=== PATIENT | female | born 1955 | race Caucasian/White ===

== ENCOUNTER 2020-12-05 08:47 | Inpatient (IN) | payer BC ==
[2020-12-05] MEDS: Cefepime 2 GM Vial IVPUSH SCH ×2 (14:58→21:43)
[2020-12-05] MEDS ORDERED: Pantoprazole 40 MG Tab.CR PO ONE (15:54)
[2020-12-05] MEDS ORDERED: Sucralfate 1 GM Tab PO ONE (16:30)
[2020-12-05] MEDS: Metoprolol Tartrate 50 MG Tab PO SCH (18:04)
[2020-12-05] MEDS: Acetaminophen/HYDROcodone 325-10 MG Tab PO PRN ×2 (18:07→21:42)
[2020-12-05] MEDS: Rivaroxaban 15 MG Tab PO SCH (18:09)
--- NOTE | 2020-12-05 20:01 | HP ---
This is a swing bed admission. HISTORY OF PRESENT ILLNESS: This is a 65-year-old female who was transferred here for swing bed care from [facility] in [place]. I received the report yesterday provider to provider from Marilyn De La O, who is a certified nurse practitioner at [place]. Essentially, the patient had a laminectomy for an L1 fracture on November 03, 2020. This was following a compression fracture with kyphoplasty. She did fairly well initially, but started having significant increase in her back pain that was eventually very severe and nonradiating. The pain was mostly in the lower back where she has had the surgery. She was advised to be admitted and have surgical debridement. This was performed. In surgery, they noticed that there was an opening that was tracking deep inside and the bone was exposed. The patient ended up instrumented from L4 to T10. She did develop a Pseudomonas infection. She is immunocompromised as she is on prednisone 10 mg daily for "blood vessel inflammation" which could be vasculitis. She has poor healing. She initially had a wound VAC; however, this has been discontinued. The patient has been anemic with a hemoglobin of 8.9. She developed a left DVT and was prescribed Xarelto starting at a 15 mg dose increasing to 20 mg. She is on IV cefepime. She follows up with Infectious Disease in one week. She also follows up with Dr. Nolasco on December 18. She needs to have lab work drawn on November 18, which will include a CBC, CMP, CRP and sedimentation rate as well as a creatinine. SPECIAL INSTRUCTIONS: On discharge included the patient is a full code. She does need physical and occupational therapy to treat and evaluate. She is on a regular diet. She is to have knee-high SHASHANK hose. She may have a cold pack to the operative site. She does have a PICC line for antibiotic administration. Aquacel is to be changed on December 08 to dry gauze and then change daily. She is to be up with an [place] brace. The patient does have a history of hypertension and myocardial infarction. She has tizanidine as well as baclofen for muscle spasms. She has been prescribed metoprolol, lisinopril as well as hydrochlorothiazide for her hypertension. She developed a DVT postop and is taking Xarelto. She does have some neuropathic pain and is taking Lyrica. She has a blood vessel inflammation which seems to be possibly a vasculitis and is taking Lyrica. For her postop infection, she is receiving cefepime. She does have gastroesophageal reflux disease and a history of kidney stones as well as endometriosis. She does have restless legs syndrome as well as headaches. PAST SURGICAL HISTORY: Includes tonsillectomy, appendectomy, cholecystectomy, kidney stone extraction, a total abdominal hysterectomy with BSO and an ovarian cyst removal. Left ankle fracture with left ankle stabilization and spinal surgery most recently. SOCIAL HISTORY: She does use caffeine on a daily basis. She does not use alcohol. She does not use tobacco. The patient is from [facility]. REVIEW OF SYSTEMS: Negative except for what is done in the HPI. PHYSICAL EXAMINATION: Physical exam will be dictated as an addendum. IMPRESSION/PLAN: 1. Deconditioning. She is here for physical therapy as well as occupational therapy. 2. Status post compression fracture with kyphoplasty as well as a laminectomy leading to L4-T10 instrumentation with postop infection. This did grow Pseudomonas and she is on IV cefepime. 3. Blood vessel inflammation, on prednisone. 4. Hypertension, stable on three antihypertensive agents. 5. Coronary artery disease with previous CA, stable. 6. Anemia and most recent hemoglobin was 8.9. 7. She has sustained a left DVT and is currently taking Xarelto. She does have a followup with Infectious Disease on December 18. She sees Dr. Nolasco on December 18 at 1:30 p.m. She will have labs drawn prior to that appointment. I did receive most of my information from her records which were faxed from [facility] as well as from her direct care provider at [place], Marilyn De La O. /[id number]/MODL
[2020-12-05] MEDS: tiZANidine 4 MG Tab PO PRN (20:19)
[2020-12-05] MEDS ORDERED: [UNRECOGNIZED DRUG - OTHER] PO SCH (21:00)
[2020-12-05] MEDS: Pregabalin 100 MG Cap PO SCH (21:42)
[2020-12-05] MEDS: Pramipexole 0.125 MG Tab PO SCH (21:43)
[2020-12-06] MEDS: ALPRAZolam 0.25 MG Tab PO PRN (02:33)
[2020-12-06] MEDS: Cefepime 2 GM Vial IVPUSH SCH ×3 (05:46→21:44)
[2020-12-06] MEDS: Acetaminophen/HYDROcodone 325-10 MG Tab PO PRN ×3 (07:20→17:00)
[2020-12-06] MEDS: Pantoprazole 40 MG Tab.CR PO SCH (07:20)
[2020-12-06] MEDS ORDERED: UBIDECARENONE 100 MG PO SCH (09:00)
[2020-12-06] MEDS ORDERED: [UNRECOGNIZED DRUG - OTHER] PO SCH (09:00)
[2020-12-06] MEDS ORDERED: BORAGE PO SCH (09:00)
[2020-12-06] MEDS ORDERED: FISH OIL PO SCH (09:00)
[2020-12-06] MEDS ORDERED: FLAX PO SCH (09:00)
[2020-12-06] MEDS: Oxybutynin 5 MG Tab.ER PO SCH (09:16)
[2020-12-06] MEDS: Cholecalciferol (Vitamin D3) 25 MCG Tab PO SCH (09:18)
[2020-12-06] MEDS: DULoxetine 30 MG Cap PO SCH (09:18)
[2020-12-06] MEDS: predniSONE 10 MG Tab PO SCH (09:18)
[2020-12-06] MEDS: Folic Acid 1 MG Tab PO SCH (09:19)
[2020-12-06] MEDS: Multivitamins with Minerals/Iron/Folic Acid/Lycopene Tab PO SCH (09:19)
[2020-12-06] MEDS: Metoprolol Tartrate 50 MG Tab PO SCH ×2 (09:19→18:07)
[2020-12-06] MEDS: Hydrochlorothiazide 25 MG Tab PO SCH (09:19)
[2020-12-06] MEDS: Lisinopril 20 MG Tab PO SCH (09:20)
[2020-12-06] MEDS: Rivaroxaban 15 MG Tab PO SCH ×2 (09:20→18:07)
[2020-12-06] MEDS: Isosorbide Mononitrate 30 MG Tab.ER PO SCH (09:20)
--- NOTE | 2020-12-06 09:33 | HP ---
ADDENDUM: PHYSICAL EXAMINATION: VITAL SIGNS: Temperature is 96.7, pulse 75, respirations 20, blood pressure 154/81, and oxygen saturation is 95% on room air. SKIN: Warm, pale, dry to touch. She does have a 12 inch incision on the posterior aspect of her torso in the lumbar spine area. There are several emily intact. There is no erythema, edema, or drainage from the incision. CARDIAC: Reveals S1, S2 to be normal. Rate and rhythm are regular. She does have a 2/6 murmur over the precordium. She has been told she has a murmur in the past. She is status post coronary artery stenting. LUNGS: Clear without rales, wheezes, or rhonchi. ABDOMEN: Soft, obese, and nontender. EXTREMITIES: She does have pedal edema, which is pitting 2+ about correction up her lower extremities. /[id number]/MODL
[2020-12-06] MEDS: Pregabalin 100 MG Cap PO SCH ×2 (09:37→21:44)
[2020-12-06] MEDS: tiZANidine 4 MG Tab PO PRN ×2 (14:45→22:02)
[2020-12-06] MEDS: Baclofen 10 MG Tab PO PRN (18:10)
[2020-12-06] MEDS: Pramipexole 0.125 MG Tab PO SCH (21:44)
[2020-12-07] MEDS: Acetaminophen/HYDROcodone 325-10 MG Tab PO PRN ×3 (04:22→18:27)
[2020-12-07] MEDS: Cefepime 2 GM Vial IVPUSH SCH ×3 (05:56→21:58)
[2020-12-07] MEDS: Pantoprazole 40 MG Tab.CR PO SCH (08:01)
[2020-12-07] MEDS: Rivaroxaban 15 MG Tab PO SCH ×2 (08:01→18:27)
[2020-12-07] MEDS: predniSONE 10 MG Tab PO SCH (08:01)
[2020-12-07] MEDS: Cholecalciferol (Vitamin D3) 25 MCG Tab PO SCH (08:53)
[2020-12-07] MEDS: Folic Acid 1 MG Tab PO SCH (08:53)
[2020-12-07] MEDS: Pregabalin 100 MG Cap PO SCH ×2 (08:53→21:55)
[2020-12-07] MEDS: Multivitamins with Minerals/Iron/Folic Acid/Lycopene Tab PO SCH (08:53)
[2020-12-07] MEDS: DULoxetine 30 MG Cap PO SCH (08:53)
[2020-12-07] MEDS: Oxybutynin 5 MG Tab.ER PO SCH (08:54)
[2020-12-07] MEDS: Lisinopril 20 MG Tab PO SCH (08:54)
[2020-12-07] MEDS: Metoprolol Tartrate 50 MG Tab PO SCH ×2 (08:54→18:28)
[2020-12-07] MEDS: Isosorbide Mononitrate 30 MG Tab.ER PO SCH (08:54)
[2020-12-07] MEDS: Hydrochlorothiazide 25 MG Tab PO SCH (08:55)
[2020-12-07] MEDS: tiZANidine 4 MG Tab PO PRN ×2 (10:53→20:07)
[2020-12-07] MEDS: Pramipexole 0.125 MG Tab PO SCH (21:55)
[2020-12-08] MEDS: Acetaminophen/HYDROcodone 325-10 MG Tab PO PRN ×5 (00:23→19:19)
[2020-12-08] MEDS: Cefepime 2 GM Vial IVPUSH SCH ×3 (06:05→21:41)
[2020-12-08] MEDS: Pantoprazole 40 MG Tab.CR PO SCH (07:45)
[2020-12-08 08:04] LABS: ANION GAP 12.4 mmol/L (5-15); CHLORIDE,CL 101 mmol/L (98-107); SODIUM,NA 142 mmol/L (136-145)
[2020-12-08] MEDS: predniSONE 10 MG Tab PO SCH (08:08)
[2020-12-08] MEDS: Metoprolol Tartrate 50 MG Tab PO SCH ×2 (08:08→18:03)
[2020-12-08] MEDS: Rivaroxaban 15 MG Tab PO SCH ×2 (08:09→18:04)
[2020-12-08] MEDS: Multivitamins with Minerals/Iron/Folic Acid/Lycopene Tab PO SCH (08:10)
[2020-12-08] MEDS: Folic Acid 1 MG Tab PO SCH (08:10)
[2020-12-08] MEDS: Lisinopril 20 MG Tab PO SCH (08:10)
[2020-12-08] MEDS: Oxybutynin 5 MG Tab.ER PO SCH (08:10)
[2020-12-08] MEDS: DULoxetine 30 MG Cap PO SCH (08:10)
[2020-12-08] MEDS: Cholecalciferol (Vitamin D3) 25 MCG Tab PO SCH (08:11)
[2020-12-08] MEDS: Isosorbide Mononitrate 30 MG Tab.ER PO SCH (08:11)
[2020-12-08] MEDS: Hydrochlorothiazide 25 MG Tab PO SCH (08:11)
[2020-12-08] MEDS: Pregabalin 100 MG Cap PO SCH ×2 (08:20→20:30)
[2020-12-08] MEDS: tiZANidine 4 MG Tab PO PRN ×2 (09:45→20:30)
[2020-12-08] MEDS: ALPRAZolam 0.25 MG Tab PO PRN (12:51)
[2020-12-08] MEDS: Pramipexole 0.125 MG Tab PO SCH (20:30)
[2020-12-09] MEDS: Cefepime 2 GM Vial IVPUSH SCH ×3 (05:57→20:59)
[2020-12-09] MEDS: tiZANidine 4 MG Tab PO PRN ×2 (05:57→15:05)
[2020-12-09] MEDS: Pantoprazole 40 MG Tab.CR PO SCH ×2 (05:58→06:36)
[2020-12-09] MEDS: Metoprolol Tartrate 50 MG Tab PO SCH ×2 (08:16→17:58)
[2020-12-09] MEDS: Multivitamins with Minerals/Iron/Folic Acid/Lycopene Tab PO SCH (08:16)
[2020-12-09] MEDS: Lisinopril 20 MG Tab PO SCH (08:17)
[2020-12-09] MEDS: predniSONE 10 MG Tab PO SCH (08:18)
[2020-12-09] MEDS: Cholecalciferol (Vitamin D3) 25 MCG Tab PO SCH (08:19)
[2020-12-09] MEDS: Rivaroxaban 15 MG Tab PO SCH ×2 (08:19→17:58)
[2020-12-09] MEDS: Isosorbide Mononitrate 30 MG Tab.ER PO SCH (08:19)
[2020-12-09] MEDS: DULoxetine 30 MG Cap PO SCH (08:20)
[2020-12-09] MEDS: Hydrochlorothiazide 25 MG Tab PO SCH (08:20)
[2020-12-09] MEDS: Folic Acid 1 MG Tab PO SCH (08:24)
[2020-12-09] MEDS: Oxybutynin 5 MG Tab.ER PO SCH (08:24)
[2020-12-09] MEDS: Pregabalin 100 MG Cap PO SCH ×2 (08:27→20:59)
[2020-12-09] MEDS: Acetaminophen/HYDROcodone 325-10 MG Tab PO PRN ×2 (08:27→13:23)
[2020-12-09] MEDS ORDERED: Potassium Chloride 20 MEQ Tab.ER PO ONE ×2 (09:26→13:30)
--- NOTE | 2020-12-09 14:43 | PCM.PN ---
- General Info Date of Service: 12/09/20 Admission Dx/Problem (Free Text): Post-op infection, weakness. - Review of Systems Systems Review Comment:: Fallon is [facility] [place]. She was admitted on 12/04/2020 to [facility]. She is frustrated currently as she had an appointment with ID today and had to go to [place] for this and riding in a car is painful for her. She states when she got there it was actually a telehealth visit and she thought she would be seeing someone in person. She had a laminectomy for a L1 fracture on 11/03 and developed a post-op pseudomonas infection and is currently being treated with cefepime 2 grams q 8 hours via mid-line access. She states ID told her she needed an additional 6 weeks of antibiotics and she was questioning how she would be able to do this at home as she does not have help and cannot access the line herself. She is fever free. She states her pain is well controlled with hydrocodone and muscle relaxers "when I don't overdo it". She developed a post-op DVT while at [place] and is currently on Xarelto 15 mg PO BID for a total of 21 days then decreasing to 20 mg PO daily. She has had 2 days of some blood in her stools and notes she is not current on her colonoscopy but feels this is related to the Xarelto. She has chronic anemia. She was also noted to be hypokalemia in labs from 12/08 and she was given KCl 40 mEq PO x 1 dose today (12/09) with recheck tomorrow. She does not take potassium supplements as an outpatient. - Patient Data Vitals - Most Recent: Last Vital Signs Temp 98.8 F 12/09/20 06:27 Pulse 77 12/09/20 08:16 Resp 18 12/09/20 06:27 BP 100/59 L 12/09/20 08:19 Pulse Ox 93 L 12/09/20 06:27 Weight - Most Recent: 216 lb I&O - Last 24 Hours: Intake & Output 12/08/20 12/09/20 12/09/20 22:59 06:59 14:59 Intake Total 500 50 240 Balance 500 50 240 Lab Results Last 24 Hours: Laboratory Results - last 24 hr 12/08/20 Range/Units 07:15 ESR 34 H (0-30) mm/hr Med Orders - Current: Current Medications Hydrocodone Bitart/Acetaminophen (Acetaminophen/Hydrocodone 325-10 Mg Tab) 1 tab PO Q4H PRN PRN Reason: Pain Last Admin: 12/09/20 13:23 Dose: 1 tab Documented by: Alprazolam (Alprazolam 0.25 Mg Tab) 1 mg PO BID PRN PRN Reason: Anxiety Last Admin: 12/08/20 12:51 Dose: 1 mg Documented by: Baclofen (Baclofen 10 Mg Tab) 10 mg PO TID PRN PRN Reason: Muscle Spasm - Painful Last Admin: 12/06/20 18:10 Dose: 10 mg Documented by: Cefepime HCl (Cefepime 2 Gm Vial) 2 gm IVPUSH Q8H [facility] Last Admin: 12/09/20 13:24 Dose: 2 gm Documented by: Cholecalciferol (Cholecalciferol (Vitamin D3) 25 Mcg Tab) 25 mcg PO DAILY [facility] Last Admin: 12/09/20 08:19 Dose: 25 mcg Documented by: Duloxetine HCl (Duloxetine 30 Mg Cap) 30 mg PO DAILY [facility] Last Admin: 12/09/20 08:20 Dose: 30 mg Documented by: Folic Acid (Folic Acid 1 Mg Tab) 2 mg PO DAILY [facility] Last Admin: 12/09/20 08:24 Dose: 2 mg Documented by: Hydrochlorothiazide (Hydrochlorothiazide 25 Mg Tab) 25 mg PO DAILY [facility] Last Admin: 12/09/20 08:20 Dose: 25 mg Documented by: Isosorbide Mononitrate (Isosorbide Mononitrate 30 Mg Tab.Er) 30 mg PO DAILY [facility] Last Admin: 12/09/20 08:19 Dose: 30 mg Documented by: Lisinopril (Lisinopril 20 Mg Tab) 20 mg PO DAILY [facility] Last Admin: 12/09/20 08:17 Dose: 20 mg Documented by: Metoprolol Tartrate (Metoprolol Tartrate 50 Mg Tab) 50 mg PO BIDMEALS [facility] Last Admin: 12/09/20 08:16 Dose: 50 mg Documented by: Multivitamins/Minerals (Multivitamins With Minerals/Iron/Folic Acid/Lycopene Tab) 1 tab PO DAILY [facility] Last Admin: 12/09/20 08:16 Dose: 1 tab Documented by: Non-Formulary Medication (Rivaroxaban [Xarelto]) 20 mg PO DAILY [facility] Oxybutynin Chloride (Oxybutynin 5 Mg Tab.Er) 10 mg PO DAILY [facility] Last Admin: 12/09/20 08:24 Dose: 10 mg Documented by: Pantoprazole Sodium (Pantoprazole 40 Mg Tab.Cr) 40 mg PO ACBREAKFAST [facility] Last Admin: 12/09/20 06:36 Dose: Not Given Documented by: Pramipexole Dihydrochloride (Pramipexole 0.125 Mg Tab) 0.125 mg PO BEDTIME [facility] Last Admin: 12/08/20 20:30 Dose: 0.125 mg Documented by: Prednisone (Prednisone 10 Mg Tab) 10 mg PO WITHBREAKFAST [facility] Last Admin: 12/09/20 08:18 Dose: 10 mg Documented by: Pregabalin (Pregabalin 100 Mg Cap) 100 mg PO BID [facility] Last Admin: 12/09/20 08:27 Dose: 100 mg Documented by: Rivaroxaban (Rivaroxaban 15 Mg Tab) 15 mg PO BIDMEALS [facility] Stop: 12/23/20 18:05 Last Admin: 12/09/20 08:19 Dose: 15 mg Documented by: Tizanidine HCl (Tizanidine 4 Mg Tab) 4 mg PO TID PRN PRN Reason: MUSCLE SPASMS Last Admin: 12/09/20 05:57 Dose: 4 mg Documented by: Discontinued Medications Pantoprazole Sodium (Pantoprazole 40 Mg Tab.Cr) 40 mg PO ONETIME ONE Stop: 12/05/20 15:55 Last Admin: 12/05/20 16:14 Dose: 40 mg Documented by: Potassium Chloride (Potassium Chloride 20 Meq Tab.Er) 40 meq PO ONETIME ONE Stop: 12/09/20 09:27 Last Admin: 12/09/20 13:22 Dose: 40 meq Documented by: Potassium Chloride (Potassium Chloride 20 Meq Tab.Er) 40 meq PO ONETIME ONE Stop: 12/09/20 13:31 Last Admin: 12/09/20 13:24 Dose: Not Given Documented by: Sucralfate (Sucralfate 1 Gm Tab) 1 gm PO ONETIME ONE Stop: 12/05/20 16:31 Last Admin: 12/05/20 16:43 Dose: 1 gm Documented by: - Exam General: Alert, Oriented, Cooperative, No Acute Distress Lungs: Clear to Auscultation, Normal Respiratory Effort Cardiovascular: Regular Rate, Regular Rhythm, No Murmurs - Patient Data Lab Results Last 24 hrs: Laboratory Results - last 24 hr 12/08/20 Range/Units 07:15 ESR 34 H (0-30) mm/hr Result Diagrams: 12/08/20 07:15 12/08/20 07:15 Sepsis Event Note - Evaluation Sepsis Screening Result: No Definite Risk - Focused Exam Vital Signs: Vital Signs Temp Pulse Pulse Resp BP BP Pulse Ox 12/09/20 08:19 100/59 L 12/09/20 08:17 100/59 L 12/09/20 08:16 77 100/59 L 12/09/20 06:27 98.8 F 84 18 151/70 H 93 L - Problem List Review Problem List Initiated/Reviewed/Updated: Yes - My Orders Last 24 Hours: My Active Orders 12/10/20 05:11 HEMOGLOBIN/HEMATOCRIT,HH [HEME] AM POTASSIUM,K [CHEM] AM - Assessment Assessment:: Acute hospital Problems: Post-op pseudomonas infection. - Cefepime 2 grams IV q 8 hours x 6 more weeks Weakness - PT and OT eval and treat Hypokalemia 12/08 - KCl 40 mEq PO x 1 dose 12/09 - Recheck K+ on 12/10 BRBPR with chronic anemia - Likely secondary to Xarelto - Check periodic hemoglobin - Colonoscopy as an outpatient Post-up and chronic pain - Hydrocodone/APAP 10/325 mg tabs, 1 tab PO q 4 hours PRN pain. Post-op DVT - Xarelto 15 mg PO BID x 21 days, then 20 mg PO daily - May need to decrease dose if continues with BRBPR Secondary Diagnoses: Fibromyalgia - Lyrica 100 mg PO BID Anxiety - Alprazolam 1 tab PO BID PRN Muscle Spasm - Baclofen 10 mg PO TID PRN - Tizanidine 4 mg PO TID PRN Depression - Duloxetine 30 mg PO daily Behcet Syndrome - Prednisone daily HTN - HCTZ 25 mg PO daily - Lisinopril 20 mg PO daily - Metoprolol 50 mg PO BID CAD - Imdur 30 mg PO daily OAB - Oxybutynin 10 mg PO daily RLS - Pramipexole 0.125 mg PO qhs CODE STATUS: Full Code
[2020-12-09] MEDS: Pramipexole 0.125 MG Tab PO SCH (20:59)
[2020-12-10] MEDS: Pantoprazole 40 MG Tab.CR PO SCH ×3 (05:39→18:02)
[2020-12-10] MEDS: Cefepime 2 GM Vial IVPUSH SCH ×3 (05:39→22:21)
[2020-12-10] MEDS: Acetaminophen/HYDROcodone 325-10 MG Tab PO PRN ×5 (05:43→20:37)
[2020-12-10] MEDS: Oxybutynin 5 MG Tab.ER PO SCH (08:06)
[2020-12-10] MEDS: Cholecalciferol (Vitamin D3) 25 MCG Tab PO SCH (08:07)
[2020-12-10] MEDS: Multivitamins with Minerals/Iron/Folic Acid/Lycopene Tab PO SCH (08:07)
[2020-12-10] MEDS: DULoxetine 30 MG Cap PO SCH (08:08)
[2020-12-10] MEDS: Metoprolol Tartrate 50 MG Tab PO SCH ×2 (08:08→18:01)
[2020-12-10] MEDS: Hydrochlorothiazide 25 MG Tab PO SCH (08:08)
[2020-12-10] MEDS: Pregabalin 100 MG Cap PO SCH ×2 (08:08→20:37)
[2020-12-10] MEDS: predniSONE 10 MG Tab PO SCH (08:08)
[2020-12-10] MEDS: Folic Acid 1 MG Tab PO SCH (08:08)
[2020-12-10] MEDS: Lisinopril 20 MG Tab PO SCH (08:09)
[2020-12-10] MEDS: Rivaroxaban 15 MG Tab PO SCH (08:09)
[2020-12-10] MEDS: Isosorbide Mononitrate 30 MG Tab.ER PO SCH (08:09)
[2020-12-10 10:21] LABS: ANION GAP 12.5 mmol/L (5-15); CHLORIDE,CL 100 mmol/L (98-107); SODIUM,NA 139 mmol/L (136-145)
--- NOTE | 2020-12-10 10:58 | PCM.SN.2 ---
- Free Text/Narrative Note: Fallon continues with blood in her stools with a hemoglobin drop from 9 to 7 in 24 hours. She is not hypotensive or lightheaded. Alk Phos slightly elevated with low protein. Consulted with pharmacy who recommends switching from Xarelto (contraindicated in any kind of hepatic impairment) to Eliquis 5 mg PO BID. Wi ll tranfuse 1 unit PRBC today with repeat hemoglobin in AM. If bleeding persists may need to decrease dose of Eliquis to 2.5 mg PO BID. She is on due to post-op DVT. Patient informed of this and agrees to blood transfusion.
[2020-12-10] MEDS ORDERED: Sodium Chloride 0.9% 250 ML IV SCH (11:15)
[2020-12-10] MEDS: Pramipexole 0.125 MG Tab PO SCH (20:37)
[2020-12-10] MEDS: tiZANidine 4 MG Tab PO PRN (20:37)
[2020-12-10] MEDS ORDERED: diphenhydrAMINE 25 MG Cap PO PRN (22:11)
[2020-12-11] MEDS: Cefepime 2 GM Vial IVPUSH SCH ×3 (05:48→21:31)
[2020-12-11] MEDS: Pantoprazole 40 MG Tab.CR PO SCH ×3 (05:48→17:25)
[2020-12-11] MEDS: Acetaminophen/HYDROcodone 325-10 MG Tab PO PRN ×4 (05:56→22:42)
[2020-12-11] MEDS: DULoxetine 30 MG Cap PO SCH (08:08)
[2020-12-11] MEDS: Oxybutynin 5 MG Tab.ER PO SCH (08:08)
[2020-12-11] MEDS: Hydrochlorothiazide 25 MG Tab PO SCH (08:08)
[2020-12-11] MEDS: Metoprolol Tartrate 50 MG Tab PO SCH ×2 (08:08→17:27)
[2020-12-11] MEDS: Lisinopril 20 MG Tab PO SCH (08:08)
[2020-12-11] MEDS: Apixaban 5 MG Tab PO SCH ×2 (08:08→21:28)
[2020-12-11] MEDS: Isosorbide Mononitrate 30 MG Tab.ER PO SCH (08:08)
[2020-12-11] MEDS: Cholecalciferol (Vitamin D3) 25 MCG Tab PO SCH (08:09)
[2020-12-11] MEDS: Pregabalin 100 MG Cap PO SCH ×2 (08:09→21:28)
[2020-12-11] MEDS: predniSONE 10 MG Tab PO SCH (08:09)
[2020-12-11] MEDS: Folic Acid 1 MG Tab PO SCH (08:09)
[2020-12-11] MEDS: Multivitamins with Minerals/Iron/Folic Acid/Lycopene Tab PO SCH (08:09)
[2020-12-11] MEDS ORDERED: Rivaroxaban 10 MG Tab PO SCH (09:00)
[2020-12-11] MEDS: tiZANidine 4 MG Tab PO PRN ×2 (09:26→21:43)
[2020-12-11] MEDS ORDERED: Aluminum Hydroxide/Magnesium Hydroxide/Simethicone Susp 30 ML Cup PO PRN (10:30)
--- NOTE | 2020-12-11 10:47 | PCM.SN.2 ---
- Free Text/Narrative Note: I was asked to see Jenise in Dr. Larson's absence today as she has developed a rash to her groin and also under her breasts. She states in the past she typically takes probiotic of some sort anytime she has been on antibiotic therapy to peña off yeast infections. She has developed mild pruritic type rash under the breasts and in the groin. Visualization under the breasts shows a irritation mildly pruritic to touch slightly erythematous and lacy consistent with the development of a fungal infection/yeast. I will order ketoconazole cream twice daily to the affected areas and also implement probiotic into her regimen twice daily. She states that she will be finding out later today how many more days of IV antibiotic is required.
[2020-12-11] MEDS: Ketoconazole 15 GM TUBE TOP SCH ×2 (11:16→21:29)
[2020-12-11] MEDS: Lactobacillus Rhamnosus GG (Probiotic) Cap PO SCH ×2 (11:16→21:28)
[2020-12-11] MEDS: Pramipexole 0.125 MG Tab PO SCH (21:28)
[2020-12-12] MEDS: Acetaminophen/HYDROcodone 325-10 MG Tab PO PRN ×4 (02:46→19:57)
[2020-12-12] MEDS: Pantoprazole 40 MG Tab.CR PO SCH ×3 (06:16→17:35)
[2020-12-12] MEDS: Cefepime 2 GM Vial IVPUSH SCH ×3 (06:16→22:00)
[2020-12-12] MEDS: Sodium Chloride 0.9% 10 ML Syringe FLUSH PRN ×4 (06:16→22:03)
[2020-12-12] MEDS: predniSONE 10 MG Tab PO SCH (08:03)
[2020-12-12] MEDS: Metoprolol Tartrate 50 MG Tab PO SCH ×2 (08:03→17:35)
[2020-12-12] MEDS: Cholecalciferol (Vitamin D3) 25 MCG Tab PO SCH (09:01)
[2020-12-12] MEDS: Lactobacillus Rhamnosus GG (Probiotic) Cap PO SCH ×2 (09:01→21:29)
[2020-12-12] MEDS: Multivitamins with Minerals/Iron/Folic Acid/Lycopene Tab PO SCH (09:01)
[2020-12-12] MEDS: Pregabalin 100 MG Cap PO SCH ×2 (09:01→21:29)
[2020-12-12] MEDS: Oxybutynin 5 MG Tab.ER PO SCH (09:02)
[2020-12-12] MEDS: Apixaban 5 MG Tab PO SCH ×2 (09:02→21:29)
[2020-12-12] MEDS: Folic Acid 1 MG Tab PO SCH (09:02)
[2020-12-12] MEDS: Lisinopril 20 MG Tab PO SCH (09:02)
[2020-12-12] MEDS: DULoxetine 30 MG Cap PO SCH (09:02)
[2020-12-12] MEDS: Isosorbide Mononitrate 30 MG Tab.ER PO SCH (09:02)
[2020-12-12] MEDS: Hydrochlorothiazide 25 MG Tab PO SCH (09:03)
[2020-12-12] MEDS: tiZANidine 4 MG Tab PO PRN ×2 (09:08→22:38)
[2020-12-12] MEDS: Ketoconazole 15 GM TUBE TOP SCH ×2 (09:12→21:35)
[2020-12-12] MEDS: Baclofen 10 MG Tab PO PRN (14:32)
[2020-12-12] MEDS: Pramipexole 0.125 MG Tab PO SCH (21:29)
[2020-12-13] MEDS: Cefepime 2 GM Vial IVPUSH SCH ×3 (06:27→22:21)
[2020-12-13] MEDS: Sodium Chloride 0.9% 10 ML Syringe FLUSH PRN ×2 (06:29→06:30)
[2020-12-13] MEDS: Pantoprazole 40 MG Tab.CR PO SCH ×2 (06:31→17:27)
[2020-12-13] MEDS: predniSONE 10 MG Tab PO SCH (07:48)
[2020-12-13] MEDS: Metoprolol Tartrate 50 MG Tab PO SCH ×2 (07:48→17:27)
[2020-12-13] MEDS: Pregabalin 100 MG Cap PO SCH ×2 (08:56→20:08)
[2020-12-13] MEDS: Cholecalciferol (Vitamin D3) 25 MCG Tab PO SCH (08:56)
[2020-12-13] MEDS: Multivitamins with Minerals/Iron/Folic Acid/Lycopene Tab PO SCH (08:57)
[2020-12-13] MEDS: Lactobacillus Rhamnosus GG (Probiotic) Cap PO SCH ×2 (08:57→20:08)
[2020-12-13] MEDS: Lisinopril 20 MG Tab PO SCH (08:57)
[2020-12-13] MEDS: Oxybutynin 5 MG Tab.ER PO SCH (08:57)
[2020-12-13] MEDS: Isosorbide Mononitrate 30 MG Tab.ER PO SCH (08:57)
[2020-12-13] MEDS: Folic Acid 1 MG Tab PO SCH (08:58)
[2020-12-13] MEDS: Apixaban 5 MG Tab PO SCH ×2 (08:58→20:08)
[2020-12-13] MEDS: Ketoconazole 15 GM TUBE TOP SCH ×2 (08:58→20:09)
[2020-12-13] MEDS: Hydrochlorothiazide 25 MG Tab PO SCH (08:58)
[2020-12-13] MEDS: DULoxetine 30 MG Cap PO SCH (08:58)
[2020-12-13] MEDS: Acetaminophen/HYDROcodone 325-10 MG Tab PO PRN ×3 (09:06→20:08)
[2020-12-13] MEDS: tiZANidine 4 MG Tab PO PRN (10:55)
[2020-12-13] MEDS: Pramipexole 0.125 MG Tab PO SCH (20:08)
[2020-12-14] MEDS: Pantoprazole 40 MG Tab.CR PO SCH ×3 (06:11→17:40)
[2020-12-14] MEDS: Acetaminophen/HYDROcodone 325-10 MG Tab PO PRN ×4 (06:11→21:08)
[2020-12-14] MEDS: Sodium Chloride 0.9% 10 ML Syringe FLUSH PRN ×3 (06:11→21:16)
[2020-12-14] MEDS: Cefepime 2 GM Vial IVPUSH SCH ×3 (06:14→21:09)
[2020-12-14] MEDS: Cholecalciferol (Vitamin D3) 25 MCG Tab PO SCH (08:12)
[2020-12-14] MEDS: Pregabalin 100 MG Cap PO SCH ×2 (08:13→21:08)
[2020-12-14] MEDS: Multivitamins with Minerals/Iron/Folic Acid/Lycopene Tab PO SCH (08:13)
[2020-12-14] MEDS: Oxybutynin 5 MG Tab.ER PO SCH (08:13)
[2020-12-14] MEDS: Folic Acid 1 MG Tab PO SCH (08:16)
[2020-12-14] MEDS: Metoprolol Tartrate 50 MG Tab PO SCH ×2 (08:16→17:39)
[2020-12-14] MEDS: predniSONE 10 MG Tab PO SCH (08:16)
[2020-12-14] MEDS: Hydrochlorothiazide 25 MG Tab PO SCH (08:17)
[2020-12-14] MEDS: Apixaban 5 MG Tab PO SCH ×2 (08:17→21:08)
[2020-12-14] MEDS: Lisinopril 20 MG Tab PO SCH (08:17)
[2020-12-14] MEDS: Isosorbide Mononitrate 30 MG Tab.ER PO SCH (08:18)
[2020-12-14] MEDS: DULoxetine 30 MG Cap PO SCH (08:18)
[2020-12-14] MEDS: Lactobacillus Rhamnosus GG (Probiotic) Cap PO SCH ×2 (08:18→21:08)
[2020-12-14] MEDS: Ketoconazole 15 GM TUBE TOP SCH ×2 (09:04→21:09)
[2020-12-14] MEDS: Pramipexole 0.125 MG Tab PO SCH (21:08)
[2020-12-15] MEDS: Acetaminophen/HYDROcodone 325-10 MG Tab PO PRN ×3 (03:40→21:15)
[2020-12-15] MEDS: Cefepime 2 GM Vial IVPUSH SCH ×3 (05:12→21:11)
[2020-12-15] MEDS: Sodium Chloride 0.9% 10 ML Syringe FLUSH PRN ×2 (05:12→05:21)
[2020-12-15] MEDS: tiZANidine 4 MG Tab PO PRN ×2 (05:12→13:35)
[2020-12-15] MEDS: Pantoprazole 40 MG Tab.CR PO SCH ×2 (07:45→18:10)
[2020-12-15] MEDS: Ketoconazole 15 GM TUBE TOP SCH ×2 (08:10→21:17)
[2020-12-15] MEDS: Apixaban 5 MG Tab PO SCH ×2 (08:11→21:11)
[2020-12-15] MEDS: Oxybutynin 5 MG Tab.ER PO SCH (08:11)
[2020-12-15] MEDS: Lisinopril 20 MG Tab PO SCH (08:11)
[2020-12-15] MEDS: predniSONE 10 MG Tab PO SCH (08:11)
[2020-12-15] MEDS: Cholecalciferol (Vitamin D3) 25 MCG Tab PO SCH (08:11)
[2020-12-15] MEDS: Metoprolol Tartrate 50 MG Tab PO SCH ×2 (08:12→18:09)
[2020-12-15] MEDS: Hydrochlorothiazide 25 MG Tab PO SCH (08:12)
[2020-12-15] MEDS: Folic Acid 1 MG Tab PO SCH (08:12)
[2020-12-15] MEDS: DULoxetine 30 MG Cap PO SCH (08:12)
[2020-12-15] MEDS: Isosorbide Mononitrate 30 MG Tab.ER PO SCH (08:12)
[2020-12-15] MEDS: Pregabalin 100 MG Cap PO SCH ×2 (08:12→21:11)
[2020-12-15 08:13] LABS: ANION GAP 10.1 mmol/L (5-15); CHLORIDE,CL 103 mmol/L (98-107); SODIUM,NA 141 mmol/L (136-145)
[2020-12-15] MEDS: Lactobacillus Rhamnosus GG (Probiotic) Cap PO SCH ×2 (08:13→21:11)
[2020-12-15] MEDS: Multivitamins with Minerals/Iron/Folic Acid/Lycopene Tab PO SCH (08:13)
[2020-12-15] MEDS: Pramipexole 0.125 MG Tab PO SCH (21:11)
[2020-12-16] MEDS: Cefepime 2 GM Vial IVPUSH SCH ×3 (05:42→22:46)
[2020-12-16] MEDS: Pantoprazole 40 MG Tab.CR PO SCH ×2 (07:14→16:36)
[2020-12-16] MEDS: Sodium Chloride 0.9% 10 ML Syringe FLUSH PRN ×2 (07:21→16:49)
[2020-12-16] MEDS: Hydrochlorothiazide 25 MG Tab PO SCH (08:13)
[2020-12-16] MEDS: Folic Acid 1 MG Tab PO SCH (08:13)
[2020-12-16] MEDS: Isosorbide Mononitrate 30 MG Tab.ER PO SCH (08:13)
[2020-12-16] MEDS: Apixaban 5 MG Tab PO SCH ×2 (08:13→20:56)
[2020-12-16] MEDS: DULoxetine 30 MG Cap PO SCH (08:13)
[2020-12-16] MEDS: Multivitamins with Minerals/Iron/Folic Acid/Lycopene Tab PO SCH (08:13)
[2020-12-16] MEDS: Pregabalin 100 MG Cap PO SCH ×2 (08:14→20:56)
[2020-12-16] MEDS: Cholecalciferol (Vitamin D3) 25 MCG Tab PO SCH (08:14)
[2020-12-16] MEDS: Lisinopril 20 MG Tab PO SCH (08:14)
[2020-12-16] MEDS: Lactobacillus Rhamnosus GG (Probiotic) Cap PO SCH ×2 (08:14→20:56)
[2020-12-16] MEDS: Oxybutynin 5 MG Tab.ER PO SCH (08:14)
[2020-12-16] MEDS: Acetaminophen/HYDROcodone 325-10 MG Tab PO PRN ×3 (08:14→20:56)
[2020-12-16] MEDS: predniSONE 10 MG Tab PO SCH (08:22)
[2020-12-16] MEDS: Ketoconazole 15 GM TUBE TOP SCH ×2 (08:22→20:57)
[2020-12-16] MEDS: Metoprolol Tartrate 50 MG Tab PO SCH ×2 (08:22→17:35)
[2020-12-16] MEDS: tiZANidine 4 MG Tab PO PRN (19:42)
[2020-12-16] MEDS: Pramipexole 0.125 MG Tab PO SCH (20:56)
[2020-12-17] MEDS: Cefepime 2 GM Vial IVPUSH SCH ×3 (06:02→20:34)
[2020-12-17] MEDS: Acetaminophen/HYDROcodone 325-10 MG Tab PO PRN ×4 (06:02→19:39)
[2020-12-17] MEDS: Pantoprazole 40 MG Tab.CR PO SCH ×3 (06:03→17:09)
[2020-12-17] MEDS: Isosorbide Mononitrate 30 MG Tab.ER PO SCH (08:33)
[2020-12-17] MEDS: Pregabalin 100 MG Cap PO SCH ×2 (08:33→20:34)
[2020-12-17] MEDS: predniSONE 10 MG Tab PO SCH (08:33)
[2020-12-17] MEDS: Multivitamins with Minerals/Iron/Folic Acid/Lycopene Tab PO SCH (08:33)
[2020-12-17] MEDS: Hydrochlorothiazide 25 MG Tab PO SCH (08:34)
[2020-12-17] MEDS: DULoxetine 30 MG Cap PO SCH (08:34)
[2020-12-17] MEDS: Oxybutynin 5 MG Tab.ER PO SCH (08:34)
[2020-12-17] MEDS: Folic Acid 1 MG Tab PO SCH (08:34)
[2020-12-17] MEDS: Apixaban 5 MG Tab PO SCH ×2 (08:34→20:34)
[2020-12-17] MEDS: Metoprolol Tartrate 50 MG Tab PO SCH ×2 (08:35→17:09)
[2020-12-17] MEDS: Lisinopril 20 MG Tab PO SCH (08:35)
[2020-12-17] MEDS: Lactobacillus Rhamnosus GG (Probiotic) Cap PO SCH ×2 (08:35→20:34)
[2020-12-17] MEDS: Ketoconazole 15 GM TUBE TOP SCH (08:36)
[2020-12-17] MEDS: Cholecalciferol (Vitamin D3) 25 MCG Tab PO SCH (08:37)
--- NOTE | 2020-12-17 09:57 | PCM.DCSUM1 ---
Discharge Summary - Hospital Course Free Text/Narrative:: Admission Date: 12/04/2020 Discharge Date: 12/17/2020 Disposition: Home with home health care. Admission Diagnoses: Post-op pseudomonas infection. - Cefepime 2 grams IV q 8 hours x 5 more weeks, stop date to be determined to Infectious Disease Weakness - PT and OT eval and treat in the home Hypokalemia 12/08, resolved - KCl 40 mEq PO x 1 dose 12/09 BRBPR with chronic anemia, BRBPR resolved - Likely secondary to Xarelto - Switched to Eliquis 5 mg PO BID - s/p transfusion of 1 unit PRBC's Post-up and chronic pain - Hydrocodone/APAP 10/325 mg tabs, 1 tab PO q 6 hours PRN pain Post-op DVT - Eliquis 5 mg PO BID Essence Intertrigo - Ketoconazole cream topically BID until resolved Secondary Diagnoses: Fibromyalgia - Lyrica 100 mg PO BID Anxiety - Alprazolam 1 tab PO BID PRN Muscle Spasm - Baclofen 10 mg PO TID PRN - Tizanidine 4 mg PO TID PRN Depression - Duloxetine 30 mg PO daily Behcet Syndrome - Prednisone daily HTN - HCTZ 25 mg PO daily - Lisinopril 20 mg PO daily - Metoprolol 50 mg PO BID CAD - Imdur 30 mg PO daily OAB - Oxybutynin 10 mg PO daily RLS - Pramipexole 0.125 mg PO qhs New Medications at Discharge: - Hydrocodone/APAP 10/325 mg tabs 1 tab PO q 6 hours PRN Pain, #112 to [facility] through outpatient chart - Alprazolam 1 mg PO BID PRN #56 to [facility] through outpatient chart - Pantoprazole 40 mg PO BID - Eliquis 5 mg PO BID - Ketoconazole cream, apply topically to affected areas BID - Probiotic 1 capsule PO BID Of note, she needed additional HCTZ and so this was sent through to her pharmacy as well but this is not a new medication for her. CODE STATUS: Full Code Fallon is seen today on [facility] rounds. She was admitted on 12/04/2020 to [facility]. She had a laminectomy for a L1 fracture on 11/03 and developed a post- op pseudomonas infection and is currently being treated with cefepime 2 grams q 8 hours via mid-line access. She is discharged to home on 12/17 for home in [place]. She developed a post-op DVT while at [facility] and was on Xarelto 15 mg PO BID for a total of 21 days then decreasing to 20 mg PO daily. She had bloody stool and had worsening anemia, requiring tranfusion of 1 unit PRBS's. She has chronic anemia. After consultation with pharmacy we changed her to Eliquis 5 mg PO BID and she has had no further blood in her stool with stable hemoglobin. She was also noted to be hypokalemia in labs from 12/08 and she was given KCl 40 mEq PO x 1 dose 12/09 with recheck that was normal after one dose. She did well with PT and OT. She was in [place] for a follow-up appointment on 12/16 and her emily removed and steri-strips were placed. She will be discharged home with hydrocodone for pain control. This serves as the order and face to face encounter for home health services to include: 1. alf 2. Physical Therapy 3. Occupational Therapy She is home bound due to recent lumbar surgery and inability to drive. She needs long term for home IV antibiotic infusions. She needs PT and OT evaluation and treatment to assess for home safety and for strengthening as she is a fall risk after her surgery and deconditioning. It will also be useful for nursing to evaluate her back incision to ensure there is no further sign of infection. Fallon will be followed by Dr. Travis Bolden in the community setting and he will sign home health orders. Diagnosis: Stroke: No Modified Diggs Scale: Slight Disable;Unable to Carry Out Prev Act.Able to Look After Affairs Modified Uyen Scale Score: 2 - Discharge Data Discharge Date: 12/17/20 Discharge Disposition: Home, W Home Health Agency 06 Condition: Good - Referral to Home Health Date of Face to Face Encounter: 12/17/20 Reason for Homebound Status: Inability to drive after lumbar surgery with post op infection. Primary Care Physician: Travis Mena MD Skilled Need: Nursing, PT, OT - Patient Summary/Data Consults: Consultations 12/05/20 13:29 Consult to Occupational Therapy [OT Evaluation and Treatment] [CONS] Routine Consult to Physical Therapy [PT Evaluation and Treatment] [CONS] Routine - Patient Instructions Diet: Regular Diet as Tolerated Activity: No Strenuous Activities Driving: Do Not Drive Wound/Incision Care: Keep Operative Site/Wound Site Clean and Dry - Discharge Plan *PRESCRIPTION DRUG MONITORING PROGRAM REVIEWED*: No *COPY OF PRESCRIPTION DRUG MONITORING REPORT IN PATIENT FLORA: No Prescriptions/Med Rec: Lactobacillus Rhamnosus GG [Culturelle] 1 cap PO BID #56 cap Apixaban [Eliquis] 5 mg PO BID #56 tablet hydroCHLOROthiazide [Hydrochlorothiazide] 25 mg PO DAILY #28 Ketoconazole [Nizoral 2% Crm] 0 gm TOP BID #15 tube Pantoprazole [ProTONIX] 40 mg PO BIDAC #56 tab.cr Home Medications: Home Meds ALPRAZolam [Alprazolam] 1 mg PO BID PRN 12/05/20 [History] Baclofen 10 mg PO TID PRN 12/05/20 [History] Cefepime [Maxipime] 2 gm IV Q8H 12/05/20 [History] Cholecalciferol (Vitamin D3) [Vitamin D3] 1,000 unit PO DAILY 12/05/20 [History] DULoxetine HCl [Duloxetine HCl] 30 mg PO DAILY 12/05/20 [History] Kristin [place]/Linoleic/Gamoleni [Evening [place] 1,000 mg Sftg] 1,000 mg PO BEDTIME 12/05/20 [History] Evolocumab [Repatha Sureclick] 140 mg SQ Q14D 12/05/20 [History] Fish Oil/Borage/Flax/Om3,6,9 1 [Triple [place] Complex 3-6-9] 1 cap PO DAILY 12/05/20 [History] Folic Acid 2 mg PO DAILY 12/05/20 [History] Hydrocodone/Acetaminophen [Hydrocodone-Acetamin 10-325 mg] 1 - 2 tab PO Q4HR PRN 12/05/20 [History] Isosorbide Mononitrate [Imdur] 30 mg PO DAILY 12/05/20 [History] Metoprolol Tartrate 50 mg PO BIDMEALS 12/05/20 [History] Multivitamin [Multivitamins] 1 tab PO DAILY 12/05/20 [History] Oxybutynin Chloride [Ditropan Xl] 10 mg PO DAILY 12/05/20 [History] Pramipexole [Mirapex] 0.125 mg PO BEDTIME 12/05/20 [History] Pregabalin 100 mg PO BID 12/05/20 [History] Ubidecarenone [Coenzyme Q10] 100 mg PO DAILY 12/05/20 [History] lisinopriL [Lisinopril] 20 mg PO DAILY 12/05/20 [History] predniSONE 10 mg PO DAILY 12/05/20 [History] tiZANidine [Zanaflex] 4 mg PO TID PRN 12/05/20 [History] Apixaban [Eliquis] 5 mg PO BID #56 tablet 12/17/20 [Rx] Ketoconazole [Nizoral 2% Crm] 0 gm TOP BID #15 tube 12/17/20 [Rx] Lactobacillus Rhamnosus GG [Culturelle] 1 cap PO BID #56 cap 12/17/20 [Rx] Pantoprazole [ProTONIX] 40 mg PO BIDAC #56 tab.cr 12/17/20 [Rx] diphenhydrAMINE [Benadryl] 25 mg PO Q8H PRN cap 12/17/20 [Rx] hydroCHLOROthiazide [Hydrochlorothiazide] 25 mg PO DAILY #28 12/17/20 [Rx] Referrals: [facility] [Outside] - Discharge Summary/Plan Comment DC Time >30 min.: Yes (45 minutes spent on discharge) - General Info Date of Service: 12/17/20 Admission Dx/Problem (Free Text: Post-op infection, weakness. - Patient Data Vitals - Most Recent: Last Vital Signs Temp 98.8 F 12/17/20 08:00 Pulse 81 12/17/20 08:35 Resp 14 12/17/20 08:00 BP 154/74 H 12/17/20 08:35 Pulse Ox 96 12/17/20 08:00 Weight - Most Recent: 200 lb 8 oz I&O - Last 24 hours: Intake & Output 12/16/20 12/17/20 12/17/20 22:59 06:59 14:59 Intake Total 250 50 Balance 250 50 Med Orders - Current: Current Medications Hydrocodone Bitart/Acetaminophen (Acetaminophen/Hydrocodone 325-10 Mg Tab) 1 tab PO Q4H PRN PRN Reason: Pain Last Admin: 12/17/20 06:02 Dose: 1 tab Documented by: Al Hydroxide/Mg Hydroxide (Aluminum Hydroxide/Magnesium Hydroxide/Simethicone Susp 30 Ml Cup) 30 ml PO Q4H PRN PRN Reason: Indigestion Last Admin: 12/11/20 11:15 Dose: 30 ml Documented by: Alprazolam (Alprazolam 0.25 Mg Tab) 1 mg PO BID PRN PRN Reason: Anxiety Last Admin: 12/08/20 12:51 Dose: 1 mg Documented by: Apixaban (Apixaban 5 Mg Tab) 5 mg PO BID [facility] Last Admin: 12/17/20 08:34 Dose: 5 mg Documented by: Baclofen (Baclofen 10 Mg Tab) 10 mg PO TID PRN PRN Reason: Muscle Spasm - Painful Last Admin: 12/12/20 14:32 Dose: 10 mg Documented by: Cefepime HCl (Cefepime 2 Gm Vial) 2 gm IVPUSH Q8H [facility] Last Admin: 12/17/20 06:02 Dose: 2 gm Documented by: Cholecalciferol (Cholecalciferol (Vitamin D3) 25 Mcg Tab) 25 mcg PO DAILY [facility] Last Admin: 12/17/20 08:37 Dose: 25 mcg Documented by: Diphenhydramine HCl (Diphenhydramine 25 Mg Cap) 25 mg PO Q8H PRN PRN Reason: Allergies Last Admin: 12/10/20 22:21 Dose: 25 mg Documented by: Duloxetine HCl (Duloxetine 30 Mg Cap) 30 mg PO DAILY [facility] Last Admin: 12/17/20 08:34 Dose: 30 mg Documented by: Folic Acid (Folic Acid 1 Mg Tab) 2 mg PO DAILY [facility] Last Admin: 12/17/20 08:34 Dose: 2 mg Documented by: Hydrochlorothiazide (Hydrochlorothiazide 25 Mg Tab) 25 mg PO DAILY [facility] Last Admin: 12/17/20 08:34 Dose: 25 mg Documented by: Isosorbide Mononitrate (Isosorbide Mononitrate 30 Mg Tab.Er) 30 mg PO DAILY [facility] Last Admin: 12/17/20 08:33 Dose: 30 mg Documented by: Ketoconazole (Ketoconazole 15 Gm Tube) 0 gm TOP BID [facility] Last Admin: 12/17/20 08:36 Dose: 1 applic Documented by: Lactobacillus Rhamnosus (Lactobacillus Rhamnosus Gg (Probiotic) Cap) 1 cap PO BID [facility] Last Admin: 12/17/20 08:35 Dose: 1 cap Documented by: Lisinopril (Lisinopril 20 Mg Tab) 20 mg PO DAILY [facility] Last Admin: 12/17/20 08:35 Dose: 20 mg Documented by: Metoprolol Tartrate (Metoprolol Tartrate 50 Mg Tab) 50 mg PO BIDMEALS [facility] Last Admin: 12/17/20 08:35 Dose: 50 mg Documented by: Multivitamins/Minerals (Multivitamins With Minerals/Iron/Folic Acid/Lycopene Tab) 1 tab PO DAILY [facility] Last Admin: 12/17/20 08:33 Dose: 1 tab Documented by: Oxybutynin Chloride (Oxybutynin 5 Mg Tab.Er) 10 mg PO DAILY [facility] Last Admin: 12/17/20 08:34 Dose: 10 mg Documented by: Pantoprazole Sodium (Pantoprazole 40 Mg Tab.Cr) 40 mg PO BIDAC [facility] Last Admin: 12/17/20 06:29 Dose: Not Given Documented by: Pramipexole Dihydrochloride (Pramipexole 0.125 Mg Tab) 0.125 mg PO BEDTIME [facility] Last Admin: 12/16/20 20:56 Dose: 0.125 mg Documented by: Prednisone (Prednisone 10 Mg Tab) 10 mg PO WITHBREAKFAST [facility] Last Admin: 12/17/20 08:33 Dose: 10 mg Documented by: Pregabalin (Pregabalin 100 Mg Cap) 100 mg PO BID [facility] Last Admin: 12/17/20 08:33 Dose: 100 mg Documented by: Sodium Chloride (Sodium Chloride 0.9% 10 Ml Syringe) 10 ml FLUSH ASDIRECTED PRN PRN Reason: IV Use Last Admin: 12/16/20 16:49 Dose: 10 ml Documented by: Tizanidine HCl (Tizanidine 4 Mg Tab) 4 mg PO TID PRN PRN Reason: MUSCLE SPASMS Last Admin: 12/16/20 19:42 Dose: 4 mg Documented by: Discontinued Medications Sodium Chloride (Normal Saline) 250 mls @ 100 mls/hr IV ASDIRECTED [facility] Stop: 12/15/20 00:59 Last Admin: 12/10/20 11:46 Dose: 100 mls/hr Documented by: Non-Formulary Medication (Rivaroxaban [Xarelto]) 20 mg PO DAILY [facility] Pantoprazole Sodium (Pantoprazole 40 Mg Tab.Cr) 40 mg PO ACBREAKFAST [facility] Last Admin: 12/10/20 06:29 Dose: Not Given Documented by: Pantoprazole Sodium (Pantoprazole 40 Mg Tab.Cr) 40 mg PO ONETIME ONE Stop: 12/05/20 15:55 Last Admin: 12/05/20 16:14 Dose: 40 mg Documented by: Potassium Chloride (Potassium Chloride 20 Meq Tab.Er) 40 meq PO ONETIME ONE Stop: 12/09/20 09:27 Last Admin: 12/09/20 13:22 Dose: 40 meq Documented by: Potassium Chloride (Potassium Chloride 20 Meq Tab.Er) 40 meq PO ONETIME ONE Stop: 12/09/20 13:31 Last Admin: 12/09/20 13:24 Dose: Not Given Documented by: Rivaroxaban (Rivaroxaban 15 Mg Tab) 15 mg PO BIDMEALS [facility] Stop: 12/23/20 18:05 Last Admin: 12/10/20 08:09 Dose: 15 mg Documented by: Rivaroxaban (Rivaroxaban 10 Mg Tab) 20 mg PO DAILY [facility] Sucralfate (Sucralfate 1 Gm Tab) 1 gm PO ONETIME ONE Stop: 12/05/20 16:31 Last Admin: 12/05/20 16:43 Dose: 1 gm Documented by: - Exam General: Reports: Alert, Oriented, Cooperative, No Acute Distress Lungs: Reports: Clear to Auscultation, Normal Respiratory Effort Cardiovascular: Reports: Regular Rate, Regular Rhythm, Murmurs (2/6 systolic murmur) Wound/Incisions: Reports: Healing Well, No Drainage
[2020-12-17] MEDS: tiZANidine 4 MG Tab PO PRN (16:23)
[2020-12-17 17:11] VITALS: BP 166/77; PULSE 70
[2020-12-17] MEDS: Pramipexole 0.125 MG Tab PO SCH (20:34)
[2020-12-24] MEDS ORDERED: Non-Formulary Medication 1 Each (Rivaroxaban [Xarelto] 20 MG Tablet) PO SCH (09:00)
== END 2020-12-17 20:55 | disposition home health service (06) | DRG 862 ==
LOC: KA.MS 11:45
PROVIDERS: ATTEND Internal Medicine
PROC: 30233N1 Transfusion of Nonautologous Red Blood Cells into Peripheral Vein, Percutaneous Approach (ICD-10-PCS; principal; 2020-12-05)
DX: T81.40XD Infection following a procedure, unspecified, subsequent encounter (principal); R53.1 Weakness; B96.5 Pseudomonas (aeruginosa) (mallei) (pseudomallei) as the cause of diseases classified elsewhere; D64.9 Anemia, unspecified; E87.6 Hypokalemia; I10 Essential (primary) hypertension; D84.9 Immunodeficiency, unspecified; K21.9 Gastro-esophageal reflux disease without esophagitis; G25.81 Restless legs syndrome; I25.10 Atherosclerotic heart disease of native coronary artery without angina pectoris; R21 Rash and other nonspecific skin eruption; G89.29 Other chronic pain; M79.7 Fibromyalgia; F41.9 Anxiety disorder, unspecified; M62.838 Other muscle spasm; F32.9 Major depressive disorder, single episode, unspecified; Z86.718 Personal history of other venous thrombosis and embolism; Z79.01 Long term (current) use of anticoagulants; Z79.899 Other long term (current) drug therapy; Z79.52 Long term (current) use of systemic steroids; I25.2 Old myocardial infarction; Z87.442 Personal history of urinary calculi; Z90.49 Acquired absence of other specified parts of digestive tract; Z90.89 Acquired absence of other organs; B37.2 Candidiasis of skin and nail
CPT/HCPCS: 36415; 36430; 80048; 80053; 84132; 85014; 85018; 85025; 85652; 86140; 86850; 86900; 86901; 86920; 86922; 97110-GP; 97161-GP; 97530-GO; A9270-GY; J0692; J7050; J7512; P9016; U0002

== ENCOUNTER 2020-12-22 18:25 | Emergency (ER) | payer BC ==
--- NOTE | 2020-12-22 18:40 | EDM.PDOC ---
ED HPI GENERAL MEDICAL PROBLEM - General Chief Complaint: Back Pain or Injury Stated Complaint: PAIN Time Seen by Provider: 12/22/20 18:40 Source of Information: Reports: Patient, Family - History of Present Illness INITIAL COMMENTS - FREE TEXT/NARRATIVE: Fallon, 65-year-old female, presents by private vehicle accompanied by her dariana for worsening back pain. She was discharged from the facility here 17 December in the later afternoon. She states that she had some discomfort increasing that night and by 18 December had worsening pain increasing to a 9 on a scale of 10 today. She denies any injuries, falls, or other factors. Her states she has been slightly more forgetful the past couple days than what she had been but attributed to the extended stay in the hospital for her rehabilitation phase. Denies fever chills or other exposures. Denies any deficits other than restricted by her discomfort. Has been compliant with antibiotic regimen but unfortunately has not been taking her Eliquis as she was unable to get that from the pharmacy after her discharge. It is noted that there was no communication back to the facility here regarding her medication or elevation of her pain. Onset: Gradual Onset Date: 12/18/20 Onset Time: 01:00 Duration: Day(s):, Getting Worse Location: Reports: Back Quality: Reports: Ache, Burning, Sharp Severity: Severe Improves with: Reports: None Worsens with: Reports: Movement Lower Back Pain Score (Numeric/FACES): 9 - Related Data Allergies Allergy/AdvReac Type Severity Reaction Status Date / Time atorvastatin Allergy Unknown Cannot Verified 12/22/20 19:23 Remember oseltamivir Allergy Unknown Cannot Verified 12/22/20 19:23 Remember Penicillins Allergy Unknown Cannot Verified 12/22/20 19:23 Remember rosuvastatin Allergy Unknown Cannot Verified 12/22/20 19:23 Remember Home Meds: Home Meds ALPRAZolam [Alprazolam] 1 mg PO BID PRN 12/05/20 [History] Baclofen 10 mg PO TID PRN 12/05/20 [History] Cefepime [Maxipime] 2 gm IV Q8H 12/05/20 [History] Cholecalciferol (Vitamin D3) [Vitamin D3] 1,000 unit PO DAILY 12/05/20 [History] DULoxetine HCl [Duloxetine HCl] 30 mg PO DAILY 12/05/20 [History] Kristin Free Soil/Linoleic/Gamoleni [Evening Free Soil 1,000 mg Sftg] 1,000 mg PO BEDTIME 12/05/20 [History] Evolocumab [Repatha Sureclick] 140 mg SQ Q14D 12/05/20 [History] Fish Oil/Borage/Flax/Om3,6,9 1 [Triple Topock Complex 3-6-9] 1 cap PO DAILY 12/05/20 [History] Folic Acid 2 mg PO DAILY 12/05/20 [History] Hydrocodone/Acetaminophen [Hydrocodone-Acetamin 10-325 mg] 1 - 2 tab PO Q4HR PRN 12/05/20 [History] Isosorbide Mononitrate [Imdur] 30 mg PO DAILY 12/05/20 [History] Metoprolol Tartrate 50 mg PO BIDMEALS 12/05/20 [History] Multivitamin [Multivitamins] 1 tab PO DAILY 12/05/20 [History] Oxybutynin Chloride [Ditropan Xl] 10 mg PO DAILY 12/05/20 [History] Pramipexole [Mirapex] 0.125 mg PO BEDTIME 12/05/20 [History] Pregabalin 100 mg PO BID 12/05/20 [History] Ubidecarenone [Coenzyme Q10] 100 mg PO DAILY 12/05/20 [History] lisinopriL [Lisinopril] 20 mg PO DAILY 12/05/20 [History] predniSONE 10 mg PO DAILY 12/05/20 [History] tiZANidine [Zanaflex] 4 mg PO TID PRN 12/05/20 [History] Apixaban [Eliquis] 5 mg PO BID #56 tablet 12/17/20 [Rx] Ketoconazole [Nizoral 2% Crm] 0 gm TOP BID #15 tube 12/17/20 [Rx] Lactobacillus Rhamnosus GG [Culturelle] 1 cap PO BID #56 cap 12/17/20 [Rx] Pantoprazole [ProTONIX] 40 mg PO BIDAC #56 tab.cr 12/17/20 [Rx] diphenhydrAMINE [Benadryl] 25 mg PO Q8H PRN cap 12/17/20 [Rx] hydroCHLOROthiazide [Hydrochlorothiazide] 25 mg PO DAILY #28 12/17/20 [Rx] Apixaban [Eliquis] 5 mg PO BID 28 Days #56 tablet 12/22/20 [Rx] Past Medical History HEENT History: Reports: Impaired Vision Other HEENT History: glasses Cardiovascular History: Reports: MT Gastrointestinal History: Reports: None Genitourinary History: Reports: UTI, Recurrent, Other (See Below) Other Genitourinary History: kidney stones and HX of urinary tract infections 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: Endometrial Ablation, Musculoskeletal History: Reports: Back Pain, Chronic, Osteoporosis Psychiatric History: Reports: None Hematologic History: Reports: Anemia, Folic Acid - Infectious Disease History Infectious Disease History: Reports: Chicken Pox, Influenza, Measles - Past Surgical History HEENT Surgical History: Reports: Tonsillectomy Cardiovascular Surgical History: Reports: Other (See Below) Other Cardiovascular Surgeries/Procedures: stents placed during MT Female Surgical History: Reports: D&C, Endometrial Ablation, Hysterectomy, Kidney stone extraction Musculoskeletal Surgical History: Reports: Other (See Below) Other Musculoskeletal Surgeries/Procedures:: back surgery October 2020 Social & Family History - Family History Family Medical History: No Pertinent Family History - Caffeine Use Caffeine Use: Reports: Coffee ED ROS GENERAL - Review of Systems Review Of Systems: Comprehensive ROS is negative, except as noted in HPI. ED EXAM, GENERAL - Physical Exam Exam: See Below Free Text/Narrative:: Alert, oriented in moderate to severe back discomfort upon her arrival. She was wheeled in via wheelchair and had difficult time getting up onto the bed for assessment. HEENT is negative discharge or deformity she converses freely there is no asymmetry to the facial features. PERRLA no icterus no injection Neck is soft supple I do not appreciate JVD no carotid bruit. Thorax mildly diminished secondary of positioning and effort but no wheezes nor crackles are noted. Cardiac is somewhat distant S1 is 2 I do not appreciate murmur. Abdomen is soft bowel sounds are present there is mild tenderness in the lower thoracic lumbar region limiting her physician for further assessment. Skin is warm and dry with distal pulses present there is no significant tenderness to the legs with her motion or palpation. Return to the room when nurses stated she was unable to answer some questions appropriately as her had been stating she had become more forgetful in the past 2 days. At this time neuro was reassessed with no change in facial symmetry or speech she did not know the day or date. Nursing score of a 2 in the NIH. 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 Plantar flexion dorsiflexion of the lower extremities is symmetrical with no appreciated stroke deficit on my examination. Secondary of her change in mentation a CT of the head was ordered without contrast to rule out CVA. It returned showing chronic small vessel ischemic pattern which could have been made more prominent having been on anticoagulation therapy then abruptly stopped for what ever reason pharmacy did not provide Eliquis last . When I returned to the room to discuss the full process of laboratory analysis as well as testing she is way more appropriate and conversive when I discussed with her the aspects that the insurance did not pay for her to stay any longer in the her 's comments that physical therapy have not eluded to any deficits when they have been doing home therapy plan. She states she is feeling much better at this time and will go home and follow- up with her surgical department with contacting not them tomorrow morning. Course - Vital Signs Last Recorded V/S: Last Vital Signs Temp 98.9 F 12/22/20 21:12 Pulse 105 H 12/22/20 21:46 Resp 19 12/22/20 21:46 BP 155/86 H 12/22/20 21:46 Pulse Ox 98 12/22/20 21:46 - Orders/Labs/Meds Orders: Active Orders 24 hr Category Date Time Status EKG Documentation Completion [RC] ASDIRECTED Care 12/22/20 20:35 Active Insert Arroyo Catheter [Insert Urinary Catheter] [OM.PC] Care 12/22/20 20:15 Ordered Q24H Urinary Catheter Assessment [RC] ASDIRECTED Care 12/22/20 20:10 Active Head wo Cont [CT] Stat Exams 12/22/20 19:37 Ordered CULTURE BLOOD [BC] Stat Lab 12/22/20 19:22 Received CULTURE BLOOD [BC] Stat Lab 12/22/20 19:45 Received Sodium Chloride 0.9% [Normal Saline] 1,000 ml Med 12/22/20 19:00 Active IV ASDIRECTED Blood Culture x2 Reflex Set [OM.PC] Stat Oth 12/22/20 18:48 Ordered EKG 12 Lead [EK] Urgent Ther 12/22/20 20:35 Ordered Medication Orders Sodium Chloride (Normal Saline) 1,000 mls @ 150 mls/hr IV ASDIRECTED NNAMDI Last Admin: 12/22/20 18:59 Dose: 150 mls/hr Documented by: KAI Labs: Laboratory Tests 12/22/20 12/22/20 12/22/20 Range/Units 19:22 19:22 19:22 WBC 8.96 (5.00-10.00) 10^3/uL RBC 3.63 L (3.80-5.50) 10^6/uL Hgb 10.2 L (12.0-16.0) g/dL Hct 33.8 L (37.0-47.0) % MCV 93.1 H D (82.0-92.0) fL MCH 28.1 (27.0-31.0) pg MCHC 30.2 L (32.0-36.0) g/dL RDW 15.1 H (11.5-14.5) % Plt Count 406 H (150-400) 10^3/uL MPV 10.1 (7.4-10.4) fL Immature Gran % (Auto) 0.3 (0.0-5.0) % Neut % (Auto) 67.6 (50.0-70.0) % Lymph % (Auto) 16.6 L (20.0-40.0) % Gaines % (Auto) 13.2 H (2.0-8.0) % Eos % (Auto) 1.5 (1.0-3.0) % Baso % (Auto) 0.8 (0.0-1.0) % Neut # (Auto) 6.06 (2.50-7.00) 10^3/uL Lymph # (Auto) 1.49 (1.00-4.00) 10^3/uL Gaines # (Auto) 1.18 H (0.10-0.80) 10^3/uL Eos # (Auto) 0.13 (0.10-0.30) 10^3/uL Baso # (Auto) 0.07 (0.00-0.10) 10^3/uL Immature Gran # (Auto) 0.03 (0.00-0.50) 10^3/uL APTT (22.8-31.4) SEC Sodium 142 (136-145) mmol/L Potassium 3.4 L D (3.5-5.1) mmol/L Chloride 102 (98-107) mmol/L Carbon Dioxide 28.0 (21.0-32.0) mmol/L Anion Gap 15.4 H (5-15) mmol/L BUN 12 (7-18) mg/dL Creatinine 0.49 L (0.51-1.17) mg/dL Est Cr Clr Drug Dosing 112.79 mL/min Estimated GFR (MDRD) > 60 mL/min Glucose 90 (70-140) mg/dL Lactic Acid 1.5 (0.4-2.0) mmol/L Calcium 9.0 (8.7-10.3) mg/dL Total Bilirubin 0.4 (0.2-1.0) mg/dL AST 22 (15-37) U/L ALT 23 (14-63) U/L Alkaline Phosphatase 153 H (46-116) U/L Total Protein 7.2 (6.4-8.2) g/dL Albumin 3.02 L (3.40-5.00) g/dL Specimen Type Urine Color (YELLOW) Urine Appearance (CLEAR) Urine pH (5.0-9.0) Ur Specific [place] (1.005-1.030) Urine Protein (NEGATIVE) mg/dL Urine Glucose (UA) (NEGATIVE) mg/dL Urine Ketones (NEGATIVE) mg/dL Urine Occult Blood (NEGATIVE) Urine Nitrite (NEGATIVE) Urine Bilirubin (NEGATIVE) Urine Urobilinogen (0.2-1.0) E.U./dL Ur Leukocyte Esterase (NEGATIVE) U Hyaline Cast (Auto) Urine RBC (0-5) /HPF Urine WBC (0-5) /HPF Ur Epithelial Cells /LPF Urine Bacteria (NONE TO FEW) /HPF SARS CoV-2 RNA Rapid GEORGINA (NEGATIVE) 12/22/20 12/22/20 12/22/20 Range/Units 19:22 20:00 20:50 WBC (5.00-10.00) 10^3/uL RBC (3.80-5.50) 10^6/uL Hgb (12.0-16.0) g/dL Hct (37.0-47.0) % MCV (82.0-92.0) fL MCH (27.0-31.0) pg MCHC (32.0-36.0) g/dL RDW (11.5-14.5) % Plt Count (150-400) 10^3/uL MPV (7.4-10.4) fL Immature Gran % (Auto) (0.0-5.0) % Neut % (Auto) (50.0-70.0) % Lymph % (Auto) (20.0-40.0) % Gaines % (Auto) (2.0-8.0) % Eos % (Auto) (1.0-3.0) % Baso % (Auto) (0.0-1.0) % Neut # (Auto) (2.50-7.00) 10^3/uL Lymph # (Auto) (1.00-4.00) 10^3/uL Gaines # (Auto) (0.10-0.80) 10^3/uL Eos # (Auto) (0.10-0.30) 10^3/uL Baso # (Auto) (0.00-0.10) 10^3/uL Immature Gran # (Auto) (0.00-0.50) 10^3/uL APTT 28.1 (22.8-31.4) SEC Sodium (136-145) mmol/L Potassium (3.5-5.1) mmol/L Chloride (98-107) mmol/L Carbon Dioxide (21.0-32.0) mmol/L Anion Gap (5-15) mmol/L BUN (7-18) mg/dL Creatinine (0.51-1.17) mg/dL Est Cr Clr Drug Dosing mL/min Estimated GFR (MDRD) mL/min Glucose (70-140) mg/dL Lactic Acid (0.4-2.0) mmol/L Calcium (8.7-10.3) mg/dL Total Bilirubin (0.2-1.0) mg/dL AST (15-37) U/L ALT (14-63) U/L Alkaline Phosphatase (46-116) U/L Total Protein (6.4-8.2) g/dL Albumin (3.40-5.00) g/dL Specimen Type Urincath Urine Color Yellow (YELLOW) Urine Appearance Clear (CLEAR) Urine pH 5.5 (5.0-9.0) Ur Specific [place] 1.025 (1.005-1.030) Urine Protein 100 H (NEGATIVE) mg/dL Urine Glucose (UA) Negative (NEGATIVE) mg/dL Urine Ketones 40 H (NEGATIVE) mg/dL Urine Occult Blood Trace-intact H (NEGATIVE) Urine Nitrite Negative (NEGATIVE) Urine Bilirubin Negative (NEGATIVE) Urine Urobilinogen 0.2 (0.2-1.0) E.U./dL Ur Leukocyte Esterase Negative (NEGATIVE) U Hyaline Cast (Auto) Few Urine RBC 0-5 (0-5) /HPF Urine WBC 0-5 (0-5) /HPF Ur Epithelial Cells Few /LPF Urine Bacteria Few (NONE TO FEW) /HPF SARS CoV-2 RNA Rapid GEORGINA Negative (NEGATIVE) Meds: Medications Generic Name Dose Route Start Last Admin Trade Name Freq PRN Reason Stop Dose Admin Sodium Chloride 1,000 mls @ 150 mls/hr 12/22/20 19:00 12/22/20 18:59 Normal Saline IV 150 mls/hr ASDIRECTED NNAMDI Administration Discontinued Medications Generic Name Dose Route Start Last Admin Trade Name Freq PRN Reason Stop Dose Admin Apixaban 10 mg 12/22/20 21:35 12/22/20 21:45 Apixaban 5 Mg Tab PO 12/22/20 21:36 10 mg ONETIME ONE Administration Hydromorphone HCl 1 mg 12/22/20 18:47 12/22/20 19:02 Hydromorphone 1 Mg/Ml Syringe IVPUSH 12/22/20 18:48 1 mg ONETIME ONE Administration Ondansetron HCl 8 mg 12/22/20 18:47 12/22/20 19:01 Ondansetron 4 Mg/2 Ml Sdv IVPUSH 12/22/20 18:48 8 mg ONETIME ONE Administration Departure - Departure Time of Disposition: 21:47 Disposition: Home, Self-Care 01 Condition: Good Clinical Impression: Inadequate anticoagulation Back pain Qualifiers: Back pain location: low back pain Chronicity: chronic - Discharge Information *PRESCRIPTION DRUG MONITORING PROGRAM REVIEWED*: Not Applicable *COPY OF PRESCRIPTION DRUG MONITORING REPORT IN PATIENT FLORA: Not Applicable Prescriptions: Apixaban [Eliquis] 5 mg PO BID 28 Days #56 tablet Referrals: Radha Bonilla MD [Primary Care Provider] - Forms: ED Department Discharge Additional Instructions: Your CT scan shows no acute changes, chronic small vessel disease. Your lab work is all within acceptable findings with no changes being made. You need to be taking your Eliquis for the duration of the 28 days to make sure the resolution of the blood clot is complete and that you do not provoke other clotting issues. We have given you a dose for tonight and for tomorrow with a prescription resent to your pharmacy in [place]. Make sure to void in the next 6 hours as we had placed the catheter here short term in ED for testing. You need to follow-up with your surgical service in [place] for any continuation or worsening of your back pain. Take your antibiotic "bulb" tonight when you get home to catch up and then go back to the schedule you had previously been on. Continue all your medications as directed. You need to follow-up with your clinic as needed for further adjustments in medication, and if your insurance issues with the Eliquis call the clinic as well. The confusion/forgetfulness that has been noted the past couple days could be from any factors including age. There is no evidence to find any reason for this on the tests we did this evening. Follow-up with the clinic as needed, contact your back surgery office for checking with them on your recent increase in pain, and follow-up with other providers as needed for your overall health. Sepsis Event Note (ED) - Focused Exam Vital Signs: Vital Signs Temp Pulse Resp BP Pulse Ox 12/22/20 21:46 105 H 19 155/86 H 98 12/22/20 21:12 98.9 F 103 H 19 186/89 H 98 12/22/20 21:00 105 H 19 179/86 H 93 L 12/22/20 19:28 97.5 F 95 20 200/97 H 95 - Problem List & Annotations (1) Back pain SNOMED Code(s): 712626084 Code(s): M54.9 - DORSALGIA, UNSPECIFIED Status: Acute Current Visit: Yes Qualifiers: Back pain location: low back pain Chronicity: chronic (2) Inadequate anticoagulation SNOMED Code(s): 70837938 Code(s): Z51.81 - ENCOUNTER FOR THERAPEUTIC DRUG LEVEL MONITORING; Z79.01 - [facility] (CURRENT) USE OF ANTICOAGULANTS Status: Acute Current Visit: Yes (3) On antibiotic therapy SNOMED Code(s): 271279920 Code(s): YRQ8992 - Status: Acute Current Visit: No - Problem List Review Problem List Initiated/Reviewed/Updated: Yes - My Orders Last 24 Hours: My Active Orders 12/22/20 18:48 Blood Culture x2 Reflex Set [OM.PC] Stat 12/22/20 19:00 Sodium Chloride 0.9% [Normal Saline] 1,000 ml IV ASDIRECTED 12/22/20 19:22 CULTURE BLOOD [BC] Stat 12/22/20 19:37 Head wo Cont [CT] Stat 12/22/20 19:45 CULTURE BLOOD [BC] Stat 12/22/20 20:10 Urinary Catheter Assessment [RC] ASDIRECTED 12/22/20 20:15 Insert Arroyo Catheter [Insert Urinary Catheter] [OM.PC] Q24H 12/22/20 20:35 EKG Documentation Completion [RC] ASDIRECTED EKG 12 Lead [EK] Urgent - Assessment/Plan Last 24 Hours: My Active Orders 12/22/20 18:48 Blood Culture x2 Reflex Set [OM.PC] Stat 12/22/20 19:00 Sodium Chloride 0.9% [Normal Saline] 1,000 ml IV ASDIRECTED 12/22/20 19:22 CULTURE BLOOD [BC] Stat 12/22/20 19:37 Head wo Cont [CT] Stat 12/22/20 19:45 CULTURE BLOOD [BC] Stat 12/22/20 20:10 Urinary Catheter Assessment [RC] ASDIRECTED 12/22/20 20:15 Insert Arroyo Catheter [Insert Urinary Catheter] [OM.PC] Q24H 12/22/20 20:35 EKG Documentation Completion [RC] ASDIRECTED EKG 12 Lead [EK] Urgent Plan: Your CT scan shows no acute changes, chronic small vessel disease. Your lab work is all within acceptable findings with no changes being made. You need to be taking your Eliquis for the duration of the 28 days to make sure the resolution of the blood clot is complete and that you do not provoke other clotting issues. We have given you a dose for tonight and for tomorrow with a prescription resent to your pharmacy in [place]. Make sure to void in the next 6 hours as we had placed the catheter here short term in ED for testing. You need to follow-up with your surgical service in [place] for any continuation or worsening of your back pain. Take your antibiotic "bulb" tonight when you get home to catch up and then go back to the schedule you had previously been on. Continue all your medications as directed. You need to follow-up with your clinic as needed for further adjustments in medication, and if your insurance issues with the Eliquis call the clinic as well. The confusion/forgetfulness that has been noted the past couple days could be from any factors including age. There is no evidence to find any reason for this on the tests we did this evening. Follow-up with the clinic as needed, contact your back surgery office for checking with them on your recent increase in pain, and follow-up with other providers as needed for your overall health.
[2020-12-22] MEDS ORDERED: Ondansetron 4 MG/2 ML SDV IVPUSH ONE (18:47)
[2020-12-22] MEDS ORDERED: HYDROmorphone 1 MG/ML Syringe IVPUSH ONE (18:47)
[2020-12-22] MEDS ORDERED: Sodium Chloride 0.9% 1,000 ML IV SCH (19:00)
[2020-12-22 19:58] LABS: ANION GAP 15.4 mmol/L (5-15); CHLORIDE,CL 102 mmol/L (98-107); SODIUM,NA 142 mmol/L (136-145)
[2020-12-22] MEDS ORDERED: Apixaban 5 MG Tab PO ONE (21:35)
== END 2020-12-22 22:10 | disposition home or self-care (01) ==
LOC: KA.ED 18:25
DX: G89.29 Other chronic pain (principal); M54.5 Low back pain; I25.2 Old myocardial infarction; D64.9 Anemia, unspecified; Z88.8 Allergy status to other drugs, medicaments and biological substances; Z88.0 Allergy status to penicillin; Z79.899 Other long term (current) drug therapy; Z79.01 Long term (current) use of anticoagulants; Z20.822 Contact with and (suspected) exposure to COVID-19
CPT/HCPCS: 36415; 51702; 70450; 80053; 81001; 83605; 85025; 85730; 87040; 93005; 96374; 96375; 99284; 99284-25; A9270-GY; J1170; J2405; J7030; U0002

== ENCOUNTER 2020-12-23 16:14 | Observation (INO) | payer BC ==
[2020-12-23] MEDS ORDERED: Nitroglycerin 0.4 MG Tab.SL SL PRN (16:26)
[2020-12-23] MEDS ORDERED: Lidocaine 2% 100 MG/5 ML Syringe IVPUSH PRN (16:26)
[2020-12-23] MEDS ORDERED: EPINEPHrine 1:10,000 1 MG/10 ML Syringe IVPUSH PRN (16:26)
[2020-12-23] MEDS ORDERED: Atropine 0.1 MG/ML 10 ML Syringe IVPUSH PRN (16:26)
[2020-12-23] MEDS ORDERED: Ondansetron 4 MG/2 ML SDV IVPUSH PRN ×2 (16:43→19:24)
[2020-12-23] MEDS ORDERED: Sodium Chloride 0.9% 500 ML IV ONE ×2 (16:45→17:32)
--- NOTE | 2020-12-23 17:15 | PCM.HP.2 ---
H&P History of Present Illness - General Date of Service: 12/23/20 Admit Problem/Dx: Admission Diagnosis/Problem Admission Diagnosis/Problem Intractable vomiting with nausea Source of Information: Patient, Family - History of Present Illness Onset of Symptoms: Reports: Other (Onset of nausea and vomiting a few days ago) Lower Back Pain Score (Numeric/FACES): 7 - Related Data Allergies/Adverse Reactions: Allergies Allergy/AdvReac Type Severity Reaction Status Date / Time atorvastatin Allergy Unknown Cannot Verified 12/23/20 16:47 Remember oseltamivir Allergy Unknown Cannot Verified 12/23/20 16:47 Remember Penicillins Allergy Unknown Cannot Verified 12/23/20 16:47 Remember rosuvastatin Allergy Unknown Cannot Verified 12/23/20 16:47 Remember Home Medications: Home Meds ALPRAZolam [Alprazolam] 1 mg PO BID PRN 12/05/20 [History] Baclofen 10 mg PO TID PRN 12/05/20 [History] Cefepime [Maxipime] 2 gm IV Q8H 12/05/20 [History] Cholecalciferol (Vitamin D3) [Vitamin D3] 1,000 unit PO DAILY 12/05/20 [History] DULoxetine HCl [Duloxetine HCl] 30 mg PO DAILY 12/05/20 [History] Kristin [place]/Linoleic/Gamoleni [Evening [place] 1,000 mg Sftg] 1,000 mg PO BEDTIME 12/05/20 [History] Evolocumab [Repatha Sureclick] 140 mg SQ Q14D 12/05/20 [History] Fish Oil/Borage/Flax/Om3,6,9 1 [[place] Complex 3-6-9] 1 cap PO DAILY 12/05/20 [History] Folic Acid 2 mg PO DAILY 12/05/20 [History] Hydrocodone/Acetaminophen [Hydrocodone-Acetamin 10-325 mg] 1 - 2 tab PO Q4HR PRN 12/05/20 [History] Isosorbide Mononitrate [Imdur] 30 mg PO DAILY 12/05/20 [History] Metoprolol Tartrate 50 mg PO BIDMEALS 12/05/20 [History] Multivitamin [Multivitamins] 1 tab PO DAILY 12/05/20 [History] Oxybutynin Chloride [Ditropan Xl] 10 mg PO DAILY 12/05/20 [History] Pramipexole [Mirapex] 0.125 mg PO BEDTIME 12/05/20 [History] Pregabalin 100 mg PO BID 12/05/20 [History] Ubidecarenone [Coenzyme Q10] 100 mg PO DAILY 12/05/20 [History] lisinopriL [Lisinopril] 20 mg PO DAILY 12/05/20 [History] predniSONE 10 mg PO DAILY 12/05/20 [History] tiZANidine [Zanaflex] 4 mg PO TID PRN 12/05/20 [History] Ketoconazole [Nizoral 2% Crm] 0 gm TOP BID #15 tube 12/17/20 [Rx] Lactobacillus Rhamnosus GG [Culturelle] 1 cap PO BID #56 cap 12/17/20 [Rx] Pantoprazole [ProTONIX] 40 mg PO BIDAC #56 tab.cr 12/17/20 [Rx] diphenhydrAMINE [Benadryl] 25 mg PO Q8H PRN cap 12/17/20 [Rx] hydroCHLOROthiazide [Hydrochlorothiazide] 25 mg PO DAILY #28 12/17/20 [Rx] Apixaban [Eliquis] 5 mg PO BID 28 Days #56 tablet 12/22/20 [Rx] Past Medical History HEENT History: Reports: Impaired Vision Other HEENT History: glasses Cardiovascular History: Reports: Blood Clots/VTE/DVT, High Cholesterol, Hypertension, [place] Respiratory History: Reports: COPD Gastrointestinal History: Reports: None Genitourinary History: Reports: UTI, Recurrent, Other (See Below) Other Genitourinary History: kidney stones and HX of urinary tract infections [employer] History: Reports: Endometrial Ablation, Musculoskeletal History: Reports: Back Pain, Chronic, Osteoporosis Neurological History: Reports: None Psychiatric History: Reports: None Hematologic History: Reports: Anemia, Folic Acid Immunologic History: Reports: None Oncologic (Cancer) History: Reports: None Dermatologic History: Reports: None - Infectious Disease History Infectious Disease History: Reports: Chicken Pox, Influenza, Measles - Past Surgical History HEENT Surgical History: Reports: Tonsillectomy Cardiovascular Surgical History: Reports: Other (See Below) Other Cardiovascular Surgeries/Procedures: stents placed during [place] Female Surgical History: Reports: D&C, Endometrial Ablation, Hysterectomy, Kidney stone extraction Musculoskeletal Surgical History: Reports: Other (See Below) Other Musculoskeletal Surgeries/Procedures:: back surgery October 2020 Social & Family History - Family History Family Medical History: No Pertinent Family History - Caffeine Use Caffeine Use: Reports: Coffee H&P Review of Systems - Review of Systems: Review Of Systems: See Below General: Reports: Fatigue. Denies: Fever, Chills HEENT: Reports: No Symptoms Pulmonary: Reports: No Symptoms Cardiovascular: Reports: Palpitations, Edema. Denies: Chest Pain Gastrointestinal: Reports: Abdominal Pain, Bloody Stool, Diarrhea, Decreased Appetite, Nausea, Vomiting Genitourinary: Reports: No Symptoms Musculoskeletal: Reports: Back Pain Skin: Reports: No Symptoms Psychiatric: Reports: No Symptoms Neurological: Reports: No Symptoms Hematologic/Lymphatic: Reports: No Symptoms Exam - Exam Exam: See Below - Exam General: Alert, Oriented, Cooperative, Mild Distress HEENT: Conjunctiva Clear Neck: Supple Lungs: Clear to Auscultation, Normal Respiratory Effort Cardiovascular: Regular Rhythm, Tachycardia GI/Abdominal Exam: Soft, No Distention, Tender (Female) Exam: Deferred Rectal (Female) Exam: Deferred Back Exam: Other (healed back incision from surgery in October at [facility] [place]) Extremities: Pedal Edema (2+ bilaterally) Peripheral Pulses: 2+: Dorsalis Pedis (L), Dorsalis Pedis (R) Skin: Warm, Dry, Intact Neuro Extensive - Mental Status: Alert, Oriented x3 Psychiatric: Alert, Anxious, Other (tearful, states "I just want to feel better." ) - Patient Data Result Diagrams: 12/23/20 17:20 12/23/20 17:20 #1 Interpretation EKG Date: 12/23/20 Time: 16:46 Rhythm: Other (Sinus tachycardia with PAC's) Rate (Beats/Min): 104 P-Wave: Present (KS interval 144ms) QRS: Normal (QRS 78ms) ST-T: Normal QT: Normal (QTc 476ms) Comparison: Change From Previous EKG (05/07/19: Sinus bradycardia, Inferior infarct , age undetermined Abnormal ECG Ventricular Rate: 56 BPM Atrial Rate: 56 BPM P-R Interval: 170 ms QRS Duration: 94 ms Q-T Interval: 418 ms QTc Calculation(Bazett): 403 ms) Problem List Initiated/Reviewed/Updated: Yes Orders Last 24hrs: Active Orders 24 hr Category Date Time Status Patient Status [ADT] Routine ADT 12/23/20 16:27 Active Cardiac Monitoring [RC] . DIRECTED Care 12/23/20 16:29 Active EKG Documentation Completion [RC] ASDIRECTED Care 12/23/20 16:32 Active Up With Assistance [RC] ASDIRECTED Care 12/23/20 16:26 Active Vital Signs [RC] Q4H Care 12/23/20 16:27 Active Nothing per Oral Now Diet [DIET] Diet 12/23/20 Dinner Active Abdomen Pelvis w Cont [CT] Routine Exams 12/23/20 16:29 Ordered C-REACTIVE PROTEIN [CHEM] Routine Lab 12/23/20 16:29 Ordered CBC WITH AUTO DIFF [HEME] Routine Lab 12/23/20 16:29 Ordered COMPREHENSIVE METABOLIC PN,CMP [CHEM] Routine Lab 12/23/20 16:29 Ordered CORONAVIRUS COVID-19 RAPID [MOLEC] Urgent Lab 12/23/20 16:29 Ordered LACTIC ACID [CHEM] Routine Lab 12/23/20 16:29 Ordered LIPASE [CHEM] Routine Lab 12/23/20 16:29 Ordered SEDIMENTATION RATE AUTO [HEME] Routine Lab 12/24/20 05:11 Ordered UA W/MICROSCOPIC [URIN] Routine Lab 12/23/20 16:31 Ordered Atropine [Atropine 0.1 MG/ML] Med 12/23/20 16:26 Active See Dose Instructions IVPUSH ASDIRECTED PRN EPINEPHrine [EPINEPHrine 1:10,000] Med 12/23/20 16:26 Active 1 mg IVPUSH ASDIRECTED PRN Lidocaine 2% [Xylocaine 2%] Med 12/23/20 16:26 Active See Dose Instructions IVPUSH ASDIRECTED PRN Nitroglycerin [Nitrostat] Med 12/23/20 16:26 Active 0.4 mg SL ASDIRECTED PRN Ondansetron [Zofran] Med 12/23/20 16:43 Active 4 mg IVPUSH Q6H PRN Sodium Chloride 0.9% [Normal Saline] 1,000 ml Med 12/23/20 16:45 Active IV ASDIRECTED Sodium Chloride 0.9% [Normal Saline] 500 ml Med 12/23/20 16:45 Active IV .BOLUS Resuscitation Status Routine Resus Stat 12/23/20 16:26 Ordered EKG 12 Lead [EK] Routine Ther 12/23/20 16:31 Ordered Medication Orders Atropine Sulfate (Atropine 0.1 Mg/Ml 10 Ml Syringe) 0 mg IVPUSH ASDIRECTED PRN PRN Reason: Heart. Epinephrine HCl (Epinephrine 1:10,000 1 Mg/10 Ml Syringe) 1 mg IVPUSH ASDIRECTED PRN PRN Reason: Heart. Sodium Chloride (Normal Saline) 500 mls @ 999 mls/hr IV .BOLUS ONE Stop: 12/23/20 17:15 Sodium Chloride (Normal Saline) 1,000 mls @ 100 mls/hr IV ASDIRECTED NNAMDI Lidocaine HCl (Lidocaine 2% 100 Mg/5 Ml Syringe) 0 mg IVPUSH ASDIRECTED PRN PRN Reason: Heart. Nitroglycerin (Nitroglycerin 0.4 Mg Tab.Sl) 0.4 mg SL ASDIRECTED PRN PRN Reason: Heart. Ondansetron HCl (Ondansetron 4 Mg/2 Ml Sdv) 4 mg IVPUSH Q6H PRN PRN Reason: Nausea/Vomiting Assessment/Plan Comment:: HPI summary: Kimberly is a 65y F patient who presents to the [facility] today with c/o intractable nausea and vomiting with more than ten episodes reported today after being seen in the [facility] ER last night for complaints of back pain. Labs last night in ER that were overall unremarkable, mild hypokalemia with K 3.4. CT head was completed due to a slight change in mentation without acute process, chronic small vessel ischemia noted. Patient was seen by [facility] home health today which prompted the clinic visit as no nausea medication was prescribed last night in ER. Of note, patient was discharged from [facility] on 12/17/20 where she was under the care of [facility] providers. Patient was in [facility] from 12/[facility]/20 to 12/17/20 for s/p laminectomy for an L1 fracture by Dr Nolasco at [facility] in [place], [place]. This was following a compression fracture with kyphoplasty. Patient developed significant back pain in the post-operative period that was severe and non-radiating and she underwent a surgical debridement during which tunneling was identified with exposed bone. Patient was then instrumented from L4 to L10. She developed a post-op pseudomonal infection. She also developed a DVT and was started on xarelto initially. Patient has a PICC line that does not draw blood, this has been accessed at home to administer cefepime TID on an outpatient basis since going home last week. Patient was to have five more weeks of cefepime for the pseudomonal infection at the time of discharge on 12/17/20 per infectious disease. Hospital course: 12/23/20: Nausea improved after IM zofran in clinic. Patient afebrile, mildly tachycardic HR 106, BP elevated upon admission. Patient is on 3 BP meds at home, she is unsure if she took her medications today or if she was able to keep them down. WBC 9.13, Neutrophils 73.9%, lactic acid 1.2. CMP indicated K 3.4, Alk phos 150, albumin low at 2.90. CRP elevated 9.5. Lipase 38. EKG obtained: sinus tachycardia with PAC's, possible left atrial enlargement, inferior infarct, age undetermined, T wave abnormality. Troponin slightly elevated at 57.900. CT abdomen pelvis without acute process. Will advance diet as tolerated. Hospitalization problems and plan: # Elevated troponin - Initial result of 57.900 - repeat at 2100 to trend # Intractable nausea and vomiting # Abdominal pain. CT abdomen pelvis negative. # Diarrhea with bloody stool - patient had BRBPR while in swing bed which was suspected to be secondary to xarelto, DOAC changed to eliquis PO BID - NS bolus of 500ml, then NS @ 100ml/hr for IV hydration - Zofran 4mg IV Q6H - UA pending - Sed rate pending - Repeat CBC, CMP in am. 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 # PPX: Continue eliquis 5mg PO BID, protonix PO BID # Code status: Full code # Emergency contact: # Disposition: Will admit patient to observation status for IV fluids, antiemeti cs due to intractable nausea and vomiting as well as poor fluid intake for additional labs and workup including CT abdomen/pelvis.
[2020-12-23 17:59] LABS: ANION GAP 15.6 mmol/L (5-15); CHLORIDE,CL 100 mmol/L (98-107); SODIUM,NA 140 mmol/L (136-145)
[2020-12-23] MEDS: Sodium Chloride 0.9% 1,000 ML IV SCH (18:00)
[2020-12-23] MEDS ORDERED: Iopamidol 755 Mg/ML 75 ML Bottle IVPUSH ONE (18:13)
[2020-12-23] MEDS ORDERED: Sodium Chloride 0.9% 50 ML IV ONE (18:15)
[2020-12-23] MEDS ORDERED: Cefepime 2 GM Vial IV SCH (18:15)
[2020-12-23] MEDS ORDERED: ALPRAZolam 0.25 MG Tab PO PRN (18:50)
[2020-12-23] MEDS ORDERED: Baclofen 10 MG Tab PO PRN (18:50)
[2020-12-23] MEDS ORDERED: Acetaminophen/HYDROcodone 325-10 MG Tab PO PRN (18:50)
--- NOTE | 2020-12-23 18:56 | CT ---
[id number] CT/CT Abdomen Pelvis W IV EXAM: CT Abdomen Pelvis W IV CLINICAL DATA: ABDOMINAL PAIN COMPARISON: No previous similar exam is available. FINDINGS: The liver and spleen are unremarkable. The kidneys and adrenals show no abnormality. The aorta and pancreas are within normal limits. There is no bowel distention. There is no bowel wall thickening either. There is no free fluid or free air. There is no adenopathy. The pelvis shows no mass, free fluid, abscess, inflammatory change, or adenopathy. IMPRESSION: NO ACUTE PROCESS. James Fonseca MD 12/23/20 [id number] Thank you for allowing us to participate in the care of your patient.
[2020-12-23] MEDS: Cefepime 2 GM in Sodium Chloride 0.9% 50 ML IV SCH (19:32)
[2020-12-23] MEDS: tiZANidine 4 MG Tab PO PRN (20:37)
[2020-12-23] MEDS: Pregabalin 100 MG Cap PO SCH (20:37)
[2020-12-23] MEDS: Apixaban 5 MG Tab PO SCH (20:37)
[2020-12-23] MEDS ORDERED: Pramipexole 0.125 MG Tab PO SCH (21:00)
[2020-12-23] MEDS ORDERED: HYDROmorphone 1 MG/ML Syringe IVPUSH PRN (21:01)
[2020-12-23] MEDS: Metoprolol Tartrate 5 MG/5 ML SDV IVPUSH ONE ×2 (21:30→21:37)
[2020-12-24] MEDS: Sodium Chloride 0.9% 1,000 ML IV SCH ×2 (00:27→11:28)
[2020-12-24] MEDS: Cefepime 2 GM in Sodium Chloride 0.9% 50 ML IV SCH (01:21)
[2020-12-24] MEDS: Pantoprazole 40 MG Tab.CR PO SCH ×2 (06:08→06:31)
[2020-12-24 07:52] LABS: ANION GAP 17.8 mmol/L (5-15); CHLORIDE,CL 103 mmol/L (98-107); SODIUM,NA 142 mmol/L (136-145)
[2020-12-24] MEDS ORDERED: Metoprolol Tartrate 50 MG Tab PO SCH (08:00)
[2020-12-24] MEDS: Pregabalin 100 MG Cap PO SCH (08:48)
[2020-12-24] MEDS: tiZANidine 4 MG Tab PO PRN (08:51)
[2020-12-24] MEDS: Apixaban 5 MG Tab PO SCH (08:52)
[2020-12-24] MEDS ORDERED: Hydrochlorothiazide 25 MG Tab PO SCH (09:00)
[2020-12-24] MEDS ORDERED: Isosorbide Mononitrate 30 MG Tab.ER PO SCH (09:00)
[2020-12-24] MEDS ORDERED: Oxybutynin 5 MG Tab.ER PO SCH (09:00)
[2020-12-24] MEDS ORDERED: Lisinopril 20 MG Tab PO SCH (09:00)
[2020-12-24] MEDS ORDERED: predniSONE 10 MG Tab PO SCH (09:00)
[2020-12-24] MEDS ORDERED: DULoxetine 30 MG Cap PO SCH (09:00)
[2020-12-24] MEDS ORDERED: Cefepime 2 GM Vial IVPUSH SCH (10:00)
[2020-12-24] MEDS ORDERED: Nitroglycerin 0.4 MG Tab.SL SL ONE (10:15)
[2020-12-24] MEDS ORDERED: Potassium Chloride 20 MEQ in Premix Bag 1 BAG IV ONE ×3 (10:18→18:00)
--- NOTE | 2020-12-24 10:26 | PCM.PN ---
- General Info Date of Service: 12/24/20 Functional Status: Reports: Tolerating Diet, New Symptoms (ant chest pains past 2 hours per patient report. Also severe '). Denies: Pain Controlled, Ambulating - Review of Systems General: Reports: Appetite HEENT: Reports: No Symptoms Pulmonary: Denies: Shortness of Breath, Cough, Sputum, Hemoptysis Cardiovascular: Reports: Chest Pain (Patient reports past 2 hours having anterior wall chest pain. Also "my feet are killing me"). Denies: Palpitations, Orthopnea, PND, Edema Gastrointestinal: Reports: Melena. Denies: Abdominal Pain, Decreased Appetite, Diarrhea, Nausea, Vomiting Genitourinary: Reports: No Symptoms Musculoskeletal: Reports: Back Pain Skin: Reports: No Symptoms Neurological: Reports: Difficulty Walking. Denies: Confusion - Patient Data Vitals - Most Recent: Last Vital Signs Temp 98.0 F 12/24/20 06:20 Pulse 103 H 12/24/20 08:52 Resp 104 H 12/24/20 06:20 BP 156/77 H 12/24/20 08:52 Pulse Ox 91 L 12/24/20 06:20 Weight - Most Recent: 193 lb 3.2 oz I&O - Last 24 Hours: Intake & Output 12/23/20 12/24/20 12/24/20 22:59 06:59 14:59 Intake Total 1656 Output Total 300 Balance 1356 Lab Results Last 24 Hours: Laboratory Results - last 24 hr 12/23/20 12/23/20 12/23/20 Range/Units 17:20 17:20 17:20 WBC 9.13 (5.00-10.00) 10^3/uL RBC 3.69 L (3.80-5.50) 10^6/uL Hgb 10.4 L (12.0-16.0) g/dL Hct 34.1 L (37.0-47.0) % MCV 92.4 H (82.0-92.0) fL MCH 28.2 (27.0-31.0) pg MCHC 30.5 L (32.0-36.0) g/dL RDW 15.1 H (11.5-14.5) % Plt Count 416 H (150-400) 10^3/uL MPV 9.9 (7.4-10.4) fL Immature Gran % (Auto) 0.2 (0.0-5.0) % Neut % (Auto) 73.9 H (50.0-70.0) % Lymph % (Auto) 14.7 L (20.0-40.0) % [place] % (Auto) 10.4 H (2.0-8.0) % Eos % (Auto) 0.3 L (1.0-3.0) % Baso % (Auto) 0.5 (0.0-1.0) % Neut # (Auto) 6.74 (2.50-7.00) 10^3/uL Lymph # (Auto) 1.34 (1.00-4.00) 10^3/uL [place] # (Auto) 0.95 H (0.10-0.80) 10^3/uL Eos # (Auto) 0.03 L (0.10-0.30) 10^3/uL Baso # (Auto) 0.05 (0.00-0.10) 10^3/uL Immature Gran # (Auto) 0.02 (0.00-0.50) 10^3/uL ESR Sodium 140 (136-145) mmol/L Potassium 3.4 L (3.5-5.1) mmol/L Chloride 100 (98-107) mmol/L Carbon Dioxide 27.8 (21.0-32.0) mmol/L Anion Gap 15.6 H (5-15) mmol/L BUN 12 (7-18) mg/dL Creatinine 0.60 (0.51-1.17) mg/dL Est Cr Clr Drug Dosing 81.80 mL/min Estimated GFR (MDRD) > 60 mL/min Glucose 97 (70-140) mg/dL Lactic Acid 1.2 (0.4-2.0) mmol/L Calcium 9.0 (8.7-10.3) mg/dL Total Bilirubin 0.4 (0.2-1.0) mg/dL AST 20 (15-37) U/L ALT 24 (14-63) U/L Alkaline Phosphatase 150 H (46-116) U/L Troponin I High Sens (0-51.000) pg/mL C-Reactive Protein 9.5 H (0.0-0.9) mg/dL Total Protein 6.9 (6.4-8.2) g/dL Albumin 2.90 L (3.40-5.00) g/dL Lipase 38 L (73-393) U/L 12/23/20 12/23/20 12/24/20 Range/Units 17:20 21:15 07:30 WBC 8.13 (5.00-10.00) 10^3/uL RBC 3.30 L (3.80-5.50) 10^6/uL Hgb 9.3 L (12.0-16.0) g/dL Hct 30.5 L (37.0-47.0) % MCV 92.4 H (82.0-92.0) fL MCH 28.2 (27.0-31.0) pg MCHC 30.5 L (32.0-36.0) g/dL RDW 15.3 H (11.5-14.5) % Plt Count 378 (150-400) 10^3/uL MPV 9.8 (7.4-10.4) fL Immature Gran % (Auto) 0.2 (0.0-5.0) % Neut % (Auto) 64.8 (50.0-70.0) % Lymph % (Auto) 18.8 L (20.0-40.0) % [place] % (Auto) 12.2 H (2.0-8.0) % Eos % (Auto) 3.0 (1.0-3.0) % Baso % (Auto) 1.0 (0.0-1.0) % Neut # (Auto) 5.27 (2.50-7.00) 10^3/uL Lymph # (Auto) 1.53 (1.00-4.00) 10^3/uL [place] # (Auto) 0.99 H (0.10-0.80) 10^3/uL Eos # (Auto) 0.24 (0.10-0.30) 10^3/uL Baso # (Auto) 0.08 (0.00-0.10) 10^3/uL Immature Gran # (Auto) 0.02 (0.00-0.50) 10^3/uL ESR Cancelled Sodium (136-145) mmol/L Potassium (3.5-5.1) mmol/L Chloride (98-107) mmol/L Carbon Dioxide (21.0-32.0) mmol/L Anion Gap (5-15) mmol/L BUN (7-18) mg/dL Creatinine (0.51-1.17) mg/dL Est Cr Clr Drug Dosing mL/min Estimated GFR (MDRD) mL/min Glucose (70-140) mg/dL Lactic Acid (0.4-2.0) mmol/L Calcium (8.7-10.3) mg/dL Total Bilirubin (0.2-1.0) mg/dL AST (15-37) U/L ALT (14-63) U/L Alkaline Phosphatase (46-116) U/L Troponin I High Sens 57.900 H* 67.000 H* (0-51.000) pg/mL C-Reactive Protein (0.0-0.9) mg/dL Total Protein (6.4-8.2) g/dL Albumin (3.40-5.00) g/dL Lipase (73-393) U/L 12/24/20 Range/Units 07:30 WBC (5.00-10.00) 10^3/uL RBC (3.80-5.50) 10^6/uL Hgb (12.0-16.0) g/dL Hct (37.0-47.0) % MCV (82.0-92.0) fL MCH (27.0-31.0) pg MCHC (32.0-36.0) g/dL RDW (11.5-14.5) % Plt Count (150-400) 10^3/uL MPV (7.4-10.4) fL Immature Gran % (Auto) (0.0-5.0) % Neut % (Auto) (50.0-70.0) % Lymph % (Auto) (20.0-40.0) % [place] % (Auto) (2.0-8.0) % Eos % (Auto) (1.0-3.0) % Baso % (Auto) (0.0-1.0) % Neut # (Auto) (2.50-7.00) 10^3/uL Lymph # (Auto) (1.00-4.00) 10^3/uL [place] # (Auto) (0.10-0.80) 10^3/uL Eos # (Auto) (0.10-0.30) 10^3/uL Baso # (Auto) (0.00-0.10) 10^3/uL Immature Gran # (Auto) (0.00-0.50) 10^3/uL ESR Sodium 142 (136-145) mmol/L Potassium 2.9 L (3.5-5.1) mmol/L Chloride 103 (98-107) mmol/L Carbon Dioxide 24.1 (21.0-32.0) mmol/L Anion Gap 17.8 H (5-15) mmol/L BUN 10 (7-18) mg/dL Creatinine 0.51 (0.51-1.17) mg/dL Est Cr Clr Drug Dosing 96.23 mL/min Estimated GFR (MDRD) > 60 mL/min Glucose 78 (70-140) mg/dL Lactic Acid (0.4-2.0) mmol/L Calcium 8.2 L (8.7-10.3) mg/dL Total Bilirubin 0.5 (0.2-1.0) mg/dL AST 19 (15-37) U/L ALT 18 (14-63) U/L Alkaline Phosphatase 123 H (46-116) U/L Troponin I High Sens 64.400 H* (0-51.000) pg/mL C-Reactive Protein 8.0 H (0.0-0.9) mg/dL Total Protein 5.9 L (6.4-8.2) g/dL Albumin 2.42 L (3.40-5.00) g/dL Lipase (73-393) U/L Med Orders - Current: Current Medications Hydrocodone Bitart/Acetaminophen (Acetaminophen/Hydrocodone 325-10 Mg Tab) 1 - 2 tab PO Q4H PRN PRN Reason: Pain Last Admin: 12/24/20 06:08 Dose: 1 tab Documented by: Alprazolam (Alprazolam 0.25 Mg Tab) 1 mg PO BID PRN PRN Reason: Anxiety Apixaban (Apixaban 5 Mg Tab) 5 mg PO BID NNAMDI Last Admin: 12/24/20 08:52 Dose: 5 mg Documented by: Atropine Sulfate (Atropine 0.1 Mg/Ml 10 Ml Syringe) 0 mg IVPUSH ASDIRECTED PRN PRN Reason: Heart. Baclofen (Baclofen 10 Mg Tab) 10 mg PO TID PRN PRN Reason: Muscle Spasm - Painful Cefepime HCl (Cefepime 2 Gm Vial) 2 gm IVPUSH Q8H [facility] Duloxetine HCl (Duloxetine 30 Mg Cap) 30 mg PO DAILY [facility] Last Admin: 12/24/20 08:48 Dose: 30 mg Documented by: Epinephrine HCl (Epinephrine 1:10,000 1 Mg/10 Ml Syringe) 1 mg IVPUSH ASDIRECTED PRN PRN Reason: Heart. Hydrochlorothiazide (Hydrochlorothiazide 25 Mg Tab) 25 mg PO DAILY [facility] Last Admin: 12/24/20 08:53 Dose: 25 mg Documented by: Hydromorphone HCl (Hydromorphone 1 Mg/Ml Syringe) 0.5 - 1 mg IVPUSH Q4H PRN PRN Reason: Pain Last Admin: 12/23/20 21:26 Dose: 0.5 mg Documented by: Sodium Chloride (Normal Saline) 1,000 mls @ 100 mls/hr IV ASDIRECTED [facility] Last Admin: 12/24/20 00:27 Dose: 100 mls/hr Documented by: Isosorbide Mononitrate (Isosorbide Mononitrate 30 Mg Tab.Er) 30 mg PO DAILY [facility] Last Admin: 12/24/20 08:48 Dose: 30 mg Documented by: Lidocaine HCl (Lidocaine 2% 100 Mg/5 Ml Syringe) 0 mg IVPUSH ASDIRECTED PRN PRN Reason: Heart. Lisinopril (Lisinopril 20 Mg Tab) 20 mg PO DAILY [facility] Last Admin: 12/24/20 08:52 Dose: 20 mg Documented by: Metoprolol Tartrate (Metoprolol Tartrate 50 Mg Tab) 50 mg PO BIDMEALS [facility] Last Admin: 12/24/20 08:52 Dose: 50 mg Documented by: Nitroglycerin (Nitroglycerin 0.4 Mg Tab.Sl) 0.4 mg SL ASDIRECTED PRN PRN Reason: Heart. Ondansetron HCl (Ondansetron 4 Mg/2 Ml Sdv) 4 mg IVPUSH Q4H PRN PRN Reason: Nausea/Vomiting Oxybutynin Chloride (Oxybutynin 5 Mg Tab.Er) 10 mg PO DAILY [facility] Last Admin: 12/24/20 08:52 Dose: 10 mg Documented by: Pantoprazole Sodium (Pantoprazole 40 Mg Tab.Cr) 40 mg PO BIDAC [facility] Last Admin: 12/24/20 06:31 Dose: Not Given Documented by: Pramipexole Dihydrochloride (Pramipexole 0.125 Mg Tab) 0.125 mg PO BEDTIME [facility] Last Admin: 12/23/20 20:37 Dose: 0.125 mg Documented by: Prednisone (Prednisone 10 Mg Tab) 10 mg PO DAILY [facility] Last Admin: 12/24/20 08:52 Dose: 10 mg Documented by: Pregabalin (Pregabalin 100 Mg Cap) 100 mg PO BID [facility] Last Admin: 12/24/20 08:48 Dose: 100 mg Documented by: Tizanidine HCl (Tizanidine 4 Mg Tab) 4 mg PO TID PRN PRN Reason: MUSCLE SPASMS Last Admin: 12/24/20 08:51 Dose: 4 mg Documented by: Discontinued Medications Sodium Chloride (Normal Saline) 500 mls @ 999 mls/hr IV .BOLUS ONE Stop: 12/23/20 17:15 Last Admin: 12/23/20 18:09 Dose: Not Given Documented by: Sodium Chloride (Normal Saline) 500 mls @ 999 mls/hr IV BOLUS ONE Stop: 12/23/20 18:02 Last Admin: 12/23/20 17:10 Dose: 999 mls/hr Documented by: Sodium Chloride (Normal Saline) 50 mls @ 200 mls/min IV ONETIME ONE Stop: 12/23/20 18:16 Last Admin: 12/23/20 18:21 Dose: 200 mls/min Documented by: Cefepime HCl 2 gm/ Sodium (Chloride) 50 mls @ 100 mls/hr IV Q8H [facility] Last Admin: 12/24/20 01:21 Dose: 100 mls/hr Documented by: Iopamidol (Iopamidol 755 Mg/Ml 75 Ml Bottle) 75 ml IVPUSH ONETIME ONE Stop: 12/23/20 18:14 Last Admin: 12/23/20 18:20 Dose: 75 ml Documented by: Metoprolol Tartrate (Metoprolol Tartrate 5 Mg/5 Ml Sdv) 10 mg IVPUSH ONETIME ONE Stop: 12/23/20 21:12 Last Admin: 12/23/20 21:37 Dose: Not Given Documented by: Ondansetron HCl (Ondansetron 4 Mg/2 Ml Sdv) 4 mg IVPUSH Q6H PRN PRN Reason: Nausea/Vomiting Last Admin: 12/23/20 19:11 Dose: 4 mg Documented by: - Exam Quality Assessment: DVT Prophylaxis General: Alert, Oriented, Cooperative, No Acute Distress Neck: Supple Lungs: Clear to Auscultation, Normal Respiratory Effort Cardiovascular: Irregular Rhythm GI/Abdominal Exam: Normal Bowel Sounds, Soft Extremities: No Pedal Edema Skin: Warm, Dry, Intact Psy/Mental Status: Alert, Normal Affect, Anxious - Patient Data Lab Results Last 24 hrs: Laboratory Results - last 24 hr 12/23/20 12/23/20 12/23/20 Range/Units 17:20 17:20 17:20 WBC 9.13 (5.00-10.00) 10^3/uL RBC 3.69 L (3.80-5.50) 10^6/uL Hgb 10.4 L (12.0-16.0) g/dL Hct 34.1 L (37.0-47.0) % MCV 92.4 H (82.0-92.0) fL MCH 28.2 (27.0-31.0) pg MCHC 30.5 L (32.0-36.0) g/dL RDW 15.1 H (11.5-14.5) % Plt Count 416 H (150-400) 10^3/uL MPV 9.9 (7.4-10.4) fL Immature Gran % (Auto) 0.2 (0.0-5.0) % Neut % (Auto) 73.9 H (50.0-70.0) % Lymph % (Auto) 14.7 L (20.0-40.0) % [place] % (Auto) 10.4 H (2.0-8.0) % Eos % (Auto) 0.3 L (1.0-3.0) % Baso % (Auto) 0.5 (0.0-1.0) % Neut # (Auto) 6.74 (2.50-7.00) 10^3/uL Lymph # (Auto) 1.34 (1.00-4.00) 10^3/uL [place] # (Auto) 0.95 H (0.10-0.80) 10^3/uL Eos # (Auto) 0.03 L (0.10-0.30) 10^3/uL Baso # (Auto) 0.05 (0.00-0.10) 10^3/uL Immature Gran # (Auto) 0.02 (0.00-0.50) 10^3/uL ESR Sodium 140 (136-145) mmol/L Potassium 3.4 L (3.5-5.1) mmol/L Chloride 100 (98-107) mmol/L Carbon Dioxide 27.8 (21.0-32.0) mmol/L Anion Gap 15.6 H (5-15) mmol/L BUN 12 (7-18) mg/dL Creatinine 0.60 (0.51-1.17) mg/dL Est Cr Clr Drug Dosing 81.80 mL/min Estimated GFR (MDRD) > 60 mL/min Glucose 97 (70-140) mg/dL Lactic Acid 1.2 (0.4-2.0) mmol/L Calcium 9.0 (8.7-10.3) mg/dL Total Bilirubin 0.4 (0.2-1.0) mg/dL AST 20 (15-37) U/L ALT 24 (14-63) U/L Alkaline Phosphatase 150 H (46-116) U/L Troponin I High Sens (0-51.000) pg/mL C-Reactive Protein 9.5 H (0.0-0.9) mg/dL Total Protein 6.9 (6.4-8.2) g/dL Albumin 2.90 L (3.40-5.00) g/dL Lipase 38 L (73-393) U/L 12/23/20 12/23/20 12/24/20 Range/Units 17:20 21:15 07:30 WBC 8.13 (5.00-10.00) 10^3/uL RBC 3.30 L (3.80-5.50) 10^6/uL Hgb 9.3 L (12.0-16.0) g/dL Hct 30.5 L (37.0-47.0) % MCV 92.4 H (82.0-92.0) fL MCH 28.2 (27.0-31.0) pg MCHC 30.5 L (32.0-36.0) g/dL RDW 15.3 H (11.5-14.5) % Plt Count 378 (150-400) 10^3/uL MPV 9.8 (7.4-10.4) fL Immature Gran % (Auto) 0.2 (0.0-5.0) % Neut % (Auto) 64.8 (50.0-70.0) % Lymph % (Auto) 18.8 L (20.0-40.0) % [place] % (Auto) 12.2 H (2.0-8.0) % Eos % (Auto) 3.0 (1.0-3.0) % Baso % (Auto) 1.0 (0.0-1.0) % Neut # (Auto) 5.27 (2.50-7.00) 10^3/uL Lymph # (Auto) 1.53 (1.00-4.00) 10^3/uL [place] # (Auto) 0.99 H (0.10-0.80) 10^3/uL Eos # (Auto) 0.24 (0.10-0.30) 10^3/uL Baso # (Auto) 0.08 (0.00-0.10) 10^3/uL Immature Gran # (Auto) 0.02 (0.00-0.50) 10^3/uL ESR Cancelled Sodium (136-145) mmol/L Potassium (3.5-5.1) mmol/L Chloride (98-107) mmol/L Carbon Dioxide (21.0-32.0) mmol/L Anion Gap (5-15) mmol/L BUN (7-18) mg/dL Creatinine (0.51-1.17) mg/dL Est Cr Clr Drug Dosing mL/min Estimated GFR (MDRD) mL/min Glucose (70-140) mg/dL Lactic Acid (0.4-2.0) mmol/L Calcium (8.7-10.3) mg/dL Total Bilirubin (0.2-1.0) mg/dL AST (15-37) U/L ALT (14-63) U/L Alkaline Phosphatase (46-116) U/L Troponin I High Sens 57.900 H* 67.000 H* (0-51.000) pg/mL C-Reactive Protein (0.0-0.9) mg/dL Total Protein (6.4-8.2) g/dL Albumin (3.40-5.00) g/dL Lipase (73-393) U/L 12/24/20 Range/Units 07:30 WBC (5.00-10.00) 10^3/uL RBC (3.80-5.50) 10^6/uL Hgb (12.0-16.0) g/dL Hct (37.0-47.0) % MCV (82.0-92.0) fL MCH (27.0-31.0) pg MCHC (32.0-36.0) g/dL RDW (11.5-14.5) % Plt Count (150-400) 10^3/uL MPV (7.4-10.4) fL Immature Gran % (Auto) (0.0-5.0) % Neut % (Auto) (50.0-70.0) % Lymph % (Auto) (20.0-40.0) % [place] % (Auto) (2.0-8.0) % Eos % (Auto) (1.0-3.0) % Baso % (Auto) (0.0-1.0) % Neut # (Auto) (2.50-7.00) 10^3/uL Lymph # (Auto) (1.00-4.00) 10^3/uL [place] # (Auto) (0.10-0.80) 10^3/uL Eos # (Auto) (0.10-0.30) 10^3/uL Baso # (Auto) (0.00-0.10) 10^3/uL Immature Gran # (Auto) (0.00-0.50) 10^3/uL ESR Sodium 142 (136-145) mmol/L Potassium 2.9 L (3.5-5.1) mmol/L Chloride 103 (98-107) mmol/L Carbon Dioxide 24.1 (21.0-32.0) mmol/L Anion Gap 17.8 H (5-15) mmol/L BUN 10 (7-18) mg/dL Creatinine 0.51 (0.51-1.17) mg/dL Est Cr Clr Drug Dosing 96.23 mL/min Estimated GFR (MDRD) > 60 mL/min Glucose 78 (70-140) mg/dL Lactic Acid (0.4-2.0) mmol/L Calcium 8.2 L (8.7-10.3) mg/dL Total Bilirubin 0.5 (0.2-1.0) mg/dL AST 19 (15-37) U/L ALT 18 (14-63) U/L Alkaline Phosphatase 123 H (46-116) U/L Troponin I High Sens 64.400 H* (0-51.000) pg/mL C-Reactive Protein 8.0 H (0.0-0.9) mg/dL Total Protein 5.9 L (6.4-8.2) g/dL Albumin 2.42 L (3.40-5.00) g/dL Lipase (73-393) U/L Result Diagrams: 12/24/20 07:30 12/24/20 07:30 Sepsis Event Note - Evaluation Sepsis Screening Result: No Definite Risk - Focused Exam Vital Signs: Vital Signs Temp Temp Pulse Pulse Resp BP BP 12/24/20 08:52 103 H 156/77 H 12/24/20 08:48 156/77 H 12/24/20 06:20 98.0 F 104 H 104 H 154/74 H 12/24/20 03:00 98.1 F 97 18 122/69 12/23/20 23:00 98.5 F 86 18 123/67 Pulse Ox 12/24/20 08:52 12/24/20 08:48 12/24/20 06:20 91 L 12/24/20 03:00 93 L 12/23/20 23:00 94 L - Problem List Review Problem List Initiated/Reviewed/Updated: Yes - My Orders Last 24 Hours: My Active Orders 12/24/20 02:19 Communication Order [RC] DAILY - Plan Plan:: Please use this progress note as a discharge summary as patient was transferred to tertiary care center the day I first saw her HPI summary: Kimberly is a 65y F patient who presents to the [facility] today with c/o intractable nausea and vomiting with more than ten episodes reported today after being seen in the [facility] ER last night for complaints of back pain. Labs last night in ER that were overall unremarkable, mild hypokalemia with K 3.4. CT head was completed due to a slight change in mentation without acute process, chronic small vessel ischemia noted. Patient was seen by [facility] home health today which prompted the clinic visit as no nausea medication was prescribed last night in ER. Of note, patient was discharged from [facility] on 12/17/20 where she was under the care of [facility] providers. Patient was in swingbed from 12/04/20 to 12/17/20 for s/p laminectomy for an L1 fracture by Dr oNlasco at [facility] in [place], [place]. This was following a compression fracture with kyphoplasty. Patient developed significant back pain in the post-operative period that was severe and non-radiating and she underwent a surgical debridement during which tunneling was identified with exposed bone. Patient was then instrumented from L4 to L10. She developed a post-op pseudomonal infection. She also developed a DVT and was started on xarelto initially. Patient has a PICC line that does not draw blood, this has been accessed at home to administer cefepime TID on an outpatient basis since going home last week. Patient was to have five more weeks of cefepime for the pseudomonal infection at the time of discharge on 12/17/20 per infectious disease. __ Hospital course: 12/23/20: Nausea improved after IM zofran in clinic. Patient afebrile, mildly tachycardic HR 106, BP elevated upon admission. Patient is on 3 BP meds at home, she is unsure if she took her medications today or if she was able to keep them down. WBC 9.13, Neutrophils 73.9%, lactic acid 1.2. CMP indicated K 3.4, Alk phos 150, albumin low at 2.90. CRP elevated 9.5. Lipase 38. EKG obtained: sinus tachycardia with PAC's, possible left atrial enlargement, inferior infarct, age undetermined, T wave abnormality. Troponin slightly elevated at 57.900. CT abdomen pelvis without acute process. Will advance diet as tolerated. 12/24/2020; patient states feeling better however has been having chest pains past 2 hours before rounds, repeat ECG demonstrates uniform 1 mm T-wave inversion V- leads with good R-R progression, no ST elevation, doubtful Wellens as all V- leads appear similar depth. Questionable ASA hx given stent/hx of NE; Nitro x1 given. Suspect demand ischemia and should be studied stress test. Hospitalization problems --NSTE ACS; doubtful Wellens as all V-leads appear similar depth PAULINA Risk 4-5, significant risk factors HTN, obesity, ?ASA use, hx of NE/CAD (with stent), HLD, + Fam hx. 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 # RLS - Pramipexole 0.125 mg PO qhs # OAB - takes Oxybutynin 10 mg PO daily Hospitalization details: # FEN: nothing by mouth due to transfer Disposition/overall plan Suspect demand ischemia and should be studied stress test. Insulted with cardiology and hospitalists and they agreed for transfer and likely will receive stress test. Patient was made nothing by mouth, she will be transferred to [facility] via [facility] due to the patient will require IV potassium and cardiac monitoring Please use this progress note as a discharge summary as patient was transferred to tertiary care center the day I first saw her
[2020-12-24] MEDS ORDERED: Potassium Bicarbonate 25 MEQ Tab.EFF PO SCH (11:30)
== END 2020-12-24 12:30 ==
LOC: KA.MS 16:25
PROVIDERS: ADMIT Nurse Practitioner Family; ATTEND Family Medicine
DX: R11.2 Nausea with vomiting, unspecified (principal); E78.00 Pure hypercholesterolemia, unspecified; I10 Essential (primary) hypertension; I25.2 Old myocardial infarction; J44.9 Chronic obstructive pulmonary disease, unspecified; E87.6 Hypokalemia; R10.9 Unspecified abdominal pain; R77.8 Other specified abnormalities of plasma proteins; R19.7 Diarrhea, unspecified; E88.09 Other disorders of plasma-protein metabolism, not elsewhere classified; I25.10 Atherosclerotic heart disease of native coronary artery without angina pectoris; D64.9 Anemia, unspecified; N32.81 Overactive bladder; G25.81 Restless legs syndrome; Z88.8 Allergy status to other drugs, medicaments and biological substances; Z88.0 Allergy status to penicillin; Z79.899 Other long term (current) drug therapy; Z98.890 Other specified postprocedural states
CPT/HCPCS: 36415; 74177; 80053; 81001; 83605; 83690; 84484; 85025; 85652; 86140; 96365; 96366; 96367; 96375; 96376; A9270-GY; G0378; J0692; J1170; J2405; J3480; J3490; J7030; J7512; Q9967

== ENCOUNTER 2021-03-24 14:35 | Inpatient (IN) | payer BC ==
[2021-03-24] MEDS ORDERED: Sodium Chloride 0.9% 10 ML Syringe FLUSH PRN (15:21)
[2021-03-24] MEDS ORDERED: Sodium Chloride 0.9% 1,000 ML IV SCH (16:00)
[2021-03-24] MEDS: Ondansetron 4 MG/2 ML SDV IV PRN (17:25)
[2021-03-24] MEDS: Sodium Chloride 0.9% 1,000 ML IV SCH ×2 (17:43→18:45)
[2021-03-24] MEDS ORDERED: Nitroglycerin 0.4 MG Tab.SL SL PRN (18:04)
--- NOTE | 2021-03-24 18:36 | CT ---
[id number] CT/CT Abdomen Pelvis WO IV EXAM: CT Abdomen Pelvis WO IV CLINICAL DATA: ORLIN, DEHYDRATION, NAUSEA, VOMITING. COMPARISON STUDY: December 23, 2020. FINDINGS: Findings are within limitation of streak artifact from extensive spinal fusion hardware. Liver, spleen, pancreas, and adrenal glands are unremarkable. Cholecystectomy. No obstructive uropathy. Punctate nonobstructing left renal calculus seen in interpolar calyx. No ureteral calculi. Urinary bladder is unremarkable. No bowel obstruction or inflammation. No lymphadenopathy, free fluid, or pneumoperitoneum. IMPRESSION: No acute findings in the abdomen or pelvis. Other findings are described above. Juarez Low MD 03/24/21 [id number] Thank you for allowing us to participate in the care of your patient.
[2021-03-24] MEDS: tiZANidine 2 MG Tab PO PRN (18:51)
[2021-03-24] MEDS: ALPRAZolam 0.25 MG Tab PO SCH (20:54)
[2021-03-24] MEDS: Pramipexole 0.125 MG Tab PO SCH (20:54)
[2021-03-25] MEDS: Sodium Chloride 0.9% 1,000 ML IV SCH ×3 (01:13→18:32)
[2021-03-25] MEDS: tiZANidine 2 MG Tab PO PRN ×3 (05:00→19:36)
[2021-03-25 08:08] LABS: CHLORIDE,CL 105 mmol/L (98-107); SODIUM,NA 139 mmol/L (136-145)
[2021-03-25] MEDS: DULoxetine 30 MG Cap PO SCH (09:16)
[2021-03-25] MEDS: Isosorbide Mononitrate 30 MG Tab.ER PO SCH (09:16)
--- NOTE | 2021-03-25 10:55 | PCM.PN ---
- General Info Date of Service: 03/25/21 Functional Status: Reports: Pain Controlled, Urinating, Incentive Spirometry (1000ml). Denies: New Symptoms - Review of Systems General: Reports: Weakness, Fatigue. Denies: Fever, Chills HEENT: Reports: No Symptoms Pulmonary: Reports: No Symptoms Cardiovascular: Reports: Lightheadedness. Denies: Edema Gastrointestinal: Reports: Abdominal Pain (on palpation or if she "moves wrong" to the LUQ), Decreased Appetite, Diarrhea, Nausea. Denies: Vomiting Genitourinary: Reports: No Symptoms Musculoskeletal: Reports: No Symptoms Skin: Reports: No Symptoms Neurological: Reports: No Symptoms. Denies: Dizziness Psychiatric: Reports: No Symptoms - Patient Data Vitals - Most Recent: Last Vital Signs Temp 97.6 F 03/25/21 07:00 Pulse 103 H 03/25/21 07:00 Resp 20 03/25/21 07:00 BP 132/69 03/25/21 09:16 Pulse Ox 92 L 03/25/21 07:00 Weight - Most Recent: 189 lb 12.8 oz I&O - Last 24 Hours: Intake & Output 03/24/21 03/25/21 03/25/21 22:59 06:59 14:59 Intake Total 240 2991 Output Total 640 300 Balance -400 2691 Lab Results Last 24 Hours: Laboratory Results - last 24 hr 03/24/21 03/24/21 03/25/21 Range/Units 15:21 16:30 07:12 WBC 8.37 (5.00-10.00) 10^3/uL RBC 4.04 (3.80-5.50) 10^6/uL Hgb 11.8 L D (12.0-16.0) g/dL Hct 37.8 (37.0-47.0) % MCV 93.6 H (82.0-92.0) fL MCH 29.2 (27.0-31.0) pg MCHC 31.2 L (32.0-36.0) g/dL RDW 14.5 (11.5-14.5) % Plt Count 269 D (150-400) 10^3/uL MPV 9.6 (7.4-10.4) fL Immature Gran % (Auto) 0.2 (0.0-5.0) % Neut % (Auto) 61.0 (50.0-70.0) % Lymph % (Auto) 24.1 (20.0-40.0) % [place] % (Auto) 11.4 H (2.0-8.0) % Eos % (Auto) 2.7 (1.0-3.0) % Baso % (Auto) 0.6 (0.0-1.0) % Neut # (Auto) 5.10 (2.50-7.00) 10^3/uL Lymph # (Auto) 2.02 (1.00-4.00) 10^3/uL [place] # (Auto) 0.95 H (0.10-0.80) 10^3/uL Eos # (Auto) 0.23 (0.10-0.30) 10^3/uL Baso # (Auto) 0.05 (0.00-0.10) 10^3/uL Immature Gran # (Auto) 0.02 (0.00-0.50) 10^3/uL Sodium (136-145) mmol/L Potassium (3.5-5.1) mmol/L Chloride (98-107) mmol/L Carbon Dioxide (21.0-32.0) mmol/L Anion Gap (5-15) mmol/L BUN (7-18) mg/dL Creatinine (0.51-1.17) mg/dL Est Cr Clr Drug Dosing mL/min Estimated GFR (MDRD) mL/min Glucose (70-140) mg/dL Lactic Acid 1.9 (0.4-2.0) mmol/L Calcium (8.7-10.3) mg/dL Phosphorus (2.6-4.7) mg/dL Magnesium (1.8-2.4) mg/dL Total Bilirubin (0.2-1.0) mg/dL AST (15-37) U/L ALT (14-63) U/L Alkaline Phosphatase (46-116) U/L Total Protein (6.4-8.2) g/dL Albumin (3.40-5.00) g/dL Specimen Type Urincc Urine Color Yellow (YELLOW) Urine Appearance Clear (CLEAR) Urine pH 5.0 (5.0-9.0) Ur Specific [place] 1.020 (1.005-1.030) Urine Protein Negative (NEGATIVE) mg/dL Urine Glucose (UA) Negative (NEGATIVE) mg/dL Urine Ketones Negative (NEGATIVE) mg/dL Urine Occult Blood Negative (NEGATIVE) Urine Nitrite Negative (NEGATIVE) Urine Bilirubin Negative (NEGATIVE) Urine Urobilinogen 0.2 (0.2-1.0) E.U./dL Ur Leukocyte Esterase Trace H (NEGATIVE) Urine RBC 0-5 (0-5) /HPF Urine WBC 10-20 H (0-5) /HPF Ur Epithelial Cells Moderate H /LPF Other Crystals Moderate /HPF Urine Bacteria Few (NONE TO FEW) /HPF 03/25/21 Range/Units 07:12 WBC (5.00-10.00) 10^3/uL RBC (3.80-5.50) 10^6/uL Hgb (12.0-16.0) g/dL Hct (37.0-47.0) % MCV (82.0-92.0) fL MCH (27.0-31.0) pg MCHC (32.0-36.0) g/dL RDW (11.5-14.5) % Plt Count (150-400) 10^3/uL MPV (7.4-10.4) fL Immature Gran % (Auto) (0.0-5.0) % Neut % (Auto) (50.0-70.0) % Lymph % (Auto) (20.0-40.0) % [place] % (Auto) (2.0-8.0) % Eos % (Auto) (1.0-3.0) % Baso % (Auto) (0.0-1.0) % Neut # (Auto) (2.50-7.00) 10^3/uL Lymph # (Auto) (1.00-4.00) 10^3/uL [place] # (Auto) (0.10-0.80) 10^3/uL Eos # (Auto) (0.10-0.30) 10^3/uL Baso # (Auto) (0.00-0.10) 10^3/uL Immature Gran # (Auto) (0.00-0.50) 10^3/uL Sodium 139 (136-145) mmol/L Potassium 3.4 L (3.5-5.1) mmol/L Chloride 105 (98-107) mmol/L Carbon Dioxide 25.4 (21.0-32.0) mmol/L Anion Gap 12.0 (5-15) mmol/L BUN 15 (7-18) mg/dL Creatinine 0.82 (0.51-1.17) mg/dL Est Cr Clr Drug Dosing 66.14 mL/min Estimated GFR (MDRD) > 60 mL/min Glucose 94 (70-140) mg/dL Lactic Acid (0.4-2.0) mmol/L Calcium 8.4 L (8.7-10.3) mg/dL Phosphorus 3.9 (2.6-4.7) mg/dL Magnesium 1.5 L (1.8-2.4) mg/dL Total Bilirubin 0.5 (0.2-1.0) mg/dL AST 33 (15-37) U/L ALT 60 (14-63) U/L Alkaline Phosphatase 150 H (46-116) U/L Total Protein 5.8 L (6.4-8.2) g/dL Albumin 2.99 L (3.40-5.00) g/dL Specimen Type Urine Color (YELLOW) Urine Appearance (CLEAR) Urine pH (5.0-9.0) Ur Specific [place] (1.005-1.030) Urine Protein (NEGATIVE) mg/dL Urine Glucose (UA) (NEGATIVE) mg/dL Urine Ketones (NEGATIVE) mg/dL Urine Occult Blood (NEGATIVE) Urine Nitrite (NEGATIVE) Urine Bilirubin (NEGATIVE) Urine Urobilinogen (0.2-1.0) E.U./dL Ur Leukocyte Esterase (NEGATIVE) Urine RBC (0-5) /HPF Urine WBC (0-5) /HPF Ur Epithelial Cells /LPF Other Crystals /HPF Urine Bacteria (NONE TO FEW) /HPF Med Orders - Current: Current Medications Alprazolam (Alprazolam 0.25 Mg Tab) 1 mg PO BEDTIME [facility] Last Admin: 03/24/21 20:54 Dose: 1 mg Documented by: Duloxetine HCl (Duloxetine 30 Mg Cap) 30 mg PO DAILY [facility] Last Admin: 03/25/21 09:16 Dose: 30 mg Documented by: Sodium Chloride (Normal Saline) 1,000 mls @ 999 mls/hr IV .BOLUS [facility] Last Admin: 03/24/21 17:43 Dose: 999 mls/hr Documented by: Sodium Chloride (Normal Saline) 1,000 mls @ 75 mls/hr IV ASDIRECTED [facility] Isosorbide Mononitrate (Isosorbide Mononitrate 30 Mg Tab.Er) 30 mg PO DAILY [facility] Last Admin: 03/25/21 09:16 Dose: 30 mg Documented by: Nitroglycerin (Nitroglycerin 0.4 Mg Tab.Sl) 0.4 mg SL ASDIRECTED PRN PRN Reason: Chest Pain Non-Formulary Medication (Apremilast [Otezla]) 30 mg PO BID [facility] Ondansetron HCl (Ondansetron 4 Mg/2 Ml Sdv) 4 mg IV Q6H PRN PRN Reason: Nausea/Vomiting Last Admin: 03/24/21 17:25 Dose: 4 mg Documented by: Pramipexole Dihydrochloride (Pramipexole 0.125 Mg Tab) 0.125 mg PO BEDTIME [facility] Last Admin: 03/24/21 20:54 Dose: 0.125 mg Documented by: Sodium Chloride (Sodium Chloride 0.9% 10 Ml Syringe) 10 ml FLUSH Q8HR PRN PRN Reason: keep vein open Tizanidine HCl (Tizanidine 2 Mg Tab) 4 mg PO Q4H PRN PRN Reason: MUSCLE SPASMS Last Admin: 03/25/21 09:18 Dose: 4 mg Documented by: Discontinued Medications Sodium Chloride (Normal Saline) 1,000 mls @ 150 mls/hr IV ASDIRECTED [facility] Last Admin: 03/25/21 08:32 Dose: 150 mls/hr Documented by: - Exam Quality Assessment: No: Supplemental Oxygen General: Alert, Oriented, Cooperative, No Acute Distress HEENT: Pupils Equal, Pupils Reactive, Mucous Membr. Moist/[place] Neck: Supple, Trachea Midline Lungs: Clear to Auscultation, Decreased Breath Sounds Cardiovascular: Regular Rate, Regular Rhythm, No Murmurs GI/Abdominal Exam: Normal Bowel Sounds, Soft, No Distention, Tender (to LUQ on palpation) (Female) Exam: Deferred Back Exam: Normal Inspection, Full Range of Motion Extremities: Normal Inspection, Normal Range of Motion, Non-Tender, No Pedal Edema, Normal Capillary Refill Peripheral Pulses: 2+: Dorsalis Pedis (L), Dorsalis Pedis (R) Skin: Warm, Dry, Intact Neurological: No New Focal Deficit Psy/Mental Status: Alert, Normal Affect, Normal Mood - Patient Data Lab Results Last 24 hrs: Laboratory Results - last 24 hr 03/24/21 03/24/21 03/25/21 Range/Units 15:21 16:30 07:12 WBC 8.37 (5.00-10.00) 10^3/uL RBC 4.04 (3.80-5.50) 10^6/uL Hgb 11.8 L D (12.0-16.0) g/dL Hct 37.8 (37.0-47.0) % MCV 93.6 H (82.0-92.0) fL MCH 29.2 (27.0-31.0) pg MCHC 31.2 L (32.0-36.0) g/dL RDW 14.5 (11.5-14.5) % Plt Count 269 D (150-400) 10^3/uL MPV 9.6 (7.4-10.4) fL Immature Gran % (Auto) 0.2 (0.0-5.0) % Neut % (Auto) 61.0 (50.0-70.0) % Lymph % (Auto) 24.1 (20.0-40.0) % [place] % (Auto) 11.4 H (2.0-8.0) % Eos % (Auto) 2.7 (1.0-3.0) % Baso % (Auto) 0.6 (0.0-1.0) % Neut # (Auto) 5.10 (2.50-7.00) 10^3/uL Lymph # (Auto) 2.02 (1.00-4.00) 10^3/uL [place] # (Auto) 0.95 H (0.10-0.80) 10^3/uL Eos # (Auto) 0.23 (0.10-0.30) 10^3/uL Baso # (Auto) 0.05 (0.00-0.10) 10^3/uL Immature Gran # (Auto) 0.02 (0.00-0.50) 10^3/uL Sodium (136-145) mmol/L Potassium (3.5-5.1) mmol/L Chloride (98-107) mmol/L Carbon Dioxide (21.0-32.0) mmol/L Anion Gap (5-15) mmol/L BUN (7-18) mg/dL Creatinine (0.51-1.17) mg/dL Est Cr Clr Drug Dosing mL/min Estimated GFR (MDRD) mL/min Glucose (70-140) mg/dL Lactic Acid 1.9 (0.4-2.0) mmol/L Calcium (8.7-10.3) mg/dL Phosphorus (2.6-4.7) mg/dL Magnesium (1.8-2.4) mg/dL Total Bilirubin (0.2-1.0) mg/dL AST (15-37) U/L ALT (14-63) U/L Alkaline Phosphatase (46-116) U/L Total Protein (6.4-8.2) g/dL Albumin (3.40-5.00) g/dL Specimen Type Urincc Urine Color Yellow (YELLOW) Urine Appearance Clear (CLEAR) Urine pH 5.0 (5.0-9.0) Ur Specific [place] 1.020 (1.005-1.030) Urine Protein Negative (NEGATIVE) mg/dL Urine Glucose (UA) Negative (NEGATIVE) mg/dL Urine Ketones Negative (NEGATIVE) mg/dL Urine Occult Blood Negative (NEGATIVE) Urine Nitrite Negative (NEGATIVE) Urine Bilirubin Negative (NEGATIVE) Urine Urobilinogen 0.2 (0.2-1.0) E.U./dL Ur Leukocyte Esterase Trace H (NEGATIVE) Urine RBC 0-5 (0-5) /HPF Urine WBC 10-20 H (0-5) /HPF Ur Epithelial Cells Moderate H /LPF Other Crystals Moderate /HPF Urine Bacteria Few (NONE TO FEW) /HPF 03/25/21 Range/Units 07:12 WBC (5.00-10.00) 10^3/uL RBC (3.80-5.50) 10^6/uL Hgb (12.0-16.0) g/dL Hct (37.0-47.0) % MCV (82.0-92.0) fL MCH (27.0-31.0) pg MCHC (32.0-36.0) g/dL RDW (11.5-14.5) % Plt Count (150-400) 10^3/uL MPV (7.4-10.4) fL Immature Gran % (Auto) (0.0-5.0) % Neut % (Auto) (50.0-70.0) % Lymph % (Auto) (20.0-40.0) % [place] % (Auto) (2.0-8.0) % Eos % (Auto) (1.0-3.0) % Baso % (Auto) (0.0-1.0) % Neut # (Auto) (2.50-7.00) 10^3/uL Lymph # (Auto) (1.00-4.00) 10^3/uL [place] # (Auto) (0.10-0.80) 10^3/uL Eos # (Auto) (0.10-0.30) 10^3/uL Baso # (Auto) (0.00-0.10) 10^3/uL Immature Gran # (Auto) (0.00-0.50) 10^3/uL Sodium 139 (136-145) mmol/L Potassium 3.4 L (3.5-5.1) mmol/L Chloride 105 (98-107) mmol/L Carbon Dioxide 25.4 (21.0-32.0) mmol/L Anion Gap 12.0 (5-15) mmol/L BUN 15 (7-18) mg/dL Creatinine 0.82 (0.51-1.17) mg/dL Est Cr Clr Drug Dosing 66.14 mL/min Estimated GFR (MDRD) > 60 mL/min Glucose 94 (70-140) mg/dL Lactic Acid (0.4-2.0) mmol/L Calcium 8.4 L (8.7-10.3) mg/dL Phosphorus 3.9 (2.6-4.7) mg/dL Magnesium 1.5 L (1.8-2.4) mg/dL Total Bilirubin 0.5 (0.2-1.0) mg/dL AST 33 (15-37) U/L ALT 60 (14-63) U/L Alkaline Phosphatase 150 H (46-116) U/L Total Protein 5.8 L (6.4-8.2) g/dL Albumin 2.99 L (3.40-5.00) g/dL Specimen Type Urine Color (YELLOW) Urine Appearance (CLEAR) Urine pH (5.0-9.0) Ur Specific [place] (1.005-1.030) Urine Protein (NEGATIVE) mg/dL Urine Glucose (UA) (NEGATIVE) mg/dL Urine Ketones (NEGATIVE) mg/dL Urine Occult Blood (NEGATIVE) Urine Nitrite (NEGATIVE) Urine Bilirubin (NEGATIVE) Urine Urobilinogen (0.2-1.0) E.U./dL Ur Leukocyte Esterase (NEGATIVE) Urine RBC (0-5) /HPF Urine WBC (0-5) /HPF Ur Epithelial Cells /LPF Other Crystals /HPF Urine Bacteria (NONE TO FEW) /HPF Result Diagrams: 03/26/21 07:00 03/26/21 07:00 Sepsis Event Note - Evaluation Sepsis Screening Result: No Definite Risk - Focused Exam Vital Signs: Vital Signs Temp Pulse Resp BP BP Pulse Ox 03/25/21 09:16 132/69 03/25/21 07:00 97.6 F 103 H 20 122/61 92 L 03/25/21 03:00 97.3 F 92 16 113/61 90 L - Problem List Review Problem List Initiated/Reviewed/Updated: Yes - My Orders Last 24 Hours: My Active Orders 03/24/21 15:21 Patient Status [ADT] Routine Oxygen Therapy [RC] .PRN Up With Assistance [RC] ASDIRECTED VTE/DVT Education [RC] DAILY Vital Signs [RC] ,,,,, Ondansetron [Zofran] 4 mg IV Q6H PRN Sodium Chloride 0.9% [Saline Flush] 10 ml FLUSH Q8HR PRN Blood Culture x2 Reflex Set [OM.PC] Stat Peripheral IV Insertion Adult [OM.PC] Routine Resuscitation Status Routine 03/24/21 15:23 Cardiac Monitoring [RC] 03,07,,,,23 Intake and Output [RC] 1400,2200,0600 03/24/21 15:24 Peripheral IV Care [RC] 03/24/21 15:26 CULTURE BLOOD [BC] Stat CULTURE BLOOD [BC] Stat 03/24/21 16:00 Sodium Chloride 0.9% [Normal Saline] 1,000 ml IV .BOLUS 03/25/21 09:54 CULTURE URINE [RM] Routine 03/25/21 10:00 Sodium Chloride 0.9% [Normal Saline] 1,000 ml IV ASDIRECTED - Plan Plan:: HPI summary: Kimberly is a 65yF patient admitted directly from the [facility] due to concerns of abdominal pain, nausea, hypotension and ORLIN as well as possible sepsis. She c/o increased abdominal pain x 1 week and associated nausea. She admitted to not drinking enough fluids for the past three days and had onset of diarrhea this morning. She also c/o dizziness and lightheadedness. She has continued to take her blood pressure medications of lisinopril and metoprolol despite decreased fluid intake and states she has urinated less and her urine has been rather dark in color. Her mouth has been rather dry. BP in clinic was 70/50 with repeat of 85/60, HR 90 with beta markell on board. Creatinine 1.85 with GFR 27, no known CKD, Phos 5.1. AST, ALT and alk phos slightly elevated. WBC 12.4, no neutrophilia suggestive of bacterial infection. Patient admitted to inpatient status for IV fluids and monitoring of labs. Hospital course: 03/25/21: Patient complains of nausea this morning. Reports two liquid stools this morning. She remains somewhat lightheaded, denies dizziness. Renal indices improved with IV fluids overnight. LFT's normalized. Blood pressure normalized. CT abdomen pelvis unremarkable. Repeat labs in am: CBC, CMP, Mg, Phos, CRP. Hospitalization problems and plan: # ORLIN; improving. BUN 15, Creatinine 0.82, GFR > 60 # R/O sepsis - lactic acid 1.9 upon admission, procalcitonin 0.09 at [facility] # Hypotension # Hyperphosphatemia; 5.1 in clinic, normalized to 3.9 morning after admission # Elevated CRP 57.4 - Urine culture pending - Blood cultures pending - Restarted home prednisone today 5mg PO daily - IV fluids decreased to 75ml/hr today #Left upper quadrant abdominal pain - CT abdomen pelvis was negative. Lipase normal at [facility] prior to admission. #Diarrhea, unspecified type #Non-intractable vomiting, presence of nausea not specified, unspecified vomiting type #Fatigue, unspecified type # Elevated LFT's - improved this morning AST 30, ALT 60 # Elevated alkaline phosphatase - improved this morning to 150 - Zofran 4mg IV Q6H PRN nausea # Hypokalemia; 3.4 - KDur 20 mEq today - Repeat CMP in am # Hypomagensemia; 1.5 today - Continue Mg oxide 500mg PO daily upon discharge home Chronic, stable conditions: # Hospitalization details: # FEN: NS @ 75ml/hr, K 3.4, Mg 1.5 PO supplementation, soft, bland diet as tolerated # PPX: None. # Code status: FULL CODE # Emergency contact: Yovany [phone] # Disposition: Will plan to discharge patient home today as vitals and labs have normalized, no further nausea. Diarrhea improved with immodium. Will send Rx for ODT zofran, immodium and magnesium oxide 500mg PO daily. Plan to follow-up on 04/06/21 at [facility] per myself or sooner if patient has concerns.
[2021-03-25] MEDS: Ondansetron 4 MG/2 ML SDV IV PRN (11:05)
[2021-03-25] MEDS ORDERED: Potassium Chloride 10 MEQ Tab.ER PO ONE (11:11)
[2021-03-25] MEDS: Magnesium Oxide 500 MG Tab PO SCH (11:32)
[2021-03-25] MEDS ORDERED: Diatrizoate Meglumine/Diatrizoate Sodium 37% 30 ML Bottle PO ONE (12:42)
[2021-03-25] MEDS ORDERED: Acetaminophen 325 MG Tab PO PRN (13:29)
[2021-03-25] MEDS ORDERED: Promethazine 12.5 MG in Sodium Chloride 0.9% 100 ML IV PRN (15:26)
[2021-03-25] MEDS ORDERED: Ondansetron 4 MG/2 ML SDV IVPUSH PRN (15:28)
[2021-03-25] MEDS: ALPRAZolam 0.25 MG Tab PO SCH (20:35)
[2021-03-25] MEDS: Pramipexole 0.125 MG Tab PO SCH (20:35)
[2021-03-25] MEDS ORDERED: Loperamide 2 MG Cap PO ONE (23:55)
[2021-03-25] MEDS ORDERED: Loperamide 2 MG Cap PO PRN (23:56)
[2021-03-26] MEDS: tiZANidine 2 MG Tab PO PRN ×2 (01:49→07:13)
[2021-03-26 06:53] VITALS: PULSE 87
[2021-03-26] MEDS: Sodium Chloride 0.9% 1,000 ML IV SCH (07:14)
[2021-03-26 07:44] LABS: ANION GAP 8.8 mmol/L (5-15); CHLORIDE,CL 107 mmol/L (98-107); SODIUM,NA 142 mmol/L (136-145)
[2021-03-26] MEDS: Isosorbide Mononitrate 30 MG Tab.ER PO SCH (08:47)
[2021-03-26] MEDS: DULoxetine 30 MG Cap PO SCH (08:47)
[2021-03-26] MEDS: Magnesium Oxide 500 MG Tab PO SCH (08:47)
[2021-03-26 08:48] VITALS: BP 112/68
[2021-03-26] MEDS ORDERED: Pregabalin 100 MG Cap PO SCH (09:00)
[2021-03-26] MEDS ORDERED: predniSONE 5 MG Tab PO SCH (09:00)
--- NOTE | 2021-03-26 11:02 | PCM.DCSUM1 ---
Discharge Summary - Hospital Course Free Text/Narrative:: Date of admission: 03/24/21 Date of discharge: 03/26/21 Admission diagnoses: Discharge diagnoses: Hospital course: Discharge and follow-up recommendations: - Discharge to - New medications at discharge: - Follow-up HPI summary: Kimberly is a 65yF patient admitted directly from the [facility] due to concerns of abdominal pain, nausea, hypotension and ORLIN as well as possible sepsis. She c/o increased abdominal pain x 1 week and associated nausea. She admitted to not drinking enough fluids for the past three days and had onset of diarrhea this morning. She also c/o dizziness and lightheadedness. She has continued to take her blood pressure medications of lisinopril and metoprolol despite decreased fluid intake and states she has urinated less and her urine has been rather dark in color. Her mouth has been rather dry. BP in clinic was 70/50 with repeat of 85/60, HR 90 with beta markell on board. Creatinine 1.85 with GFR 27, no known CKD, Phos 5.1. AST, ALT and alk phos slightly elevated. WBC 12.4, no neutrophilia suggestive of bacterial infection. Patient admitted to inpatient status for IV fluids and monitoring of labs. Hospital course: 03/25/21: Patient complains of nausea this morning. Reports two liquid stools this morning. She remains somewhat lightheaded, denies dizziness. Renal indices improved with IV fluids overnight. LFT's normalized. Blood pressure normalized. Repeat labs in am: CBC, CMP, Mg, Phos, CRP. 03/26/21: Patient denies nausea, had several loose stools yesterday, none since immodium was given last evening. Continues to complain of tenderness to the LUQ on palpation. Suspect viral gastroenteritis which induced nausea, diarrhea, decreased appetite with decreased fluid intake resulting in dehydration, ORLIN hypotension which have since improved with IV hydration. She is drinking fluids well orally this morning. Hospitalization problems and plan: # ORLIN; resolved. BUN 5, Creatinine 0.62 this morning, GFR > 60 # R/O sepsis - lactic acid 1.9 upon admission, procalcitonin 0.09 at [place] # Hypotension # Hyperphosphatemia; 5.1 in clinic, normalized to 3.9 morning after admission # Elevated CRP 57.4, decreased to 4.5 today. - Urine culture pending - Blood cultures pending - Restarted home prednisone today 5mg PO daily #Left upper quadrant abdominal pain - CT abdomen pelvis was negative. Lipase normal at [facility] prior to admission. #Diarrhea, unspecified type #Non-intractable vomiting, presence of nausea not specified, unspecified vomiting type #Fatigue, unspecified type # Elevated LFT's # Elevated alkaline phosphatase # Diarrhea - Zofran 4mg IV Q6H PRN nausea - Immodium 2mg PRN loose stool, max 8 tablets daily # Hypokalemia; resolved, 3.8 today after PO supplementation yesterday # Hypomagensemia; 1.5 today - Continue Mg oxide 500mg PO daily upon discharge home Chronic, stable conditions: # Hospitalization details: # FEN: Oral fluids, K 3.8, Mg 1.5 with PO supplementation, diet as tolerated # PPX: None. # Code status: FULL CODE # Emergency contact: Yovany Farmer [phone] # Disposition: Will plan to discharge patient home today as vitals and labs have normalized, no further nausea. Diarrhea improved with immodium. Will send Rx for ODT zofran, immodium and magnesium oxide 500mg PO daily. Plan to follow-up on 04/06/21 at [facility] per myself or sooner if patient has concerns. - Discharge Data Discharge Date: 03/26/21 Discharge Disposition: Home, Self-Care 01 Condition: Good - Referral to Home Health Primary Care Physician: Travis Mena MD - Discharge Plan Home Medications: Home Meds ALPRAZolam [Alprazolam] 1 mg PO BEDTIME 12/05/20 [History] Cholecalciferol (Vitamin D3) [Vitamin D3] 1,000 unit PO DAILY 12/05/20 [History] DULoxetine HCl [Duloxetine HCl] 30 mg PO DAILY 12/05/20 [History] Kristin Conway/Linoleic/Gamoleni [Evening Conway 1,000 mg Sftg] 1,000 mg PO BEDTIME PRN 12/05/20 [History] Evolocumab [Repatha Sureclick] 140 mg SQ Q14D 12/05/20 [History] Fish Oil/Borage/Flax/Om3,6,9 1 [Triple [place] Complex 3-6-9] 1 cap PO DAILY 12/05/20 [History] Folic Acid 2 mg PO DAILY 12/05/20 [History] Isosorbide Mononitrate [Imdur] 30 mg PO DAILY 12/05/20 [History] Metoprolol Tartrate 25 mg PO BIDMEALS 12/05/20 [History] Multivitamin [Multivitamins] 1 tab PO DAILY 12/05/20 [History] Oxybutynin Chloride [Ditropan Xl] 15 mg PO DAILY 12/05/20 [History] Pramipexole [Mirapex] 0.125 mg PO BEDTIME 12/05/20 [History] Pregabalin 100 mg PO DAILY 12/05/20 [History] Ubidecarenone [Coenzyme Q10] 100 mg PO DAILY 12/05/20 [History] predniSONE 5 mg PO DAILY 12/05/20 [History] tiZANidine [Zanaflex] 4 mg PO Q4H PRN 12/05/20 [History] Albuterol [Proventil Neb Soln] 2.5 mg INH Q4H PRN 03/24/21 [History] Apremilast [Otezla] 30 mg PO BID 03/24/21 [History] Aspirin [Aspirin EC] 81 mg PO DAILY 03/24/21 [History] Cetirizine [ZyrTEC] 10 mg PO DAILY PRN 03/24/21 [History] Cholecalciferol (Vitamin D3) [Vitamin D3] 1,000 unit PO DAILY 03/24/21 [History] Hydrocodone/Acetaminophen [HYDROcodone-Acetaminophen 5-325 MG] 1 tab PO Q4HR PRN 03/24/21 [History] Nitroglycerin [Nitrostat] 0.4 mg SL ASDIRECTED PRN 03/24/21 [History] hydroCHLOROthiazide [Hydrochlorothiazide] 25 mg PO DAILY PRN 03/24/21 [History] lisinopriL [Lisinopril] 20 mg PO DAILY 03/24/21 [History] - General Info Date of Service: 03/26/21 Functional Status: Reports: Pain Controlled, Tolerating Diet, Ambulating, Urinating, Incentive Spirometry (1000ml). Denies: New Symptoms - Review of Systems General: Reports: No Symptoms. Denies: Fever, Weakness, Fatigue, Chills HEENT: Reports: No Symptoms Pulmonary: Reports: No Symptoms Cardiovascular: Reports: No Symptoms Gastrointestinal: Reports: Abdominal Pain (on palpation of LUQ), Diarrhea (improved with immodium last evening ). Denies: Nausea Genitourinary: Reports: No Symptoms Musculoskeletal: Reports: Other (generalized aches and pains, chronic) Skin: Reports: No Symptoms Neurological: Reports: No Symptoms. Denies: Dizziness Psychiatric: Reports: No Symptoms - Patient Data Vitals - Most Recent: Last Vital Signs Temp 97.2 F 03/26/21 06:53 Pulse 87 03/26/21 06:53 Resp 16 03/26/21 06:53 BP 112/68 03/26/21 08:47 Pulse Ox 96 03/26/21 06:53 Weight - Most Recent: 189 lb 12.8 oz I&O - Last 24 hours: Intake & Output 03/25/21 03/26/21 03/26/21 22:59 06:59 14:59 Intake Total 300 1264 Balance 300 1264 Lab Results - Last 24 hrs: Laboratory Results - last 24 hr 03/26/21 03/26/21 Range/Units 07:00 07:00 WBC 7.04 (5.00-10.00) 10^3/uL RBC 4.12 (3.80-5.50) 10^6/uL Hgb 12.2 (12.0-16.0) g/dL Hct 38.2 (37.0-47.0) % MCV 92.7 H (82.0-92.0) fL MCH 29.6 (27.0-31.0) pg MCHC 31.9 L (32.0-36.0) g/dL RDW 14.2 (11.5-14.5) % Plt Count 254 (150-400) 10^3/uL MPV 9.8 (7.4-10.4) fL Immature Gran % (Auto) 0.1 (0.0-5.0) % Neut % (Auto) 56.9 (50.0-70.0) % Lymph % (Auto) 30.3 (20.0-40.0) % [place]ancock % (Auto) 8.4 H (2.0-8.0) % Eos % (Auto) 3.7 H (1.0-3.0) % Baso % (Auto) 0.6 (0.0-1.0) % Neut # (Auto) 4.01 (2.50-7.00) 10^3/uL Lymph # (Auto) 2.13 (1.00-4.00) 10^3/uL Hancock # (Auto) 0.59 (0.10-0.80) 10^3/uL Eos # (Auto) 0.26 (0.10-0.30) 10^3/uL Baso # (Auto) 0.04 (0.00-0.10) 10^3/uL Immature Gran # (Auto) 0.01 (0.00-0.50) 10^3/uL Sodium 142 (136-145) mmol/L Potassium 3.8 (3.5-5.1) mmol/L Chloride 107 (98-107) mmol/L Carbon Dioxide 30.0 (21.0-32.0) mmol/L Anion Gap 8.8 (5-15) mmol/L BUN 5 L (7-18) mg/dL Creatinine 0.62 (0.51-1.17) mg/dL Est Cr Clr Drug Dosing 87.48 mL/min Estimated GFR (MDRD) > 60 mL/min Glucose 86 (70-140) mg/dL Calcium 9.1 (8.7-10.3) mg/dL Phosphorus 3.7 (2.6-4.7) mg/dL Magnesium 1.5 L (1.8-2.4) mg/dL Total Bilirubin 0.4 (0.2-1.0) mg/dL AST 26 (15-37) U/L ALT 51 (14-63) U/L Alkaline Phosphatase 139 H (46-116) U/L C-Reactive Protein 4.5 H (0.0-0.9) mg/dL Total Protein 6.3 L (6.4-8.2) g/dL Albumin 2.86 L (3.40-5.00) g/dL Med Orders - Current: Current Medications Acetaminophen (Acetaminophen 325 Mg Tab) 650 mg PO Q6H PRN PRN Reason: pain Last Admin: 03/25/21 13:51 Dose: 650 mg Documented by: Alprazolam (Alprazolam 0.25 Mg Tab) 1 mg PO BEDTIME NNAMDI Last Admin: 03/25/21 20:35 Dose: 1 mg Documented by: Duloxetine HCl (Duloxetine 30 Mg Cap) 30 mg PO DAILY NNAMDI Last Admin: 03/26/21 08:47 Dose: 30 mg Documented by: Sodium Chloride (Normal Saline) 1,000 mls @ 999 mls/hr IV .BOLUS [facility] Last Admin: 03/24/21 17:43 Dose: 999 mls/hr Documented by: Sodium Chloride (Normal Saline) 1,000 mls @ 75 mls/hr IV ASDIRECTED [facility] Last Admin: 03/26/21 07:14 Dose: 75 mls/hr Documented by: Promethazine HCl 12.5 mg/ (Sodium Chloride) 100.5 mls @ 400 mls/hr IV Q8H PRN PRN Reason: Nausea Isosorbide Mononitrate (Isosorbide Mononitrate 30 Mg Tab.Er) 30 mg PO DAILY [facility] Last Admin: 03/26/21 08:47 Dose: 30 mg Documented by: Loperamide HCl (Loperamide 2 Mg Cap) 2 mg PO Q2H PRN PRN Reason: Diarrhea Magnesium Oxide (Magnesium Oxide 500 Mg Tab) 500 mg PO DAILY [facility] Last Admin: 03/26/21 08:47 Dose: 500 mg Documented by: Nitroglycerin (Nitroglycerin 0.4 Mg Tab.Sl) 0.4 mg SL ASDIRECTED PRN PRN Reason: Chest Pain Non-Formulary Medication (Apremilast [Otezla]) 30 mg PO BID [facility] Ondansetron HCl (Ondansetron 4 Mg/2 Ml Sdv) 4 mg IVPUSH Q4H PRN PRN Reason: Nausea/Vomiting Last Admin: 03/25/21 15:34 Dose: 4 mg Documented by: Pramipexole Dihydrochloride (Pramipexole 0.125 Mg Tab) 0.125 mg PO BEDTIME [facility] Last Admin: 03/25/21 20:35 Dose: 0.125 mg Documented by: Prednisone (Prednisone 5 Mg Tab) 5 mg PO DAILY [facility] Last Admin: 03/26/21 08:47 Dose: 5 mg Documented by: Pregabalin (Pregabalin 100 Mg Cap) 100 mg PO DAILY [facility] Last Admin: 03/26/21 08:47 Dose: 100 mg Documented by: Sodium Chloride (Sodium Chloride 0.9% 10 Ml Syringe) 10 ml FLUSH Q8HR PRN PRN Reason: keep vein open Tizanidine HCl (Tizanidine 2 Mg Tab) 4 mg PO Q4H PRN PRN Reason: MUSCLE SPASMS Last Admin: 03/26/21 07:13 Dose: 4 mg Documented by: Discontinued Medications Diatrizoate Meglum/Diatrizoate Sod (Diatrizoate Meglumine/Diatrizoate Sodium 37% 30 Ml Bottle) 30 ml PO ONETIME ONE Stop: 03/25/21 12:43 Last Admin: 03/24/21 16:30 Dose: 30 ml Documented by: Sodium Chloride (Normal Saline) 1,000 mls @ 150 mls/hr IV ASDIRECTED NNAMDI Last Infusion: 03/25/21 11:06 Dose: 75 mls/hr Documented by: Loperamide HCl (Loperamide 2 Mg Cap) 4 mg PO ONETIME ONE Stop: 03/25/21 23:56 Last Admin: 03/26/21 00:06 Dose: 4 mg Documented by: Ondansetron HCl (Ondansetron 4 Mg/2 Ml Sdv) 4 mg IV Q6H PRN PRN Reason: Nausea/Vomiting Last Admin: 03/25/21 11:05 Dose: 4 mg Documented by: Potassium Chloride (Potassium Chloride 10 Meq Tab.Er) 20 meq PO ONETIME ONE Stop: 03/25/21 11:12 Last Admin: 03/25/21 11:32 Dose: 20 meq Documented by: - Exam Quality Assessment: Denies: Supplemental Oxygen General: Reports: Alert, Oriented, Cooperative, No Acute Distress HEENT: Reports: Pupils Equal, Mucous Membr. Moist/[place] Neck: Reports: Supple, Trachea Midline Lungs: Reports: Clear to Auscultation, Normal Respiratory Effort Cardiovascular: Reports: Regular Rate, Regular Rhythm, No Murmurs GI/Abdominal Exam: Normal Bowel Sounds, Soft, No Distention, Tender (LUQ remains tender to palpation) (Female) Exam: Deferred Rectal (Female) Exam: Deferred Back Exam: Reports: Normal Inspection, Full Range of Motion Extremities: Normal Inspection, Normal Range of Motion, Non-Tender, No Pedal Edema, Normal Capillary Refill Skin: Reports: Warm, Dry, Intact Neurological: Reports: No New Focal Deficit Psy/Mental Status: Reports: Alert, Normal Affect, Normal Mood
== END 2021-03-26 12:15 | disposition home or self-care (01) | DRG 720 ==
LOC: KA.MS 16:18 → UNDODISIN 03-26 12:15
PROVIDERS: ADMIT Nurse Practitioner Family; ATTEND Family Medicine
DX: A41.9 Sepsis, unspecified organism (principal); N17.9 Acute kidney failure, unspecified; E83.39 Other disorders of phosphorus metabolism; R19.7 Diarrhea, unspecified; R74.8 Abnormal levels of other serum enzymes; E87.6 Hypokalemia; M54.9 Dorsalgia, unspecified; E83.42 Hypomagnesemia; Z79.899 Other long term (current) drug therapy; Z79.82 Long term (current) use of aspirin; Z79.52 Long term (current) use of systemic steroids; Z88.0 Allergy status to penicillin; Z91.018 Allergy to other foods; A08.4 Viral intestinal infection, unspecified; E86.0 Dehydration
CPT/HCPCS: 36415; 74176; 80053; 81001; 83605; 83735; 84100; 85025; 86140; 87086; A9270-GY; J2405; J7030; J7040; J7512; Q9963

== ENCOUNTER 2021-09-03 17:19 | Emergency (ER) | payer BC, MEDICARE ==
[2021-09-03] MEDS ORDERED: Loperamide 2 MG Cap PO ONE (18:12)
[2021-09-03] MEDS ORDERED: Sodium Chloride 0.9% 1,000 ML IV ONE (18:12)
[2021-09-03] MEDS ORDERED: Ondansetron 4 MG/2 ML SDV IVPUSH ONE (18:13)
[2021-09-03 18:44] LABS: ANION GAP 21.5 mmol/L (5-15)
[2021-09-03] MEDS ORDERED: Iopamidol 755 Mg/ML 75 ML Bottle IVPUSH ONE (19:35)
[2021-09-03] MEDS ORDERED: Sodium Chloride 0.9% 50 ML IV SCH (19:45)
[2021-09-03] MEDS ORDERED: metroNIDAZOLE 500 MG Tab PO ONE (20:25)
[2021-09-03] MEDS ORDERED: Ondansetron 4 MG Tab.DIS PO ONE (20:30)
[2021-09-03] MEDS: Ondansetron 4 MG Tab.DIS ONE ×2 (23:16→23:22)
== END 2021-09-03 20:40 | disposition home or self-care (01) ==
LOC: KA.ED 17:19
DX: K29.70 Gastritis, unspecified, without bleeding (principal); B96.89 Other specified bacterial agents as the cause of diseases classified elsewhere; E86.0 Dehydration; E78.00 Pure hypercholesterolemia, unspecified; I10 Essential (primary) hypertension; E66.9 Obesity, unspecified; I25.2 Old myocardial infarction; Z68.30 Body mass index [BMI] 30.0-30.9, adult; Z88.0 Allergy status to penicillin; Z91.018 Allergy to other foods; Z88.8 Allergy status to other drugs, medicaments and biological substances; Z79.82 Long term (current) use of aspirin; Z79.899 Other long term (current) drug therapy
CPT/HCPCS: 36415; 74160; 80053; 81001; 85025; 96374; 99284; A9270; J2405; J7030; Q9967

== ENCOUNTER 2021-09-07 17:29 | Observation (INO) | payer BC, MEDICARE ==
[2021-09-07] MEDS ORDERED: Sodium Chloride 0.9% 10 ML Syringe FLUSH PRN (17:33)
[2021-09-07] MEDS ORDERED: Ondansetron 4 MG Tab.DIS PO PRN (17:33)
[2021-09-07] MEDS ORDERED: Nitroglycerin 0.4 MG Tab.SL SL PRN (17:50)
[2021-09-07] MEDS ORDERED: ALPRAZolam 0.25 MG Tab PO PRN (17:50)
[2021-09-07] MEDS: Metoprolol Tartrate 50 MG Tab PO SCH (18:48)
[2021-09-07] MEDS ORDERED: Pramipexole 0.125 MG Tab PO SCH (21:00)
[2021-09-07] MEDS: Acetaminophen 325 MG Tab PO PRN (21:28)
[2021-09-07] MEDS: Pregabalin 100 MG Cap PO SCH (21:28)
[2021-09-08] MEDS: Sodium Chloride 0.9% 1,000 ML IV SCH ×3 (02:38→20:13)
[2021-09-08 08:19] LABS: ANION GAP 13.9 mmol/L (5-15)
[2021-09-08] MEDS ORDERED: Magnesium Oxide 500 MG Tab PO SCH (09:00)
[2021-09-08] MEDS ORDERED: Isosorbide Mononitrate 30 MG Tab.ER PO SCH (09:00)
[2021-09-08] MEDS ORDERED: APREMILAST 30 MG PO SCH (09:00)
[2021-09-08] MEDS ORDERED: DULoxetine 30 MG Cap PO SCH (09:00)
[2021-09-08] MEDS ORDERED: Albuterol 0.083% 2.5 MG/3 ML Neb Soln INH PRN (09:05)
[2021-09-08] MEDS ORDERED: Non-Formulary Medication 1 Each (Acetaminophen [Tylenol] 325 MG Tablet) PO PRN (09:05)
[2021-09-08] MEDS ORDERED: tiZANidine 4 MG Tab PO PRN (09:05)
[2021-09-08] MEDS ORDERED: predniSONE 5 MG Tab PO SCH (09:15)
[2021-09-08] MEDS ORDERED: Lidocaine 5% 700 MG Patch TOP SCH (09:15)
[2021-09-08] MEDS ORDERED: Acetaminophen/HYDROcodone 325-5 MG Tab PO PRN (10:20)
[2021-09-08] MEDS: Acetaminophen 325 MG Tab PO PRN (10:53)
[2021-09-08] MEDS ORDERED: ALPRAZolam 1 MG Tab PO PRN (13:15)
[2021-09-08] MEDS: DULOXETINE 30 MG PO SCH ×2 (13:54→14:07)
[2021-09-08] MEDS ORDERED: PREGABALIN 100 MG PO SCH ×2 (14:00→21:00)
[2021-09-08] MEDS: Aspirin 81 MG Tab.EC PO SCH (14:10)
[2021-09-08] MEDS: Lidocaine 5% 700 MG Patch TOP SCH (14:10)
[2021-09-08] MEDS: ISOSORBIDE MONONITRATE 60 MG PO SCH (14:12)
[2021-09-08] MEDS: PREDNISONE 5 MG PO SCH (14:12)
[2021-09-08] MEDS: PTOM-Metoprolol Tartrate 50 MG Tab PO SCH ×2 (14:13→17:58)
[2021-09-08] MEDS: Pregabalin 100 MG Cap PO SCH (14:14)
[2021-09-08] MEDS: Metoprolol Tartrate 50 MG Tab PO SCH (14:14)
[2021-09-08] MEDS: Magnesium Oxide 500 MG Tab PO SCH (14:17)
[2021-09-08] MEDS: TIZANIDINE 2 MG PO PRN ×2 (17:08→22:10)
[2021-09-08] MEDS ORDERED: Pramipexole 0.125 MG Tab PO SCH (21:00)
[2021-09-08] MEDS ORDERED: PRAMIPEXOLE 0.125 MG PO SCH (21:00)
[2021-09-09 08:32] LABS: CHLORIDE,CL 100 mmol/L (98-107)
[2021-09-09] MEDS: PTOM-Metoprolol Tartrate 50 MG Tab PO SCH (08:43)
[2021-09-09] MEDS: ISOSORBIDE MONONITRATE 60 MG PO SCH (08:44)
[2021-09-09] MEDS: DULOXETINE 30 MG PO SCH (08:46)
[2021-09-09] MEDS: TIZANIDINE 2 MG PO PRN (08:46)
[2021-09-09] MEDS: PREDNISONE 5 MG PO SCH (08:46)
[2021-09-09] MEDS: Magnesium Oxide 500 MG Tab PO SCH (08:47)
[2021-09-09] MEDS: Aspirin 81 MG Tab.EC PO SCH (08:47)
[2021-09-09] MEDS: Lidocaine 5% 700 MG Patch TOP SCH (08:48)
[2021-09-09] MEDS: Sodium Chloride 0.9% 1,000 ML IV SCH (08:51)
[2021-09-09] MEDS ORDERED: Oxybutynin 5 MG Tab.ER PO SCH (09:00)
[2021-09-09] MEDS ORDERED: PREDNISONE 5 MG PO SCH (09:00)
[2021-09-09] MEDS ORDERED: ISOSORBIDE MONONITRATE 60 MG PO SCH (09:00)
[2021-09-09 09:23] LABS: SODIUM,NA 143 mmol/L (136-145)
[2021-09-09 09:24] LABS: ANION GAP 18.6 mmol/L (5-15)
[2021-09-09] MEDS ORDERED: Loperamide 2 MG Cap PO PRN (10:03)
[2021-09-09] MEDS ORDERED: Loperamide 2 MG Cap PO ONE (10:04)
== END 2021-09-09 12:50 | disposition home or self-care (01) ==
LOC: KA.MS 18:10
PROVIDERS: ADMIT Nurse Practitioner Family; ATTEND Nurse Practitioner Family
DX: N17.9 Acute kidney failure, unspecified (principal); E86.0 Dehydration; I95.9 Hypotension, unspecified; D72.829 Elevated white blood cell count, unspecified; E83.42 Hypomagnesemia; D50.9 Iron deficiency anemia, unspecified; D75.89 Other specified diseases of blood and blood-forming organs; R06.02 Shortness of breath; E66.9 Obesity, unspecified; R06.00 Dyspnea, unspecified; R20.0 Anesthesia of skin; I25.2 Old myocardial infarction; M79.7 Fibromyalgia; G25.81 Restless legs syndrome; M35.2 Behcet's disease; I11.0 Hypertensive heart disease with heart failure; I50.30 Unspecified diastolic (congestive) heart failure; E78.5 Hyperlipidemia, unspecified; M19.90 Unspecified osteoarthritis, unspecified site; M81.0 Age-related osteoporosis without current pathological fracture; I27.20 Pulmonary hypertension, unspecified; M51.36 Other intervertebral disc degeneration, lumbar region; E55.9 Vitamin D deficiency, unspecified; M62.838 Other muscle spasm; F41.9 Anxiety disorder, unspecified; G47.00 Insomnia, unspecified; Z98.890 Other specified postprocedural states; Z90.49 Acquired absence of other specified parts of digestive tract; Z90.711 Acquired absence of uterus with remaining cervical stump; Z95.5 Presence of coronary angioplasty implant and graft; Z79.82 Long term (current) use of aspirin; Z79.899 Other long term (current) drug therapy; Z88.0 Allergy status to penicillin; Z88.7 Allergy status to serum and vaccine; Z88.8 Allergy status to other drugs, medicaments and biological substances; Z91.018 Allergy to other foods; Z20.822 Contact with and (suspected) exposure to COVID-19; Z87.81 Personal history of (healed) traumatic fracture; Z68.31 Body mass index [BMI] 31.0-31.9, adult
CPT/HCPCS: 36415; 80048; 82607; 83735; 84100; 84443; 85025; 86140; A9270-GY; G0378; G0379; J7030; J7512; U0002

== ENCOUNTER 2021-10-12 09:59 | Day surgery (SDC) | payer MEDICARE ==
[2021-10-12] MEDS ORDERED: Sodium Chloride 0.9% 10 ML Syringe FLUSH PRN (10:00)
[2021-10-12] MEDS ORDERED: Lactated Ringers 1,000 ML IV SCH (10:00)
[2021-10-12] MEDS ORDERED: Propofol 200 MG/20 ML SDV ONE (10:23)
[2021-10-12] MEDS ORDERED: Midazolam 1 MG/ML 2 ML SDV ONE (10:23)
[2021-10-12] MEDS ORDERED: Ondansetron 4 MG/2 ML SDV IVPUSH ONE (12:11)
== END 2021-10-12 14:20 | disposition home or self-care (01) ==
LOC: KA.SDS 09:59
PROVIDERS: ATTEND Family Medicine
DX: Z12.11 Encounter for screening for malignant neoplasm of colon (principal); D12.0 Benign neoplasm of cecum; K62.1 Rectal polyp; K64.8 Other hemorrhoids; I25.2 Old myocardial infarction; I10 Essential (primary) hypertension; E78.5 Hyperlipidemia, unspecified; G89.29 Other chronic pain; M79.7 Fibromyalgia; G25.81 Restless legs syndrome; M85.80 Other specified disorders of bone density and structure, unspecified site; J45.909 Unspecified asthma, uncomplicated; I25.10 Atherosclerotic heart disease of native coronary artery without angina pectoris; M35.2 Behcet's disease; E83.42 Hypomagnesemia; M62.830 Muscle spasm of back; E55.9 Vitamin D deficiency, unspecified; F32.A Depression, unspecified; Z98.890 Other specified postprocedural states; Z87.891 Personal history of nicotine dependence; Z68.31 Body mass index [BMI] 31.0-31.9, adult; Z79.899 Other long term (current) drug therapy; Z88.0 Allergy status to penicillin; Z88.8 Allergy status to other drugs, medicaments and biological substances; Z20.822 Contact with and (suspected) exposure to COVID-19
CPT/HCPCS: 00811; J2250; J2405; J2704; J7120

== ENCOUNTER 2021-11-04 09:41 | Emergency (ER) | payer MEDICARE ==
[2021-11-04] MEDS ORDERED: Sodium Chloride 0.9% 10 ML Syringe FLUSH PRN (10:14)
[2021-11-04 10:41] LABS: ANION GAP 14.8 mmol/L (5-15); CHLORIDE,CL 100 mmol/L (98-107); SODIUM,NA 139 mmol/L (136-145)
[2021-11-04 11:14] LABS: CORONAVIRUS COVID-19 NAA NEGATIVE (NEGATIVE)
== END 2021-11-04 12:45 | disposition home or self-care (01) ==
LOC: KA.ED 09:41
DX: K52.9 Noninfective gastroenteritis and colitis, unspecified (principal); M54.50 Low back pain, unspecified; E78.00 Pure hypercholesterolemia, unspecified; I10 Essential (primary) hypertension; I25.2 Old myocardial infarction; J44.9 Chronic obstructive pulmonary disease, unspecified; Z95.5 Presence of coronary angioplasty implant and graft; Z88.0 Allergy status to penicillin; Z91.018 Allergy to other foods; Z88.8 Allergy status to other drugs, medicaments and biological substances; Z79.82 Long term (current) use of aspirin; Z79.899 Other long term (current) drug therapy; Z20.822 Contact with and (suspected) exposure to COVID-19
CPT/HCPCS: 0240U; 36415; 71045; 74021; 80053; 82150; 83605; 83690; 85025; 99284-25

== ENCOUNTER 2022-03-25 15:40 | Inpatient (IN) | payer MEDICARE ==
[~2022-03-25 15:40] MED LIST: Sodium Chloride 0.9% 10 ML Syringe IV PRN
[2022-03-25] MEDS ORDERED: Sodium Chloride 0.9% 50 ML IV ONE (17:00)
[2022-03-25] MEDS ORDERED: Iopamidol 755 Mg/ML 75 ML Bottle IV ONE (17:00)
[2022-03-25] MEDS ORDERED: Ondansetron 4 MG/2 ML SDV IVPUSH ONE ×2 (17:30→21:30)
[2022-03-25] MEDS ORDERED: Labetalol 100 MG/20 ML MDV IV ONE (17:34)
[2022-03-25] MEDS ORDERED: Sodium Chloride 0.9% 1,000 ML IV ONE (17:40)
[2022-03-25] MEDS ORDERED: Ketorolac 30 MG/ML SDV IVPUSH ONE (18:24)
[2022-03-25] MEDS ORDERED: Labetalol 100 MG/20 ML MDV IVPUSH ONE ×2 (18:28→18:51)
[2022-03-25] MEDS ORDERED: Promethazine Topical Gel 25mg/0.5 ML Syringe TOP ONE (19:50)
[2022-03-25] MEDS ORDERED: tiZANidine 4 MG Tab PO ONE (21:35)
[2022-03-25] MEDS ORDERED: ALPRAZolam 0.25 MG Tab PO ONE (22:30)
[2022-03-26] MEDS ORDERED: predniSONE 5 MG Tab PO ONE (09:14)
[2022-03-26] MEDS ORDERED: Lisinopril 20 MG Tab PO ONE (09:14)
[2022-03-26] MEDS ORDERED: Pantoprazole 40 MG Vial IVPUSH ONE (13:35)
[2022-03-26] MEDS ORDERED: Metoclopramide 10 MG/2 ML SDV IVPUSH ONE (19:42)
[2022-03-26] MEDS ORDERED: Ondansetron 4 MG Tab.DIS PO ONE (21:50)
[2022-03-27] MEDS ORDERED: Pantoprazole 20 MG Tab, Delayed Release PO ONE (06:15)
[2022-03-27] MEDS ORDERED: predniSONE 5 MG Tab PO ONE (08:10)
[2022-03-27] MEDS ORDERED: Lisinopril 20 MG Tab PO ONE (08:10)
[2022-03-27] MEDS ORDERED: Metoclopramide 10 MG Tab PO ONE (08:15)
[2022-03-27] MEDS ORDERED: Loperamide 2 MG Cap PO ONE (09:55)
[2022-03-27] MEDS ORDERED: Metoprolol Tartrate 25 MG Tab PO ONE (13:00)
[2022-03-27] MEDS ORDERED: Lidocaine 5% 700 MG Patch TRDERM ONE (14:20)
[2022-03-27] MEDS ORDERED: cloNIDine 0.1 MG Tab PO ONE (15:45)
[2022-03-28] MEDS ORDERED: Potassium Chloride 20 MEQ Tab.ER PO ONE (12:00)
[2022-04-21 15:13] LABS: ANION GAP 12.1 mmol/L (5-15); CHLORIDE,CL 107 mmol/L (98-115); ESTIMATED GFR 84 mL/min (>=60); SODIUM,NA 141 mmol/L (136-145)
[2022-04-21 15:15] LABS: CHLORIDE,CL 106 mmol/L (98-115); SODIUM,NA 139 mmol/L (136-145)
[2022-04-21 15:16] LABS: ANION GAP 9.8 mmol/L (5-15); ESTIMATED GFR 94 mL/min (>=60)
[2022-04-21 15:18] LABS: ANION GAP 8.8 mmol/L (5-15); CHLORIDE,CL 103 mmol/L (98-115); ESTIMATED GFR 57 mL/min (>=60); SODIUM,NA 135 mmol/L (136-145)
== END 2022-03-28 13:15 | disposition home or self-care (01) | DRG 305 ==
LOC: KA.ZCENSUS 15:40 → OBSVTOIN 03-27 15:00
PROVIDERS: ADMIT Nurse Practitioner Family; ATTEND Student in an Organized Health Care Education/Training Program
DX: I16.0 Hypertensive urgency (principal); I10 Essential (primary) hypertension; R11.2 Nausea with vomiting, unspecified; R53.1 Weakness; I25.2 Old myocardial infarction; R00.0 Tachycardia, unspecified; I11.0 Hypertensive heart disease with heart failure; E83.42 Hypomagnesemia; M51.36 Other intervertebral disc degeneration, lumbar region; G25.81 Restless legs syndrome; I27.21 Secondary pulmonary arterial hypertension; M54.40 Lumbago with sciatica, unspecified side; I50.30 Unspecified diastolic (congestive) heart failure; E78.5 Hyperlipidemia, unspecified; M79.7 Fibromyalgia
CPT/HCPCS: 36415; 74177; 80048; 80053; 83735; 85025; 86140; A9270-GY; C9113; J1885; J2405; J2765; J3490; J7030; J7512; Q9967

== ENCOUNTER 2022-11-11 15:24 | Inpatient (IN) | payer MEDICARE ==
[2022-11-11] MEDS ORDERED: Iopamidol 755 Mg/ML 100 ML Bottle IV ONE (15:44)
[2022-11-11] MEDS ORDERED: Sodium Chloride 0.9% 50 ML IV SCH (15:45)
[2022-11-11] MEDS ORDERED: Ondansetron 4 MG/2 ML SDV IVPUSH PRN (15:51)
[2022-11-11] MEDS ORDERED: HYDROmorphone 1 MG/ML Syringe IVPUSH PRN (15:53)
[2022-11-11] MEDS ORDERED: Piperacillin/Tazobactam 4.5 GM in Sodium Chloride 0.9% 100 ML IV ONE (15:55)
[2022-11-11] MEDS: Sodium Chloride 0.9% 1,000 ML IV SCH ×2 (16:24→21:26)
[2022-11-11] MEDS ORDERED: Acetaminophen 325 MG Tab PO PRN (17:01)
[2022-11-11] MEDS ORDERED: Cetirizine 10 MG Tab PO PRN (18:04)
[2022-11-11] MEDS: tiZANidine 4 MG Tab PO PRN (19:32)
[2022-11-11] MEDS: Pramipexole 0.125 MG Tab PO SCH (20:51)
[2022-11-11] MEDS: Famotidine 20 MG Tab PO SCH (20:51)
[2022-11-12] MEDS: ALPRAZolam 0.25 MG Tab PO PRN (00:32)
[2022-11-12] MEDS: Sodium Chloride 0.9% 1,000 ML IV SCH ×3 (05:32→21:11)
[2022-11-12 06:16] LABS: APPEARANCE,URINE CLEAR (CLEAR); BILIRUBIN,URINE NEGATIVE (NEGATIVE); COLOR,URINE YELLOW (YELLOW); GLUCOSE,URINE NEGATIVE (NEGATIVE); KETONES,URINE NEGATIVE (NEGATIVE); LEUKOCYTE ESTERASE,URINE NEGATIVE (NEGATIVE); NITRITE,URINE NEGATIVE (NEGATIVE); OCCULT BLOOD,URINE TRACE-INTACT (NEGATIVE); PROTEIN,URINE 30 mg/dL (NEGATIVE); UROBILINOGEN,URINE 0.2 E.U./dL (0.2-1.0)
[2022-11-12 06:28] LABS: BACTERIA,URINE RARE /HPF (NONE TO FEW); EPITHELIAL CELLS,URINE RARE /LPF; WBC,URINE 0-5 /HPF (0-5)
[2022-11-12 07:11] LABS: BASOPHILS ABSOLUTE AUTO 0.05 10^3/uL (0.00-0.10); BASOPHILS PERCENT AUTO 0.4 % (0.0-1.0); EOSINOPHILS ABSOLUTE AUTO 0.05 10^3/uL (0.10-0.30); EOSINOPHILS PERCENT AUTO 0.4 % (1.0-3.0); HEMATOCRIT 45.1 % (37.0-47.0); HEMOGLOBIN 14.5 g/dL (12.0-16.0); IMMATURE GRAN ABSOLUTE AUTO 0.02 10^3/uL (0.00-0.50); IMMATURE GRAN PERCENT AUTO 0.2 % (0.0-5.0); LYMPHOCYTES ABSOLUTE AUTO 3.21 10^3/uL (1.00-4.00); LYMPHOCYTES PERCENT AUTO 24.9 % (20.0-40.0); MEAN CORPUSCULAR HEMOGLOBIN 32.4 pg (27.0-31.0); MEAN CORPUSCULAR HGB CONC 32.2 g/dL (32.0-36.0); MEAN CORPUSCULAR VOLUME 100.9 fL (82.0-92.0); MEAN PLATELET VOLUME 9.5 fL (7.4-10.4); MONOCYTES ABSOLUTE AUTO 0.97 10^3/uL (0.10-0.80); MONOCYTES PERCENT AUTO 7.5 % (2.0-8.0); NEUTROPHILS PERCENT AUTO 66.6 % (50.0-70.0); PLATELET COUNT,PLT 295 10^3/uL (150-400); RED BLOOD CELL COUNT 4.47 10^6/uL (3.80-5.50); RED CELL DISTRIBUTION WIDTH 12.9 % (11.5-14.5)
[2022-11-12] MEDS: Omeprazole 20 MG Cap.CR PO SCH (07:19)
[2022-11-12 07:50] LABS: ANION GAP 11.5 mmol/L (5-15); CALCIUM 8.2 mg/dL (8.7-10.3); CARBON DIOXIDE,CO2 26.4 mmol/L (21.0-32.0); CREATININE 0.98 mg/dL (0.51-1.17); EST CRCL DRUG DOSING (CG) 50.81 mL/min; MAGNESIUM 1.8 mg/dL (1.8-2.4); POTASSIUM,K 4.9 mmol/L (3.5-5.1)
[2022-11-12] MEDS ORDERED: Oxybutynin 5 MG Tab.ER PO SCH (09:00)
[2022-11-12] MEDS ORDERED: Lidocaine 5% 700 MG Patch TOP PRN (09:00)
[2022-11-12] MEDS ORDERED: Spironolactone 25 MG Tab PO SCH (09:00)
[2022-11-12] MEDS: Isosorbide Mononitrate 30 MG Tab.ER PO SCH (10:13)
[2022-11-12] MEDS: predniSONE 5 MG Tab PO SCH (10:14)
[2022-11-12] MEDS: Aspirin 81 MG Tab.EC PO SCH (10:14)
[2022-11-12] MEDS: DULoxetine 30 MG Cap PO SCH (10:14)
[2022-11-12] MEDS ORDERED: Acetaminophen/HYDROcodone 325-10 MG Tab PO PRN (11:01)
[2022-11-12] MEDS: tiZANidine 4 MG Tab PO PRN ×2 (13:10→21:11)
[2022-11-12] MEDS: Famotidine 20 MG Tab PO SCH (21:07)
[2022-11-12] MEDS: APREMILAST 30 MG PO SCH (21:07)
[2022-11-12] MEDS: Pramipexole 0.125 MG Tab PO SCH (21:07)
[2022-11-13] MEDS: ALPRAZolam 0.25 MG Tab PO PRN (01:44)
[2022-11-13] MEDS: Omeprazole 20 MG Cap.CR PO SCH ×2 (06:16→06:36)
[2022-11-13] MEDS: Sodium Chloride 0.9% 1,000 ML IV SCH (06:16)
[2022-11-13 07:09] LABS: BASOPHILS ABSOLUTE AUTO 0.04 10^3/uL (0.00-0.10); BASOPHILS PERCENT AUTO 0.4 % (0.0-1.0); EOSINOPHILS ABSOLUTE AUTO 0.09 10^3/uL (0.10-0.30); EOSINOPHILS PERCENT AUTO 0.9 % (1.0-3.0); HEMATOCRIT 38.2 % (37.0-47.0); HEMOGLOBIN 12.4 g/dL (12.0-16.0); IMMATURE GRAN ABSOLUTE AUTO 0.02 10^3/uL (0.00-0.50); IMMATURE GRAN PERCENT AUTO 0.2 % (0.0-5.0); LYMPHOCYTES ABSOLUTE AUTO 2.33 10^3/uL (1.00-4.00); LYMPHOCYTES PERCENT AUTO 22.4 % (20.0-40.0); MEAN CORPUSCULAR HEMOGLOBIN 32.8 pg (27.0-31.0); MEAN CORPUSCULAR HGB CONC 32.5 g/dL (32.0-36.0); MEAN CORPUSCULAR VOLUME 101.1 fL (82.0-92.0); MEAN PLATELET VOLUME 9.5 fL (7.4-10.4); MONOCYTES ABSOLUTE AUTO 0.71 10^3/uL (0.10-0.80); MONOCYTES PERCENT AUTO 6.8 % (2.0-8.0); NEUTROPHILS PERCENT AUTO 69.3 % (50.0-70.0); PLATELET COUNT,PLT 251 10^3/uL (150-400); RED BLOOD CELL COUNT 3.78 10^6/uL (3.80-5.50); RED CELL DISTRIBUTION WIDTH 12.7 % (11.5-14.5); WHITE BLOOD CELL COUNT,WBC 10.39 10^3/uL (5.00-10.00)
[2022-11-13 07:23] LABS: ANION GAP 9.8 mmol/L (5-15); CALCIUM 7.4 mg/dL (8.7-10.3); CARBON DIOXIDE,CO2 25.1 mmol/L (21.0-32.0); CREATININE 0.6 mg/dL (0.51-1.17); EST CRCL DRUG DOSING (CG) 82.99 mL/min; POTASSIUM,K 3.9 mmol/L (3.5-5.1)
[2022-11-13] MEDS: DULoxetine 30 MG Cap PO SCH (08:13)
[2022-11-13] MEDS: predniSONE 5 MG Tab PO SCH (08:13)
[2022-11-13] MEDS: Aspirin 81 MG Tab.EC PO SCH (08:14)
[2022-11-13] MEDS: APREMILAST 30 MG PO SCH (08:15)
[2022-11-13] MEDS: Isosorbide Mononitrate 30 MG Tab.ER PO SCH (09:39)
== END 2022-11-13 11:30 | disposition home or self-care (01) | DRG 641 ==
LOC: KA.MS 15:30
PROVIDERS: ADMIT Nurse Practitioner Family; ATTEND Student in an Organized Health Care Education/Training Program
DX: E86.0 Dehydration (principal); K52.9 Noninfective gastroenteritis and colitis, unspecified; E87.1 Hypo-osmolality and hyponatremia; R79.89 Other specified abnormal findings of blood chemistry; D72.829 Elevated white blood cell count, unspecified; R31.29 Other microscopic hematuria; E78.5 Hyperlipidemia, unspecified; M51.36 Other intervertebral disc degeneration, lumbar region; G25.81 Restless legs syndrome; N32.81 Overactive bladder; M54.42 Lumbago with sciatica, left side; M54.41 Lumbago with sciatica, right side; G89.4 Chronic pain syndrome; M85.89 Other specified disorders of bone density and structure, multiple sites; J30.2 Other seasonal allergic rhinitis; I51.89 Other ill-defined heart diseases; I11.9 Hypertensive heart disease without heart failure; I25.2 Old myocardial infarction; Z95.5 Presence of coronary angioplasty implant and graft; Z79.52 Long term (current) use of systemic steroids; Z79.899 Other long term (current) drug therapy; Z98.890 Other specified postprocedural states
CPT/HCPCS: 36415; 74177; 80048; 81001; 83605; 83735; 85025; 86140; 87040; A9270-GY; J2543; J3490; J7030; J7512; Q9967

== ENCOUNTER 2024-01-29 10:24 | Emergency (ER) | payer MEDICARE ==
[2024-01-29 10:53] LABS: HEMATOCRIT 49.9 % (37.0-47.0); HEMOGLOBIN 16.9 g/dL (12.0-16.0); MEAN CORPUSCULAR HEMOGLOBIN 32.8 pg (27.0-31.0); MEAN CORPUSCULAR HGB CONC 33.9 g/dL (32.0-36.0); MEAN CORPUSCULAR VOLUME 96.9 fL (82.0-92.0); MEAN PLATELET VOLUME 12.1 fL (7.4-10.4); RED BLOOD CELL COUNT 5.15 10^6/uL (3.80-5.50); RED CELL DISTRIBUTION WIDTH 13.3 % (11.5-14.5); WHITE BLOOD CELL COUNT,WBC 16.47 10^3/uL (5.00-10.00)
[2024-01-29] MEDS: Sodium Chloride 0.9% 1,000 ML IV SCH ×2 (10:59→12:18)
[2024-01-29] MEDS: Ondansetron 4 MG/2 ML SDV IVPUSH ONE (10:59)
[2024-01-29] MEDS: HYDROmorphone 1 MG/ML Syringe IVPUSH ONE ×2 (11:06→12:53)
[2024-01-29] MEDS: Metoprolol Tartrate 5 MG/5 ML SDV IVPUSH ONE ×2 (11:26→12:45)
[2024-01-29 11:28] LABS: LYMPHOCYTES PERCENT MAN 34 % (20-40); SEG NEUTROPHILS PERCENT MAN 51 % (50-70); SLIDE REVIEW YES
[2024-01-29 11:29] LABS: BASOPHILS PERCENT MAN 2 % (0-1); MONOCYTES PERCENT MAN 13 % (2-8)
[2024-01-29 11:31] LABS: PLATELET CLUMPS FEW
[2024-01-29 11:34] LABS: ALANINE AMINOTRANSFERASE,ALT 178 U/L (14-63); ALBUMIN 4.23 g/dL (3.40-5.00); ALKALINE PHOSPHATASE 104 U/L (46-116); ANION GAP 16.1 mmol/L (5-15); ASPARTATE AMNIOTRANSFERASE,AST 40 U/L (15-37); BLOOD UREA NITROGEN,BUN 25 mg/dL (7-18); CALCIUM 9.8 mg/dL (8.7-10.3); CARBON DIOXIDE,CO2 28.5 mmol/L (21.0-32.0); CHLORIDE,CL 95 mmol/L (98-107); CREATININE 1.21 mg/dL (0.51-1.17); GLUCOSE RANDOM 106 mg/dL (70-140); POTASSIUM,K 3.6 mmol/L (3.5-5.1); PROTEIN TOTAL,TP 7.4 g/dL (6.4-8.2); SODIUM,NA 136 mmol/L (136-145)
[2024-01-29 11:37] LABS: ESTIMATED GFR 49 mL/min (>=60)
[2024-01-29] MEDS: Metoclopramide 10 MG/2 ML SDV IVPUSH ONE (12:53)
[2024-01-29] MEDS: Iopamidol 755 Mg/ML 100 ML Bottle IV ONE (13:16)
[2024-01-29] MEDS: Sodium Chloride 0.9% 50 ML IV SCH (13:16)
[2024-01-29] MEDS: Diatrizoate Meglumine/Diatrizoate Sodium 37% 30 ML Bottle PO ONE (13:16)
[2024-01-29 14:35] LABS: APPEARANCE,URINE CLEAR (CLEAR); BACTERIA,URINE RARE /HPF (NONE TO FEW); BILIRUBIN,URINE NEGATIVE (NEGATIVE); COLOR,URINE YELLOW (YELLOW); EPITHELIAL CELLS,URINE FEW /LPF; GLUCOSE,URINE NEGATIVE (NEGATIVE); KETONES,URINE NEGATIVE (NEGATIVE); LEUKOCYTE ESTERASE,URINE NEGATIVE (NEGATIVE); NITRITE,URINE NEGATIVE (NEGATIVE); OCCULT BLOOD,URINE TRACE-INTACT (NEGATIVE); PH,URINE 6.5 (5.0-9.0); PROTEIN,URINE NEGATIVE (NEGATIVE); RBC,URINE 0-5 /HPF (0-5); UROBILINOGEN,URINE 0.2 E.U./dL (0.2-1.0); WBC,URINE 0-5 /HPF (0-5)
[2024-01-29] MEDS: Metoprolol Succinate 25 MG Tab.ER PO ONE (14:38)
== END 2024-01-29 15:15 | disposition home or self-care (01) ==
LOC: KA.ED 10:24
DX: R11.2 Nausea with vomiting, unspecified (principal); R10.9 Unspecified abdominal pain; I16.0 Hypertensive urgency; I10 Essential (primary) hypertension; R10.814 Left lower quadrant abdominal tenderness; E78.00 Pure hypercholesterolemia, unspecified; J44.9 Chronic obstructive pulmonary disease, unspecified; Z90.49 Acquired absence of other specified parts of digestive tract; Z90.710 Acquired absence of both cervix and uterus; Z79.899 Other long term (current) drug therapy; Z79.82 Long term (current) use of aspirin; Z88.0 Allergy status to penicillin; Z91.018 Allergy to other foods; Z88.8 Allergy status to other drugs, medicaments and biological substances
CPT/HCPCS: 36415; 74177; 80053; 81001; 83605; 85025; 96361; 96374; 96375; 96376; 99284; 99284-25; A9270-GY; J1170; J2405; J2765; J3490; J7030; Q9963; Q9967

== ENCOUNTER 2024-10-27 12:26 | Emergency (ER) | payer MEDICARE, BC ==
[2024-10-27] MEDS: Ketorolac 30 MG/ML SDV IVPUSH ONE (12:51)
[2024-10-27] MEDS: Labetalol 100 MG/20 ML MDV IVPUSH ONE (12:51)
[2024-10-27] MEDS: Ondansetron 4 MG/2 ML SDV IVPUSH ONE ×2 (12:51→15:43)
[2024-10-27] MEDS: Sodium Chloride 0.9% 1,000 ML IV ONE ×2 (12:52→14:34)
[2024-10-27 12:53] LABS: BASOPHILS ABSOLUTE AUTO 0.05 10^3/uL (0.00-0.10); BASOPHILS PERCENT AUTO 0.6 % (0.0-1.0); EOSINOPHILS ABSOLUTE AUTO 0.01 10^3/uL (0.10-0.30); EOSINOPHILS PERCENT AUTO 0.1 % (1.0-3.0); HEMATOCRIT 45.2 % (37.0-47.0); HEMOGLOBIN 14.8 g/dL (12.0-16.0); IMMATURE GRAN ABSOLUTE AUTO 0.01 10^3/uL (0.00-0.04); IMMATURE GRAN PERCENT AUTO 0.1 % (0.0-0.4); LYMPHOCYTES PERCENT AUTO 21.2 % (20.0-40.0); MEAN CORPUSCULAR HEMOGLOBIN 33.6 pg (27.0-31.0); MEAN CORPUSCULAR HGB CONC 32.7 g/dL (32.0-36.0); MEAN CORPUSCULAR VOLUME 102.7 fL (82.0-92.0); MEAN PLATELET VOLUME 10.1 fL (7.4-10.4); MONOCYTES PERCENT AUTO 7.1 % (2.0-8.0); NEUTROPHILS ABSOLUTE AUTO 6.02 10^3/uL (2.50-7.00); NEUTROPHILS PERCENT AUTO 70.9 % (50.0-70.0); PLATELET COUNT,PLT 282 10^3/uL (150-400); RED CELL DISTRIBUTION WIDTH 12.6 % (11.5-14.5); WHITE BLOOD CELL COUNT,WBC 8.49 10^3/uL (5.00-10.00)
[2024-10-27 13:16] LABS: ALANINE AMINOTRANSFERASE,ALT 23 U/L (14-63); ALBUMIN 3.86 g/dL (3.40-5.00); ALKALINE PHOSPHATASE 73 U/L (46-116); ANION GAP 14.9 mmol/L (5-15); ASPARTATE AMNIOTRANSFERASE,AST 22 U/L (15-37); BILIRUBIN TOTAL 0.6 mg/dL (0.2-1.0); BLOOD UREA NITROGEN,BUN 10 mg/dL (7-18); CALCIUM 9.5 mg/dL (8.7-10.3); CARBON DIOXIDE,CO2 28.8 mmol/L (21.0-32.0); CHLORIDE,CL 101 mmol/L (98-107); CREATININE 0.68 mg/dL (0.51-1.17); GLUCOSE RANDOM 124 mg/dL (70-140); LIPASE 15 U/L (16-77); POTASSIUM,K 3.7 mmol/L (3.5-5.1); PROTEIN TOTAL,TP 6.9 g/dL (6.4-8.2); SODIUM,NA 141 mmol/L (136-145)
[2024-10-27] MEDS: HYDROmorphone 1 MG/ML Syringe IVPUSH ONE ×2 (13:19→15:38)
[2024-10-27 13:21] LABS: ESTIMATED GFR 95 mL/min (>=60)
[2024-10-27 13:34] LABS: BILIRUBIN,URINE NEGATIVE (NEGATIVE); COLOR,URINE YELLOW (YELLOW); GLUCOSE,URINE NEGATIVE (NEGATIVE); KETONES,URINE 40 mg/dL (NEGATIVE); LEUKOCYTE ESTERASE,URINE NEGATIVE (NEGATIVE); NITRITE,URINE NEGATIVE (NEGATIVE); OCCULT BLOOD,URINE TRACE-INTACT (NEGATIVE); PH,URINE 6.5 (5.0-9.0); PROTEIN,URINE 30 mg/dL (NEGATIVE); UROBILINOGEN,URINE 0.2 E.U./dL (0.2-1.0)
[2024-10-27 13:41] LABS: APPEARANCE,URINE SLIGHTLY CLOUDY (CLEAR); BACTERIA,URINE RARE /HPF (NONE TO FEW); EPITHELIAL CELLS,URINE RARE /LPF; WBC,URINE 0-5 /HPF (0-5)
[2024-10-27 13:42] LABS: MUCUS,URINE RARE /LPF (NEGATIVE)
[2024-10-27] MEDS: Ondansetron 4 MG Tab.DIS PO ONE (15:38)
== END 2024-10-27 15:55 | disposition home or self-care (01) ==
LOC: KA.ED 12:26
DX: R19.7 Diarrhea, unspecified (principal); R11.2 Nausea with vomiting, unspecified; R10.32 Left lower quadrant pain; I25.2 Old myocardial infarction; I10 Essential (primary) hypertension; J44.9 Chronic obstructive pulmonary disease, unspecified; Z90.49 Acquired absence of other specified parts of digestive tract; Z90.710 Acquired absence of both cervix and uterus; Z88.0 Allergy status to penicillin; Z88.8 Allergy status to other drugs, medicaments and biological substances; Z91.018 Allergy to other foods; Z79.82 Long term (current) use of aspirin; Z79.899 Other long term (current) drug therapy
CPT/HCPCS: 74176; 80053; 81001; 83690; 85025; 96361; 96374; 96375; 96376; 99284; 99284-25; A9270-GY; J1171; J1885; J1920; J2405; J7030